=== PATIENT | male | born 1975 | race Caucasian/White ===

== ENCOUNTER → 2017-09-28 | Outpatient (CLI) | payer BC | END | disposition home or self-care (01) | LOC: LABWHC1 08:47 | PROVIDERS: ATTEND Orthopaedic Surgery | DX: E55.9 Vitamin D deficiency, unspecified (principal) | CPT/HCPCS: 36415; 82306 ==

== ENCOUNTER → 2017-10-30 | Outpatient (CLI) | payer BC ==
--- NOTE | 2017-10-30 10:22 | CT ---
EXAMINATION TYPE: CT ankle RT wo con DATE OF EXAM: 10/30/2017 COMPARISON: NONE HISTORY: Right ankle pain. History of diabetic neuropathy, foot ulcerations, Charcot joint, prior lef t great toe amputation and contractures. CT DLP: 287 mGycm Automated exposure control for dose reduction was used. TECHNIQUE: Contiguous axial CT slices were obtained of the right ankle without intravenous contrast. Coronal and sagittal reformats were obtained for review. FINDINGS: There is been interval surgical fusion of the right medial hindfoot, midfoot and forefoot extending f rom the talus through the navicular into the first cuneiform and throughout the entirety of the first metatarsal abutting the first metatarsal phalangeal joint. As seen on the prior exam there are exten sive osseous erosions, subchondral cysts, and osseous bone cysts primarily involving the midfoot part icularly of the navicular, first cuneiform, and second cuneiform but also involving the third cuneifo rm and cuboid bone to lesser degree. Osseous cysts are also seen within the calcaneus and talus. Larg e protuberant Achilles and plantar enthesophytes are seen. Degenerative changes are also identified o f the proximal interphalangeal joints and distal interphalangeal joints. No new acute fracture is see n. Chronic fracture deformity is noted of the third distal and mid diaphyseal metatarsal. Innumerable osseous fragments are seen within the midfoot from the known Charcot joint. Soft tissue swelling is seen circumferentially overlying the midfoot and to a lesser degree within the forefoot. Evaluation o f the ligaments and tendons is limited on CT. Achilles appears intact. No new focal fluid collection is identified. Tibiotalar joint space is maintained ankle mortise is intact. IMPRESSION: INTERVAL SURGICAL FUSION OF THE HINDFOOT AND FOREFOOT MEDIALLY WITH EXTENSIVE ARTHROPATHY, EROSIONS, AND CHARCOT JOINT OF THE RIGHT MIDFOOT. THERE IS PRESUMED COMPONENT OF OSTEOARTHRITIS GIVEN THE DISTR IBUTION AND INVOLVEMENT OF THE INTERPHALANGEAL JOINTS. DIFFUSE SOFT TISSUE SWELLING IS NOTED WITHOUT NEW FOCAL FLUID COLLECTION. NO NEW FRACTURE OR DISLOCATION.
== END | disposition home or self-care (01) ==
LOC: RADCTMAIN 06:53
PROVIDERS: ATTEND Orthopaedic Surgery
DX: M12.871 Other specific arthropathies, not elsewhere classified, right ankle and foot (principal); M85.871 Other specified disorders of bone density and structure, right ankle and foot; A52.16 Charcot's arthropathy (tabetic); Z98.890 Other specified postprocedural states

== ENCOUNTER → 2018-02-24 | Outpatient (CLI) | payer BC | END | disposition home or self-care (01) | LOC: LABWHC1 08:51 | PROVIDERS: ATTEND Thoracic Surgery (Cardiothoracic Vascular Surgery) | DX: E63.8 Other specified nutritional deficiencies (principal) | CPT/HCPCS: 36415; 84134 ==

== ENCOUNTER → 2018-03-17 | Outpatient (CLI) | payer BC ==
--- NOTE | 2018-03-17 13:38 | NM ---
EXAMINATION TYPE: NM bone 3 phase DATE OF EXAM: 03/17/2018 COMPARISON: 07/10/2015 HISTORY: Line Triple phase bone scintigraphy was performed following the injection of 24.525 mCi Tc 99m MDP. Immed iate images and 4 hours post injection images acquired. FINDINGS: There is increased perfusion to the right ankle and foot. Increased soft tissue radiotracer uptake is seen involving the proximal aspect of the right foot on blood pool images. Delayed imaging demonstrates focal increased uptake involving the right first digit and distal tarsal bones. IMPRESSION: Findings are suggestive of osteomyelitis and cellulitis right foot..
== END | disposition home or self-care (01) ==
LOC: RADNMMAIN 07:15
PROVIDERS: ATTEND Thoracic Surgery (Cardiothoracic Vascular Surgery)
DX: E13.621 Other specified diabetes mellitus with foot ulcer (principal); M86.8X8 Other osteomyelitis, other site
CPT/HCPCS: 78315; A9503

== ENCOUNTER → 2018-11-05 | Outpatient (CLI) | payer BC ==
--- NOTE | 2018-11-05 10:58 | XR ---
Left foot HISTORY: Osteomyelitis 3 views of the left foot Correlation to prior exam 01/25/2016 There is been interval amputation at the metatarsophalangeal joint of the first digit, small bone fra gment remains just distal to the distal aspect of the first metatarsal. Cortical thickening of the se cond metatarsal distally is stable, arthropathy is again noted at the metatarsophalangeal joint of th e second digit with some questionable sclerosis of the proximal phalanx of the second digit, and also at the third digit shows arthropathy. There is some lateral subluxation of the metatarsophalangeal j oint of the third digit with an ossific density present laterally which is well-corticated. No defini te periosteal reaction to suggest osteomyelitis. Soft tissue swelling is present within the forefoot. There is a plantar calcaneal spur. Enthesophyte present at the insertion of the Achilles tendon. Art hropathy present at the intertarsal joints, tibiotalar joint. IMPRESSION: Sclerotic change of the proximal phalanx of the second digit could be related to infectio n, MRI may be of benefit. Soft tissue swelling. Additional findings above.
== END | disposition home or self-care (01) ==
LOC: RADXRMAIN 09:12
PROVIDERS: ATTEND Internal Medicine Infectious Disease
DX: M89.8X7 Other specified disorders of bone, ankle and foot (principal); M86.8X8 Other osteomyelitis, other site

== ENCOUNTER → 2018-11-17 | Outpatient (CLI) | payer BC | END | disposition home or self-care (01) | LOC: RADMRIMAIN 10:52 | PROVIDERS: ATTEND Internal Medicine Infectious Disease | DX: Z53.9 Procedure and treatment not carried out, unspecified reason (principal); M86.8X8 Other osteomyelitis, other site ==

== ENCOUNTER → 2018-11-24 | Outpatient (CLI) | payer BC ==
--- NOTE | 2018-11-24 08:45 | MR ---
EXAMINATION TYPE: MR foot LT wo/w con DATE OF EXAM: 11/24/2018 COMPARISON: 08/01/2013 HISTORY: Osteomyelitis, left foot CONTRAST: Standard multiplanar, multisequence MRI departmental protocol utilizing 13 mL intravenous Gadavist ga dolinium contrast. FINDINGS: There appears to be previous amputation involving the first digit. There is soft tissue samuel ma and skin thickening overlying the distal margin of the metatarsals and phalanges. There is marked arthropathy of the MTP joint of the second and third digit with lesser involvement involving the four th and fifth digits. There is increased soft tissue surrounding the joint space of the second MTP monse nt does not appear to be entirely compatible with fluid attenuation may be related to synovitis and s urrounding inflammatory change.. There appears to be a soft tissue adjacent to the head of the second metatarsal correlate for ulceration No diagnostic evidence of marrow edema to suggest osteomyelitis. Chronic deformities involving the he ad of the second and third metatarsals. No pathologic marrow enhancement. IMPRESSION: 1. Findings are felt to be compatible with cellulitis and previous surgery but no diagnostic evidence of osteomyelitis. 2. There is a thickening and a small amount of fluid within the second MTP joint. This likely is post infectious. Findings may been the basis of a synovitis. Marrow signal changes are felt to be chronic with no diagnostic evidence of osteomyelitis.
== END ==
LOC: RADMRIMAIN 07:01
PROVIDERS: ATTEND Internal Medicine Infectious Disease
DX: M25.872 Other specified joint disorders, left ankle and foot (principal)
CPT/HCPCS: 73720; A9585

== ENCOUNTER → 2018-12-31 | Outpatient (CLI) | payer BC ==
[2018-12-31 16:00] LABS: Albumin 4.5 g/dL (3.80-4.90); Albumin/Globulin Ratio 2.25 (1.60-3.17); Anion Gap 6.9 mmol/L (4.00-12.00); Calcium 9.4 mg/dL (8.7-10.3); Carbon Dioxide 26.1 mmol/L (21.6-31.8); LDL Cholesterol,Calculated 33.4 mg/dL (0.0-131.0); Potassium 5.1 mmol/L (3.5-5.5); Total Bilirubin 0.5 mg/dL (0.2-1.2); Total Protein 6.5 g/dL (6.2-8.2); VLDL Calculation 44.6 mg/dL (5.00-40.00)
== END ==
LOC: LABWHC1 09:14
PROVIDERS: ATTEND Internal Medicine Endocrinology, Diabetes & Metabolism
DX: E11.65 Type 2 diabetes mellitus with hyperglycemia (principal)
CPT/HCPCS: 36415; 80053; 80061; 82043; 82570; 83036; 84443

== ENCOUNTER → 2019-06-20 | Outpatient (CLI) | payer BC ==
[2019-06-20 17:39] LABS: African American GFR (CKD) 125.9 (60.0-200.0); Albumin 4.5 g/dL (3.80-4.90); Albumin/Globulin Ratio 2.5 (1.60-3.17); Anion Gap 8.7 mmol/L (4.00-12.00); BUN/Creat Ratio 22.5 Ratio (12.00-20.00); Calcium 9.2 mg/dL (8.7-10.3); Carbon Dioxide 26.3 mmol/L (21.6-31.8); Chol/HDL Ratio 3.81; Globulin 1.8 g/dL (1.6-3.3); Total Bilirubin 0.6 mg/dL (0.2-1.2); Total Protein 6.3 g/dL (6.2-8.2)
[2019-06-20 19:44] LABS: Hemoglobin A1C 5.6 % (4.0-6.0)
== END | disposition home or self-care (01) ==
LOC: LABWHC1 08:35
PROVIDERS: ATTEND Internal Medicine Endocrinology, Diabetes & Metabolism
DX: E11.9 Type 2 diabetes mellitus without complications (principal)
CPT/HCPCS: 36415; 80053; 80061; 82043; 82570; 83036; 84443

== ENCOUNTER 2020-12-21 09:51 | Inpatient (IN) | payer BC ==
[2020-12-21] MEDS ORDERED: VANCOMYCIN IV PER PHARMACY 1 EACH MISC MISCELLANE PRN (10:18)
[2020-12-21] MEDS ORDERED: ACETAMINOPHEN TAB 325 MG TAB PO STA (10:18)
[2020-12-21] MEDS ORDERED: CEFEPIME 1 GM in SODIUM CHLORIDE 0.9% 50 ML IVPB STA (10:22)
--- NOTE | 2020-12-21 10:24 | ED ---
Extremity Problem HPI - General Chief complaint: Extremity Problem,Nontraumatic Stated complaint: Rt Foot Infection Time Seen by Provider: 12/21/20 10:08 Source: patient Mode of arrival: wheelchair Limitations: physical limitation - History of Present Illness Initial comments: 45-year-old male with history of type 2 diabetes with recurrent A1c between 5-6, HTN, HLD, neuropathy, charcots joint (right) s/p surgical intervention resides emergency department today for chief complaint of worsening right foot infection. Pt states that he has been on bactrim for the past few days secondary to a right foot infection, he states that the infection appears to be worsening and the foot in swollen/red and painful. patient states he has had chills, denies recording fevers but has been taking ibuprofen almost around the clock. Pt states he also has a worsening wound of the left great toe area at site of previous amputation. Patient denies additional complaints or concerns. Upon arrival pt HR is elevated and his temperature is 99.7F. - Related Data Home Medications Medication Instructions Recorded Confirmed Multivitamin [Multivitamins] 1 tab PO DAILY 12/19/13 12/21/20 Pravastatin Sodium [Pravachol] 10 mg PO HS 08/03/17 12/21/20 Dulaglutide [Trulicity] 0.75 mg SQ HARRELL 11/01/18 12/21/20 Ertugliflozin Pidolate [Steglatro] 5 mg PO DAILY 11/01/18 12/21/20 Metoprolol Tartrate [Lopressor] 25 mg PO BID 12/21/20 12/21/20 Sulfamethoxazole/Trimethoprim 1 tab PO BID 12/21/20 12/21/20 [Bactrim DS 800-160 mg] lisinopriL 40 mg PO HS 12/21/20 12/21/20 Allergies Allergy/AdvReac Type Severity Reaction Status Date / Time amlodipine [From Norvasc] Allergy Intermediate Rash/Hives Verified 12/21/20 12:25 amoxicillin trihydrate Allergy Rash/Hives Verified 12/21/20 12:25 [From Augmentin] ciprofloxacin [From Cipro] Allergy Unknown Verified 12/21/20 12:25 ciprofloxacin HCl Allergy Unknown Verified 12/21/20 12:25 [From Cipro] cyclobenzaprine HCl Allergy Rash/Hives Verified 12/21/20 12:25 [From Flexeril] potassium clavulanate Allergy Rash/Hives Verified 12/21/20 12:25 [From Augmentin] Review of Systems ROS Statement: Those systems with pertinent positive or pertinent negative responses have been documented in the HPI. ROS Other: All systems not noted in ROS Statement are negative. Past Medical History Past Medical History: Diabetes Mellitus, Hyperlipidemia, Hypertension, Neurologic Disorder, Sleep Apnea/CPAP/BIPAP Additional Past Medical History / Comment(s): neuropathy to feet, prior wound left toe-went to wound center for, no CPAP History of Any Multi-Drug Resistant Organisms: None Reported Past Surgical History: Appendectomy, Orthopedic Surgery Additional Past Surgical History / Comment(s): vasectomy, left big toe amputated,right foot surgery Past Anesthesia/Blood Transfusion Reactions: No Reported Reaction Past Psychological History: No Psychological Hx Reported Smoking Status: Never smoker Past Alcohol Use History: None Reported Past Drug Use History: None Reported - Past Family History Brother(s) Additional Family Medical History / Comment(s): anxiety Father Family Medical History: COPD, Deep Vein Thrombosis (DVT), Hyperlipidemia, Hypertension Additional Family Medical History / Comment(s): PAD, PART OF LEG AMP Mother Family Medical History: Cancer, COPD, CVA/TIA, Diabetes Mellitus, Hypertension Additional Family Medical History / Comment(s): bipolar,anxiety,depression,smoking General Exam - General Exam Comments Initial Comments: General: The patient is awake and alert, in no distress Eye: +3 mm pupils are equal, round and reactive to light, extra-ocular movements are intact. No nystagmus. There is normal conjunctiva bilaterally. No signs of icterus. Ears, nose, mouth and throat: There are moist mucous membranes and no oral lesions. Neck: The neck is supple, there is no tenderness or JVD. Cardiovascular: There is a regular rate and rhythm. No murmur, rub or gallop is appreciated. Respiratory: Lungs are clear to auscultation, respirations are non-labored, breath sounds are equal. No wheezes, stridor, rales, or rhonchi. Gastrointestinal: Soft, non-distended, non-tender abdomen without masses or organomegaly noted. There is no rebound or guarding present. Musculoskeletal: Normal ROM, no tenderness. Strength 5/5. Sensation intact. Pulses equal bilaterally 2+. Neurological: A&O x 3. CN II-XII intact, There are no obvious motor or sensory deficits. Coordination appears grossly intact. Speech is normal. Skin: Skin is warm and dry and no rashes. swolllen warm right foot/ankle, lesion on pad of great toe. there is left foot lesion at MCP joint at site of previous amputation. no significant drainage. Psychiatric: Cooperative, appropriate mood & affect, normal judgment. Limitations: physical limitation Course Vital Signs 12/21/20 12/21/20 10:00 12:03 Temperature 99.7 F H Pulse Rate 110 H 107 H Respiratory 18 18 Rate Blood Pressure 118/71 112/65 O2 Sat by Pulse 97 96 Oximetry Medical Decision Making - Medical Decision Making Mild leukocytosis. hx of fevers. no osteo noted. patient will be admitted on IV abx for failed outpatient cellulitis/infected wound. Dr Cifuentes agreeable to care plan. Dr Orellana accepted admission. - Lab Data Result diagrams: 12/21/20 10:29 12/21/20 10:29 Lab Results 12/21/20 12/21/20 12/21/20 Range/Units 10:29 10:29 10:29 WBC 10.9 H (3.8-10.6) k/uL RBC 4.70 (4.30-5.90) m/uL Hgb 14.0 (13.0-17.5) gm/dL Hct 40.3 (39.0-53.0) % MCV 85.8 (80.0-100.0) fL MCH 29.7 (25.0-35.0) pg MCHC 34.6 (31.0-37.0) g/dL RDW 13.7 (11.5-15.5) % Plt Count 334 (150-450) k/uL MPV 8.0 Neutrophils % 83 % Lymphocytes % 7 % Monocytes % 9 % Eosinophils % 1 % Basophils % 0 % Neutrophils # 9.0 H (1.3-7.7) k/uL Lymphocytes # 0.7 L (1.0-4.8) k/uL Monocytes # 1.0 (0-1.0) k/uL Eosinophils # 0.1 (0-0.7) k/uL Basophils # 0.0 (0-0.2) k/uL PT 11.6 (9.0-12.0) sec INR 1.1 (<1.2) APTT 23.8 (22.0-30.0) sec Sodium 133 L (137-145) mmol/L Potassium 4.9 (3.5-5.1) mmol/L Chloride 101 (98-107) mmol/L Carbon Dioxide 22 (22-30) mmol/L Anion Gap 10 mmol/L BUN 12 (9-20) mg/dL Creatinine 0.79 (0.66-1.25) mg/dL Est GFR (CKD-EPI)AfAm >90 (>60 ml/min/1.73 sqM) Est GFR (CKD-EPI)NonAf >90 (>60 ml/min/1.73 sqM) Glucose 261 H (74-99) mg/dL Plasma Lactic Acid Juan (0.7-2.0) mmol/L Calcium 9.4 (8.4-10.2) mg/dL Total Bilirubin 1.0 (0.2-1.3) mg/dL AST 37 (17-59) U/L ALT 40 (4-49) U/L Alkaline Phosphatase 109 (38-126) U/L Total Protein 6.3 (6.3-8.2) g/dL Albumin 3.3 L (3.5-5.0) g/dL 12/21/20 Range/Units 10:29 WBC (3.8-10.6) k/uL RBC (4.30-5.90) m/uL Hgb (13.0-17.5) gm/dL Hct (39.0-53.0) % MCV (80.0-100.0) fL MCH (25.0-35.0) pg MCHC (31.0-37.0) g/dL RDW (11.5-15.5) % Plt Count (150-450) k/uL MPV Neutrophils % % Lymphocytes % % Monocytes % % Eosinophils % % Basophils % % Neutrophils # (1.3-7.7) k/uL Lymphocytes # (1.0-4.8) k/uL Monocytes # (0-1.0) k/uL Eosinophils # (0-0.7) k/uL Basophils # (0-0.2) k/uL PT (9.0-12.0) sec INR (<1.2) APTT (22.0-30.0) sec Sodium (137-145) mmol/L Potassium (3.5-5.1) mmol/L Chloride (98-107) mmol/L Carbon Dioxide (22-30) mmol/L Anion Gap mmol/L BUN (9-20) mg/dL Creatinine (0.66-1.25) mg/dL Est GFR (CKD-EPI)AfAm (>60 ml/min/1.73 sqM) Est GFR (CKD-EPI)NonAf (>60 ml/min/1.73 sqM) Glucose (74-99) mg/dL Plasma Lactic Acid Juan 1.7 (0.7-2.0) mmol/L Calcium (8.4-10.2) mg/dL Total Bilirubin (0.2-1.3) mg/dL AST (17-59) U/L ALT (4-49) U/L Alkaline Phosphatase (38-126) U/L Total Protein (6.3-8.2) g/dL Albumin (3.5-5.0) g/dL Disposition Clinical Impression: Right foot infection, Wound of right foot, Wound of left foot Disposition: ADMITTED IP TO THIS [facility] Condition: Stable Is patient prescribed a controlled substance at d/c from ED?: No Time of Disposition: 13:17 Decision to Admit Reason: Admit from EC Decision Date: 12/21/20 Decision Time: 13:17
[2020-12-21] MEDS ORDERED: VANCOMYCIN 2,000 MG in SODIUM CHLORIDE 0.9% 500 ML 500 ML IVPB STA (10:27)
[2020-12-21] MEDS: SODIUM CHLORIDE 0.9% 500 ML 500 ML IV SCH ×2 (11:11→11:12)
[2020-12-21] MEDS: SODIUM CHLORIDE 0.9% 1,000 ML IV SCH ×3 (11:11→23:35)
[2020-12-21 11:33] LABS: INR 1.1 (<1.2); Partial Thromboplastin Time 23.8 sec (22.0-30.0); Prothrombin Time 11.6 sec (9.0-12.0)
[2020-12-21 11:37] LABS: ALT 40 U/L (4-49); AST 37 U/L (17-59); African American GFR (CKD) >90 (>60 ml/min/1.73 sqM); Albumin 3.3 g/dL (3.5-5.0); Alkaline Phosphatase 109 U/L (38-126); Anion Gap 10 mmol/L; Blood Urea Nitrogen 12 mg/dL (9-20); Calcium 9.4 mg/dL (8.4-10.2); Carbon Dioxide 22 mmol/L (22-30); Chloride 101 mmol/L (98-107); Glucose 261 mg/dL (74-99); Non-African American GFR(CKD) >90 (>60 ml/min/1.73 sqM); Potassium 4.9 mmol/L (3.5-5.1); Sodium 133 mmol/L (137-145); Total Protein 6.3 g/dL (6.3-8.2)
[2020-12-21 12:10] LABS: Basophils % (A) 0 %; Eosinophils # (A) 0.1 k/uL (0-0.7); Eosinophils % (A) 1 %; HCT 40.3 % (39.0-53.0); Lymphocytes # (A) 0.7 k/uL (1.0-4.8); Lymphocytes % (A) 7 %; MCH 29.7 pg (25.0-35.0); MCHC 34.6 g/dL (31.0-37.0); MCV 85.8 fL (80.0-100.0); Monocytes % (A) 9 %; Neutrophils % (A) 83 %; Platelet Count 334 k/uL (150-450); RDW 13.7 % (11.5-15.5); WBC 10.9 k/uL (3.8-10.6)
--- NOTE | 2020-12-21 12:57 | CT ---
EXAMINATION TYPE: CT foot RT wo con DATE OF EXAM: 12/21/2020 COMPARISON: 10/30/2017 HISTORY: Right foot infection CT DLP: 266.5 mGycm Automated exposure control for dose reduction was used. Contrast: None Technique: Axial images 2 mm thick sections. Reconstructed images in the coronal and sagittal plane. FINDINGS: There is extensive degenerative changes to the tarsal metatarsal region compatible with Charcot joint . A fixation screw through the first metatarsal and medial cuneiform is fractured and displaced from the talar extension. Diffuse soft tissue swelling is present through the foot. Despite extensive irre gularity of the foot, suspicious cortical erosions are not identified. However, more subtle early lin nges may be difficult to exclude. Large calcaneal heel spurs are present. There is flattening of the plantar arch. IMPRESSION: 1. EXTENSIVE SOFT TISSUE SWELLING COMPATIBLE WITH CELLULITIS. CORRELATE WITH PATIENT'S SYMPTOMS. OBVI OUS OSTEOMYELITIS IS NOT EVIDENT. 2. FRACTURE OF THE ARTHRODESIS SCREW TO THE FIRST METATARSAL TO THE TALUS. THE SCREW IS FRACTURED AT THE CUNEIFORM TALAR JUNCTION. 3. FINDINGS APPEARS SUGGESTIVE FOR CHARCOT JOINT.
[2020-12-21] MEDS ORDERED: NALOXONE 0.4 MG/ML 1 ML VIAL IV PRN (13:16)
--- NOTE | 2020-12-21 13:45 | XR ---
EXAMINATION TYPE: XR foot complete RT DATE OF EXAM: 12/21/2020 COMPARISON: 11/05/2018 HISTORY: Infection TECHNIQUE: 3 view right foot FINDINGS: There is a screw within the first metatarsal extending through the cuneiform towards the ta kristi. The screw is fractured at the cuboid cuneiform talus junction. Extensive changes are through the midfoot. Old fractures of the distal second and third metatarsals are likely present. No suspicious cortical erosions are identified. Large plantar and Achilles tendon calcaneal heel spurs are present. Is loss of the plantar arch. Soft tissue swelling is present. No suspicious cortical erosions are id entified. IMPRESSION: 1. Findings compatible with Charcot joint through the midfoot. 2. There is fracture of the arthrodesis screw at the talocuneiform junction. 3. Diffuse soft tissue swelling. 4. No suspicious radiographic changes for osteomyelitis.
[2020-12-21 16:46] LABS: Glucose,Whole Blood 186 mg/dL (75-99)
[2020-12-21] MEDS: CEFEPIME 2 GM in SODIUM CHLORIDE 0.9% 100 ML IVPB SCH (17:16)
--- NOTE | 2020-12-21 17:23 | P.HPIM ---
History of Present Illness 45-year-old male came in with infection of the right foot has a plantar ulcer ulcer in the metatarsal area with significant swelling of the right foot with redness and localized of temperature and patient is a being admitted for cell ulitis wound infection was started on cefepime and vancomycin. Patient has short course joint for which patient underwent corrective surgery and has a metal screws extending from the first metatarsal joint of the talus bone. 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 Patient does have history of diabetes with us. With recent hemoglobin A1c between 5 and 6 has low- grade temperature patient is complaining of moderate pain. Review of Systems REVIEW OF SYSTEMS: CONSTITUTIONAL: No fever, no malaise, no fatigue. HEENT: No recent visual problems or hearing problems. Denied any sore throat. CARDIOVASCULAR: No chest pain, orthopnea, PND, no palpitations, no syncope. PULMONARY: No shortness of breath, no cough, no hemoptysis. GASTROINTESTINAL: No diarrhea, no nausea, no vomiting, no abdominal pain. NEUROLOGICAL: No headaches, no weakness, no numbness. HEMATOLOGICAL: Denies any bleeding or petechiae. GENITOURINARY: Denies any burning micturition, frequency, or urgency. MUSCULOSKELETAL/RHEUMATOLOGICAL: As mentioned in the interval history ENDOCRINE: Denies any polyuria or polydipsia. The rest of the 14-point review of systems is negative. Past Medical History Past Medical History: Diabetes Mellitus, Hyperlipidemia, Hypertension, Neurologic Disorder, Sleep Apnea/CPAP/BIPAP Additional Past Medical History / Comment(s): neuropathy to feet, prior wound left toe-went to wound center for, no CPAP History of Any Multi-Drug Resistant Organisms: None Reported Past Surgical History: Appendectomy, Orthopedic Surgery Additional Past Surgical History / Comment(s): vasectomy, left big toe amputated,right foot surgery Past Anesthesia/Blood Transfusion Reactions: No Reported Reaction Past Psychological History: No Psychological Hx Reported Smoking Status: Never smoker Past Alcohol Use History: None Reported Past Drug Use History: None Reported - Past Family History Brother(s) Additional Family Medical History / Comment(s): anxiety Father Family Medical History: COPD, Deep Vein Thrombosis (DVT), Hyperlipidemia, Hypertension Additional Family Medical History / Comment(s): PAD, PART OF LEG AMP Mother Family Medical History: Cancer, COPD, CVA/TIA, Diabetes Mellitus, Hypertension Additional Family Medical History / Comment(s): bipolar,anxiety,depression,smoking Medications and Allergies Home Medications Medication Instructions Recorded Confirmed Type Multivitamin [Multivitamins] 1 tab PO DAILY 12/19/13 12/21/20 History Pravastatin Sodium [Pravachol] 10 mg PO HS 08/03/17 12/21/20 History Dulaglutide [Trulicity] 0.75 mg SQ HARRELL 11/01/18 12/21/20 History Ertugliflozin Pidolate [Steglatro] 5 mg PO DAILY 11/01/18 12/21/20 History Metoprolol Tartrate [Lopressor] 25 mg PO BID 12/21/20 12/21/20 History Sulfamethoxazole/Trimethoprim 1 tab PO BID 12/21/20 12/21/20 History [Bactrim DS 800-160 mg] lisinopriL 40 mg PO HS 12/21/20 12/21/20 History Allergies Allergy/AdvReac Type Severity Reaction Status Date / Time amlodipine [From Norvasc] Allergy Intermediate Rash/Hives Verified 12/21/20 12:25 amoxicillin trihydrate Allergy Rash/Hives Verified 12/21/20 12:25 [From Augmentin] ciprofloxacin [From Cipro] Allergy Unknown Verified 12/21/20 12:25 ciprofloxacin HCl Allergy Unknown Verified 12/21/20 12:25 [From Cipro] cyclobenzaprine HCl Allergy Rash/Hives Verified 12/21/20 12:25 [From Flexeril] potassium clavulanate Allergy Rash/Hives Verified 12/21/20 12:25 [From Augmentin] Physical Exam Vitals: Vital Signs Temp Pulse Pulse Resp BP BP Pulse Ox 12/21/20 14:51 98.8 F 95 16 126/70 97 12/21/20 12:03 107 H 18 112/65 96 12/21/20 10:00 99.7 F H 110 H 18 118/71 97 Intake and Output 12/21/20 12/21/20 12/21/20 06:59 14:59 22:59 Other: Weight 119.748 kg PHYSICAL EXAMINATION: GENERAL: The patient is alert and oriented x3, not in any acute distress. Well developed, well nourished. HEENT: Pupils are round and equally reacting to light. EOMI. No scleral icterus. No conjunctival pallor. Normocephalic, atraumatic. No pharyngeal erythema. No thyromegaly. CARDIOVASCULAR: S1 and S2 present. No murmurs, rubs, or gallops. PULMONARY: Chest is clear to auscultation, no wheezing or crackles. ABDOMEN: Soft, nontender, nondistended, normoactive bowel sounds. No palpable organomegaly. MUSCULOSKELETAL: Right foot as mentioned below EXTREMITIES: No cyanosis, clubbing, or pedal edema. NEUROLOGICAL: Gross neurological examination did not reveal any focal deficits. SKIN: Right foot is significantly swollen with a Plantar ulcer appears to be around stage III ulcer patient had a corrective surgery Scar for her Charcot's and patient does have deformity consistent with charcot's Results CBC & Chem 7: 12/21/20 10:29 12/21/20 10:29 Labs: Abnormal Lab Results - Last 24 Hours (Table) 12/21/20 12/21/20 12/21/20 Range/Units 10:29 10:29 16:37 WBC 10.9 H (3.8-10.6) k/uL Neutrophils # 9.0 H (1.3-7.7) k/uL Lymphocytes # 0.7 L (1.0-4.8) k/uL Sodium 133 L (137-145) mmol/L Glucose 261 H (74-99) mg/dL POC Glucose (mg/dL) 186 H (75-99) mg/dL Albumin 3.3 L (3.5-5.0) g/dL Thrombosis Risk Factor Assmnt - Choose All That Apply Any of the Below Risk Factors Present?: Yes Each Factor Represents 1 point: Age 41-60 years, Obesity (BMI >25) Other Risk Factors: No Other congenital or acquired thrombophilia - If yes, enter type in comment: No Thrombosis Risk Factor Assessment Total Risk Factor Score: 2 Thrombosis Risk Factor Assessment Level: Low Risk Assessment and Plan Plan: -Foot infection, severe neuropathy and an infected ulcer with cellulitis.: Patient will be continued on the cefepime and vancomycin infectious disease was consulted as to surgery was consulted. -Charcot's foot and neuropathy -Type 2 diabetes mellitus: Well controlled blood sugars at home patient will be resumed on home regimen along with sliding scale next and-hyperlipidemia -Hypertension -Sleep apnea continue CPAP machine DVT prophylaxis with Lovenox
[2020-12-21] MEDS: ACETAMINOPHEN TAB 325 MG TAB PO PRN (17:32)
--- NOTE | 2020-12-21 18:01 | CONS ---
CONSULTATION DATE OF SERVICE: 12/21/2020 REASON FOR CONSULTATION: Right diabetic foot infection. HISTORY OF PRESENT ILLNESS: The patient is a 45-year-old male with a past medical history significant for hypertension, hyperlipidemia. The patient did have right Charcot deformity to the right foot. This patient did have multiple surgeries and history of recurrent ulceration to the right foot. The patient did develop a callus on the plantar aspect of the right foot that has opened up bleeding to ulceration formation in August of 2020. The patient has been treating himself. The patient started having pain and swelling and redness to the right foot area that started on Thursday that is 3 days prior to presentation to the hospital. The patient describes the pain to be sharp and almost 10/10 when he walks on it with some relief after the patient is not walking on it. The patient apparently has been evaluated in the outpatient setting and been treated with oral Bactrim DS without any improvement. Hence the patient decided to come to the hospital. The patient complaining of rigors and chills but did not mention any high-grade fever on presentation to the hospital. The patient did have fever of 99.7 degrees Fahrenheit. The patient did have white count of 10.9 with left shift. Kidney function was normal. The patient did have x-rays of the foot. Findings compatible with Charcot joint through the midfoot fracture. Arthrodesis screw at the junction talocalcaneal junction. Diffuse soft tissue swelling. The patient did have a CT of the foot completed shows extensive soft tissue swelling compatible with cellulitis, osteomyelitis not evident. Findings suggestive of Charcot joint. The patient was given a dose of cefepime. He was started on vancomycin and has been admitted to the hospital. Infectious Disease was consulted for further management of antibiotic therapy. REVIEW OF SYSTEMS: Positive points have been mentioned in HPI. Rest of systems are negative. PAST MEDICAL HISTORY: Diabetes mellitus, hyperlipidemia, hypertension, Charcot deformity, sleep apnea, and did have a history of recurrent wounds to the right foot. PAST SURGICAL HISTORY: Appendectomy, vasectomy, left big toe amputation, right foot surgery. SOCIAL HISTORY: Denies smoking, drinking or any drug use. FAMILY HISTORY: Father with history of COPD, DVT. Mother with history of COPD, bipolar, anxiety, depression. ALLERGIES: TO MULTIPLE MEDICATIONS INCLUDING AMOXICILLIN, CIPROFLOXACIN, AMLODIPINE. MEDICATIONS: The patient is currently on vancomycin pharmacy to dose. He is on IV fluids and Narcan. PHYSICAL EXAMINATION: Blood pressure 126/70 with a pulse of 67, temperature 98.8, T-max is 98.7. He is 97% on room air. General description: The patient is a middle-aged male lying in bed in no distress. No tachypnea or accessory muscles of respiration use. HEENT: Shows no pallor or scleral icterus. Oral mucous membranes dry. NECK: Trachea central. No thyromegaly. LUNGS unlabored breathing. Clear to auscultation anteriorly. No wheeze or crackles. HEART S1, S2. Regular rate and rhythm. ABDOMEN: Soft, no tenderness. No guarding or rigidity. EXTREMITIES: No edema of the feet. Examination of the right foot did have Charcot deformity. The right foot is swollen and red and warm to touch with ulceration on the plantar aspect. No foul- smelling drainage. NEUROLOGICAL: Patient is awake, alert, oriented times three. Mood and affect normal. LABORATORY DATA: Hemoglobin 14, white count 10.9, BUN of 12, creatinine 0.79. His liver enzymes are normal. Electrolytes are normal. His CT and x-ray report as mentioned above. DIAGNOSTIC IMPRESSION AND PLAN: 1. Patient with extensive right diabetic foot infection in this patient who did have a Charcot deformity and chronic ulceration which has been there for almost 5 months now, likely the source of this infection. We will need to cover for both Gram- positive as well as Gram-negative pathogen. There is no evidence of any gas formation on the CT. 2. PATIENT DID HAVE MULTIPLE ANTIBIOTIC ALLERGIES that will limit the number of antibiotics safe to use. PLAN: 1. The patient needs a vascular surgery evaluation for possible I and D, drainage and deep cultures. This was discussed with the surgeon on the phone. 2. Vancomycin, pharmacy to dose target trough of 15 will continue. 3. We will add cefepime 2 grams q.8 hours. 4. We will obtain aerobic and anaerobic cultures to guide further antibiotic therapy. 5. We will follow on clinical condition and further adjust medication if needed. Thank you for this consultation. We will follow this patient along with you. MMODL / IJN: [id number] / MTDD
[2020-12-21] MEDS: METOPROLOL TARTRATE 25 MG TAB PO SCH (19:54)
[2020-12-21] MEDS: lisinopriL 20 MG TAB PO SCH (19:54)
[2020-12-21] MEDS: PRAVASTATIN SODIUM 20 MG TAB PO SCH (19:55)
[2020-12-21] MEDS: VANCOMYCIN 1,750 MG in SODIUM CHLORIDE 0.9% 500 ML 500 ML IVPB SCH (19:55)
[2020-12-22] MEDS: CEFEPIME 2 GM in SODIUM CHLORIDE 0.9% 100 ML IVPB SCH ×4 (00:10→23:25)
[2020-12-22] MEDS: VANCOMYCIN 1,750 MG in SODIUM CHLORIDE 0.9% 500 ML 500 ML IVPB SCH ×3 (05:31→19:40)
[2020-12-22 07:03] LABS: Glucose,Whole Blood 247 mg/dL (75-99)
[2020-12-22] MEDS ORDERED: INSULIN ASPART (NovoLOG) 100 UNIT/ML VIAL SQ SCH (07:30)
[2020-12-22] MEDS: ERTUGLIFLOZIN PIDOLATE 5 MG PO SCH (07:35)
[2020-12-22] MEDS: METOPROLOL TARTRATE 25 MG TAB PO SCH ×2 (07:41→19:41)
--- NOTE | 2020-12-22 09:18 | P.GSCN ---
History of Present Illness History of present illness: 45-year-old white male, history of diabetes patient came with marked swelling and redness of the right foot patient has a ulcer on the plantar aspect of the right foot for the past 2 months. Patient had a surgery by Dr. Krueger for Charcot foot foot screws has been placed at that time no patient has a fracture of the first metatarsal bone. This is a marked redness and fluctuation noted on the plantar and dorsal suspect of the left foot suggestive of a infection. Patient also has a ulcer on the plantar surface aspect of the left foot had a left big toe pressure done in the past. Patient is an IV antibiotic under care of infectious disease Neck examination neck is supple no bruit appreciated Chest pulses second sound normal good entry both lungs Abdomen soft nontender vascular examination femorals are 1+ bilateral posterior tibial dorsal pedis by the Doppler Impression infected wound left foot with some drainage and the right foot plantar aspect open wound with ulcer and marked swelling and tenderness of the dorsal suspect the foot Plan is to have discussed in detail patient has a Charcot foot foot nonfunctional with marked infection and a chronic ulcer on the dorsal suspect of the foot prognosis guarde option #1 is discharged articular to the foot on the right side and below-knee amputation #2 is a we will take the patient the OR explored the wound and drain the past and and debridement the wound of the both feet patient wanted us to do the option about 2 first and then we'll discuss about amputation we will arrange for this today Past Medical History Past Medical History: Diabetes Mellitus, Hyperlipidemia, Hypertension, Neurologic Disorder, Sleep Apnea/CPAP/BIPAP Additional Past Medical History / Comment(s): neuropathy to feet, prior wound left toe-went to wound center for, no CPAP History of Any Multi-Drug Resistant Organisms: None Reported Past Surgical History: Appendectomy, Orthopedic Surgery Additional Past Surgical History / Comment(s): vasectomy, left big toe amputated,right foot surgery Past Anesthesia/Blood Transfusion Reactions: No Reported Reaction Past Psychological History: No Psychological Hx Reported Smoking Status: Never smoker Past Alcohol Use History: None Reported Past Drug Use History: None Reported - Past Family History Brother(s) Additional Family Medical History / Comment(s): anxiety Father Family Medical History: COPD, Deep Vein Thrombosis (DVT), Hyperlipidemia, Hypertension Additional Family Medical History / Comment(s): PAD, PART OF LEG AMP Mother Family Medical History: Cancer, COPD, CVA/TIA, Diabetes Mellitus, Hypertension Additional Family Medical History / Comment(s): bip olar,anxiety,depression,smoking Medications and Allergies Home Medications Medication Instructions Recorded Confirmed Type Multivitamin [Multivitamins] 1 tab PO DAILY 12/19/13 12/21/20 History Pravastatin Sodium [Pravachol] 10 mg PO HS 08/03/17 12/21/20 History Dulaglutide [Trulicity] 0.75 mg SQ HARRELL 11/01/18 12/21/20 History Ertugliflozin Pidolate [Steglatro] 5 mg PO DAILY 11/01/18 12/21/20 History Metoprolol Tartrate [Lopressor] 25 mg PO BID 12/21/20 12/21/20 History Sulfamethoxazole/Trimethoprim 1 tab PO BID 12/21/20 12/21/20 History [Bactrim DS 800-160 mg] lisinopriL 40 mg PO HS 12/21/20 12/21/20 History Allergies Allergy/AdvReac Type Severity Reaction Status Date / Time amlodipine [From Norvasc] Allergy Intermediate Rash/Hives Verified 12/21/20 12:25 amoxicillin trihydrate Allergy Rash/Hives Verified 12/21/20 12:25 [From Augmentin] ciprofloxacin [From Cipro] Allergy Unknown Verified 12/21/20 12:25 ciprofloxacin HCl Allergy Unknown Verified 12/21/20 12:25 [From Cipro] cyclobenzaprine HCl Allergy Rash/Hives Verified 12/21/20 12:25 [From Flexeril] potassium clavulanate Allergy Rash/Hives Verified 12/21/20 12:25 [From Augmentin] Surgical - Exam Vital Signs Temp Pulse Resp BP Pulse Ox 99.7 F H 110 H 18 118/71 97 12/21/20 10:00 12/21/20 10:00 12/21/20 10:00 12/21/20 10:00 12/21/20 10:00 Results - Labs 12/21/20 10:29 12/21/20 10:29 Abnormal Lab Results - Last 24 Hours (Table) 12/21/20 12/21/20 12/21/20 Range/Units 10:29 10:29 16:37 WBC 10.9 H (3.8-10.6) k/uL Neutrophils # 9.0 H (1.3-7.7) k/uL Lymphocytes # 0.7 L (1.0-4.8) k/uL Sodium 133 L (137-145) mmol/L Glucose 261 H (74-99) mg/dL POC Glucose (mg/dL) 186 H (75-99) mg/dL Albumin 3.3 L (3.5-5.0) g/dL 12/22/20 Range/Units 06:50 WBC (3.8-10.6) k/uL Neutrophils # (1.3-7.7) k/uL Lymphocytes # (1.0-4.8) k/uL Sodium (137-145) mmol/L Glucose (74-99) mg/dL POC Glucose (mg/dL) 247 H (75-99) mg/dL Albumin (3.5-5.0) g/dL Microbiology - Last 24 Hours (Table) 12/21/20 10:29 Blood Culture Gram Stain - Preliminary Blood 12/21/20 10:29 Blood Culture Gram Stain - Preliminary Blood 12/21/20 10:29 Blood Culture - Final Blood 12/21/20 10:29 Blood Culture - Final Blood Diabetes panel 12/21/20 Range/Units 10:29 Sodium 133 L (137-145) mmol/L Potassium 4.9 (3.5-5.1) mmol/L Chloride 101 (98-107) mmol/L Carbon Dioxide 22 (22-30) mmol/L BUN 12 (9-20) mg/dL Creatinine 0.79 (0.66-1.25) mg/dL Glucose 261 H (74-99) mg/dL Calcium 9.4 (8.4-10.2) mg/dL AST 37 (17-59) U/L ALT 40 (4-49) U/L Alkaline Phosphatase 109 (38-126) U/L Total Protein 6.3 (6.3-8.2) g/dL Albumin 3.3 L (3.5-5.0) g/dL Calcium panel 12/21/20 Range/Units 10:29 Calcium 9.4 (8.4-10.2) mg/dL Albumin 3.3 L (3.5-5.0) g/dL Pituitary panel 12/21/20 Range/Units 10:29 Sodium 133 L (137-145) mmol/L Potassium 4.9 (3.5-5.1) mmol/L Chloride 101 (98-107) mmol/L Carbon Dioxide 22 (22-30) mmol/L BUN 12 (9-20) mg/dL Creatinine 0.79 (0.66-1.25) mg/dL Glucose 261 H (74-99) mg/dL Calcium 9.4 (8.4-10.2) mg/dL Adrenal panel 12/21/20 Range/Units 10:29 Sodium 133 L (137-145) mmol/L Potassium 4.9 (3.5-5.1) mmol/L Chloride 101 (98-107) mmol/L Carbon Dioxide 22 (22-30) mmol/L BUN 12 (9-20) mg/dL Creatinine 0.79 (0.66-1.25) mg/dL Glucose 261 H (74-99) mg/dL Calcium 9.4 (8.4-10.2) mg/dL Total Bilirubin 1.0 (0.2-1.3) mg/dL AST 37 (17-59) U/L ALT 40 (4-49) U/L Alkaline Phosphatase 109 (38-126) U/L Total Protein 6.3 (6.3-8.2) g/dL Albumin 3.3 L (3.5-5.0) g/dL
--- NOTE | 2020-12-22 10:17 | P.PN ---
Subjective 45-year-old male came in with infection of the right foot has a plantar ulcer ulcer in the metatarsal area with significant swelling of the right foot with redness and localized of temperature and patient is a being admitted for cellulitis wound infection was started on cefepime and vancomycin. Patient has short course joint for which patient underwent corrective surgery and has a metal screws extending from the first metatarsal joint of the talus bone. 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 Patient does have history of diabetes with us. With recent hemoglobin A1c between 5 and 6 has low- grade temperature patient is complaining of moderate pain. 12/22/2020 Patient has another ulcer in the left foot site of amputation of the great toe. Patient will undergo debridement of both ulcers. Constitutional: Denied any fatigue denied any fever. Cardio vascular: denied any chest pain, palpitations Gastrointestinal denied any nausea vomiting Pulmonary: Denied any shortness of breath cough Neurologic denied any new focal deficits All inpatient medications were reviewed and appropriate changes in these medications as dictated in the interval history and assessment and plan. Objective - Vital Signs Vital signs: Vital Signs Temp 100.0 F H 12/22/20 07:00 Pulse 100 12/22/20 07:00 Resp 16 12/22/20 07:00 BP 119/62 12/22/20 07:00 Pulse Ox 96 12/22/20 07:18 Intake & Output 12/21/20 12/22/20 12/22/20 18:59 06:59 18:59 Intake Total 900 Balance 900 Weight 119.748 kg Intake: Intake, IV Titration 600 Amount Cefepime 2 gm In Sodium 100 Chloride 0.9% 100 ml @ 25 mls/hr IVPB Q8HR [facility] Rx# :[id number] Vancomycin 1,750 mg In 500 Sodium Chloride 0.9% 500 ml 500 ml @ 167 mls/hr IVPB Q8H RSOIO Rx#: [id number] Oral 300 Other: # Voids 1 1 - Exam PHYSICAL EXAMINATION: GENERAL: The patient is alert and oriented x3, not in any acute distress. Well developed, well nourished. HEENT: Pupils are round and equally reacting to light. EOMI. No scleral icterus. No conjunctival pallor. Normocephalic, atraumatic. No pharyngeal erythema. No thyromegaly. CARDIOVASCULAR: S1 and S2 present. No murmurs, rubs, or gallops. PULMONARY: Chest is clear to auscultation, no wheezing or crackles. ABDOMEN: Soft, nontender, nondistended, normoactive bowel sounds. No palpable organomegaly. MUSCULOSKELETAL: Right foot as mentioned below EXTREMITIES: No cyanosis, clubbing, or pedal edema. NEUROLOGICAL: Gross neurological examination did not reveal any focal deficits. SKIN: Right foot is significantly swollen with a Plantar ulcer appears to be around stage III ulcer patient had a corrective surgery Scar for her Charcot's and patient does have deformity consistent with charcot's - Labs CBC & Chem 7: 12/21/20 10:12/21/20 10: Labs: Abnormal Lab Results - Last 24 Hours (Table) 12/21/20 12/21/20 12/21/20 Range/Units 10: 10: 16:37 WBC 10.9 H (3.8-10.6) k/uL Neutrophils # 9.0 H (1.3-7.7) k/uL Lymphocytes # 0.7 L (1.0-4.8) k/uL Sodium 133 L (137-145) mmol/L Glucose 261 H (74-99) mg/dL POC Glucose (mg/dL) 186 H (75-99) mg/dL Albumin 3.3 L (3.5-5.0) g/dL 12/22/20 Range/Units 06:50 WBC (3.8-10.6) k/uL Neutrophils # (1.3-7.7) k/uL Lymphocytes # (1.0-4.8) k/uL Sodium (137-145) mmol/L Glucose (74-99) mg/dL POC Glucose (mg/dL) 247 H (75-99) mg/dL Albumin (3.5-5.0) g/dL Microbiology - Last 24 Hours (Table) 12/21/20 10:29 Blood Culture Gram Stain - Preliminary Blood 12/21/20 10:29 Blood Culture Gram Stain - Preliminary Blood 12/21/20 10:29 Blood Culture - Final Blood 12/21/20 10: Blood Culture - Final Blood Assessment and Plan Plan: -Foot infection, severe neuropathy and an infected ulcer with cellulitis.: Patient will be continued on the cefepime and vancomycin infectious disease was consulted as to surgery was consulted. -Charcot's foot and neuropathy -Type 2 diabetes mellitus: Well controlled blood sugars at home patient will be resumed on home regimen along with sliding scale next and-hyperlipidemia -Hypertension -Sleep apnea continue CPAP machine DVT prophylaxis with Lovenox
[2020-12-22] MEDS ORDERED: LIDOCAINE 1% INJ 10MG/ML (20 ML MDV) ONE ×2 (11:18→14:17)
[2020-12-22] MEDS ORDERED: PROPOFOL 10 MG/ML 20 ML VIAL IV ONE ×2 (11:18→14:17)
[2020-12-22] MEDS ORDERED: MIDAZOLAM 2 MG/2 ML VIAL ONE ×2 (11:18→14:17)
[2020-12-22] MEDS ORDERED: fentaNYL (PF) 50 MCG/ML 2 ML AMP ONE ×2 (11:18→14:17)
[2020-12-22] MEDS: SODIUM CHLORIDE 0.9% 1,000 ML IV SCH ×3 (11:21→23:26)
[2020-12-22 11:33] LABS: Glucose,Whole Blood 209 mg/dL (75-99)
[2020-12-22] MEDS: INSULIN ASPART (NovoLOG) 100 UNIT/ML VIAL SQ SCH ×3 (12:24→22:11)
[2020-12-22 13:25] VITALS: BMI 35.8
[2020-12-22] MEDS: LACTATED RINGERS 1,000 ML IV ONE ×2 (14:17→15:30)
[2020-12-22] MEDS ORDERED: IV FLUID CONTINUATION 1,000 ML IV ONE (15:03)
[2020-12-22 15:16] LABS: Glucose,Whole Blood 189 mg/dL (75-99)
[2020-12-22 16:40] LABS: Glucose,Whole Blood 221 mg/dL (75-99)
[2020-12-22] MEDS: ACETAMINOPHEN TAB 325 MG TAB PO PRN ×2 (16:48→19:41)
--- NOTE | 2020-12-22 17:48 | PCN ---
PROCEDURE NOTE PREOP DIAGNOSIS: Chronic wound right foot plantar aspect, wound measurement is 2 x 2 cm. The patient has a Charcot foot and there is redness and fluctuation noted on the dorsum plantar aspect of the foot and lateral aspect of the foot suggestive of abscess. Left foot plantar aspect the patient has a chronic wound 3 x 2 cm with some devitalized tissue and some drainage of pus. POSTOP DIAGNOSIS: Chronic wound right foot plantar aspect, wound measurement is 2 x 2 cm. PROCEDURE PERFORMED: Debridement of the right foot plantar aspect wound with deep culture sent for culture and sensitivity and debridement of the left foot plantar aspect wound debridement. Tissue was sent for culture. DESCRIPTION OF PROCEDURE: Right foot incision was made about the 2 cm on the lateral aspect of the foot, deepened through skin fat and fascia. There was an excessive amount of pus was drained. Then another incision was made on the mid plantar aspect of the foot 2 cm and drainage of pus with some devitalized tissue and then we made another incision at the medial aspect of the ankle 3 cm and drainage of excessive pus. Culture was taken, sent for culture and sensitivity. The wound was irrigated with hydrogen peroxide and saline. We placed extra silver rope to the incision site and plantar and dorsum aspect of the foot. Dressing was applied. Plan is we will bring the patient back for second look operation and change of dressing. Prognosis is guarded. The patient was transferred to the recovery room in satisfactory condition. Dressing was applied to the both feet. SELMA / CLIFTONN: [id number] /
[2020-12-22] MEDS: PRAVASTATIN SODIUM 20 MG TAB PO SCH (19:41)
[2020-12-22] MEDS: lisinopriL 20 MG TAB PO SCH (19:43)
[2020-12-22 20:36] LABS: Glucose,Whole Blood 230 mg/dL (75-99)
--- NOTE | 2020-12-22 21:21 | PN ---
PROGRESS NOTE DATE OF SERVICE: 12/22/2020 REASON FOR FOLLOWUP: Right diabetic foot infection with bacteremia. INTERVAL HISTORY: Patient's clinical course complicated as the patient did have positive blood cultures with Gram-positive cocci. The patient did have low grade fever this morning, afebrile since then. The patient denies having any chest pain or shortness of breath or cough. No abdominal pain. Pain and discomfort to the right foot has slightly decreased in intensity. EXAMINATION: Blood pressure 108/72 with a pulse of 105, temperature 98.6 he is 97% on room air. General description is a middle-aged male lying in bed in no distress. Respiratory system: Unlabored breathing, clear to auscultation anteriorly. Heart S1, S2. Regular rate and rhythm. Abdomen soft, no tenderness. Right foot is currently dressed. Right foot Swelling and red and has slightly decreased. Minimal drainage. LABS: Blood culture with Gram-positive cocci. DIAGNOSTIC IMPRESSION AND PLAN: Patient with right diabetic foot infection with underlying abscess, cellulitis and Charcot deformity. The patient did have positive blood cultures. Blood cultures will be repeated to document clearance of his bacteremia. Patient is covered with vancomycin and cefepime to continue, adjusting further based on the culture report. Prognosis is guarded. MMODL / IJN: [id number] /
[2020-12-23] MEDS: VANCOMYCIN 1,750 MG in SODIUM CHLORIDE 0.9% 500 ML 500 ML IVPB SCH ×2 (05:22→13:55)
[2020-12-23] MEDS: ACETAMINOPHEN TAB 325 MG TAB PO PRN ×3 (05:31→19:53)
[2020-12-23] MEDS: INSULIN ASPART (NovoLOG) 100 UNIT/ML VIAL SQ SCH ×4 (06:57→21:47)
[2020-12-23] MEDS: METOPROLOL TARTRATE 25 MG TAB PO SCH ×2 (06:58→19:53)
[2020-12-23 07:06] LABS: Glucose,Whole Blood 209 mg/dL (75-99)
[2020-12-23] MEDS: CEFEPIME 2 GM in SODIUM CHLORIDE 0.9% 100 ML IVPB SCH (08:49)
[2020-12-23] MEDS: SODIUM CHLORIDE 0.9% 1,000 ML IV SCH ×3 (08:52→23:26)
[2020-12-23] MEDS: ERTUGLIFLOZIN PIDOLATE 5 MG PO SCH (08:52)
[2020-12-23 10:01] LABS: African American GFR (CKD) 139.7 (60.0-200.0); Anion Gap 7.8 mmol/L (4.00-12.00); BUN/Creat Ratio 18.33 Ratio (12.00-20.00); C Reactive Protein 29.3 mg/dL (0.0-0.8); Calcium 7.5 mg/dL (8.7-10.3); Carbon Dioxide 22.2 mmol/L (21.6-31.8); Non-African American GFR(CKD) 120.6 (60.0-200.0); Potassium 4.4 mmol/L (3.5-5.5)
[2020-12-23 10:51] LABS: Glucose,Whole Blood 158 mg/dL (75-99)
[2020-12-23] MEDS ORDERED: LACTATED RINGERS 1,000 ML IV ONE (11:18)
[2020-12-23] MEDS ORDERED: VANCOMYCIN TROUGH DUE 1 EACH MISC MISCELLANE ONE (12:00)
[2020-12-23 12:01] LABS: Glucose,Whole Blood 167 mg/dL (75-99)
--- NOTE | 2020-12-23 12:36 | P.PN ---
Subjective 45-year-old male came in with infection of the right foot has a plantar ulcer ulcer in the metatarsal area with significant swelling of the right foot with redness and localized of temperature and patient is a being admitted for cellulitis wound infection was started on cefepime and vancomycin. Patient has short course joint for which patient underwent corrective surgery and has a metal screws extending from the first metatarsal joint of the talus bone. 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 Patient does have history of diabetes with us. With recent hemoglobin A1c between 5 and 6 has low- grade temperature patient is complaining of moderate pain. 12/22/2020 Patient has another ulcer in the left foot site of amputation of the great toe. Patient will undergo debridement of both ulcers. 12/23/2020 Patient has MRSA in the wounds and patient is undergoing debridement today. Her bit higher but will use sliding scale probably can be started on long-acting insulin. Constitutional: Denied any fatigue denied any fever. Cardio vascular: denied any chest pain, palpitations Gastrointestinal denied any nausea vomiting Pulmonary: Denied any shortness of breath cough Neurologic denied any new focal deficits All inpatient medications were reviewed and appropriate changes in these medications as dictated in the interval history and assessment and plan. Objective - Vital Signs Vital signs: Vital Signs Temp 97.0 F L 12/23/20 11:55 Pulse 82 12/23/20 12:27 Resp 16 12/23/20 12:27 BP 132/74 12/23/20 12:27 Pulse Ox 97 12/23/20 12:27 Intake & Output 12/22/20 12/23/20 12/23/20 18:59 06:59 18:59 Intake Total 300 1960 250 Output Total 100 10 Balance 200 1960 240 Weight 119.748 kg Intake: IV 300 250 Intake, IV Titration 1660 Amount Cefepime 2 gm In Sodium 100 Chloride 0.9% 100 ml @ 25 mls/hr IVPB Q8HR [facility] Rx# :[id number] Sodium Chloride 0.9% 1, 1560 000 ml @ 130 mls/hr IV . Q7H42M [facility] Rx#:[id number] Oral 300 Output: Estimated Blood Loss 100 10 Other: # Voids 3 1 - Exam PHYSICAL EXAMINATION: GENERAL: The patient is alert and oriented x3, not in any acute distress. Well developed, well nourished. HEENT: Pupils are round and equally reacting to light. EOMI. No scleral icterus. No conjunctival pallor. Normocephalic, atraumatic. No pharyngeal erythema. No thyromegaly. CARDIOVASCULAR: S1 and S2 present. No murmurs, rubs, or gallops. PULMONARY: Chest is clear to auscultation, no wheezing or crackles. ABDOMEN: Soft, nontender, nondistended, normoactive bowel sounds. No palpable organomegaly. MUSCULOSKELETAL: Right foot as mentioned below EXTREMITIES: No cyanosis, clubbing, or pedal edema. NEUROLOGICAL: Gross neurological examination did not reveal any focal deficits. SKIN: Right foot is significantly swollen with a Plantar ulcer appears to be around stage III ulcer patient had a corrective surgery Scar for her Charcot's and patient does have deformity consistent with charcot's - Labs CBC & Chem 7: 12/21/20 10:29 12/23/20 05:42 Labs: Abnormal Lab Results - Last 24 Hours (Table) 12/22/20 12/22/20 12/22/20 Range/Units 15:13 16:29 20:35 Glucose (70-110) mg/dL POC Glucose (mg/dL) 189 H 221 H 230 H (75-99) mg/dL Calcium (8.7-10.3) mg/dL C-Reactive Protein (0.0-0.8) mg/dL 12/23/20 12/23/20 12/23/20 Range/Units 05:42 06:48 10:49 Glucose 211 H (70-110) mg/dL POC Glucose (mg/dL) 209 H 158 H (75-99) mg/dL Calcium 7.5 L (8.7-10.3) mg/dL C-Reactive Protein 29.3 H (0.0-0.8) mg/dL 12/23/20 Range/Units 12:00 Glucose (70-110) mg/dL POC Glucose (mg/dL) 167 H (75-99) mg/dL Calcium (8.7-10.3) mg/dL C-Reactive Protein (0.0-0.8) mg/dL Microbiology - Last 24 Hours (Table) 12/22/20 15:02 Fungal Culture - Preliminary Foot - Left 12/22/20 15:00 Fungal Culture - Preliminary Foot - Right 12/22/20 15:01 Fungal Culture - Preliminary Foot - Right 12/22/20 15:02 Anaerobic Culture - Preliminary Foot - Left 12/22/20 15:00 Anaerobic Culture - Preliminary Foot - Right 12/22/20 15:02 Tissue Culture - Preliminary Foot - Left 12/22/20 15:00 Wound Culture - Preliminary Foot - Right 12/22/20 15:01 Anaerobic Culture - Preliminary Foot - Right 12/22/20 15:01 Tissue Culture - Preliminary Foot - Right 12/21/20 10:29 Blood Culture Gram Stain - Preliminary Blood Blood Culture - Preliminary Presumptive MRSA 12/21/20 10:29 Blood Culture Gram Stain - Preliminary Blood Blood Culture - Preliminary Staphylococcus aureus Assessment and Plan Plan: -Foot infection, severe neuropathy and an infected ulcer with cellulitis.: Patient will be continued on the cefepime and vancomycin infectious disease as less surgery evaluated the patient patient had the debridement. Patient has MRSA in in the wounds and patient is presently on vancomycin and cefepime -Charcot's foot and neuropathy -Type 2 diabetes mellitus: Well controlled blood sugars at home patient will be resumed on home regimen along with sliding scale -hyperlipidemia -Hypertension -Sleep apnea continue CPAP machine DVT prophylaxis with Lovenox
[2020-12-23 12:39] LABS: Glucose,Whole Blood 146 mg/dL (75-99)
--- NOTE | 2020-12-23 15:29 | PN ---
PROGRESS NOTE DATE OF SERVICE: 12/23/2020 REASON FOR FOLLOWUP: Right foot abscess and gangrene and bacteremia. INTERVAL HISTORY: Patient is currently afebrile. Patient is status post washout of his right foot again today. The patient tolerated the procedure. Pain is currently controlled. The patient denies having any chest pain, shortness of breath or cough. No abdominal pain, no diarrhea. PHYSICAL EXAMINATION: Blood pressure 141/83, pulse of 91, temperature 97. He is 96% on room air. General description is a middle-aged male lying in bed in no distress. Respiratory system: Unlabored breathing, clear to auscultation anteriorly. Heart S1, S2. Regular rate and rhythm. Abdomen soft, no tenderness. Right foot is currently dressed. No obvious drainage on the dressing. LABS: Sed rate is 105, CRP 29.3, creatinine 0.6. Blood culture with presumptive MRSA. DIAGNOSTIC IMPRESSION AND PLAN: Patient with right diabetic foot infection with Charcot deformity, cultures with presumed MRSA. Vancomycin dose needs to be adjusted up to keep the trough around 15. Cefepime will be discontinued. Blood cultures repeated to document clearance of bacteremia and monitor clinical course closely. MMODL / IJN: [id number] /
[2020-12-23 16:32] LABS: Glucose,Whole Blood 206 mg/dL (75-99)
[2020-12-23] MEDS ORDERED: NON FORMULARY DRUG (Dulaglutide [Trulicity] 0.75 MG/0.5 ML Pen.Injctr) SQ SCH (17:15)
--- NOTE | 2020-12-23 19:44 | OP ---
OPERATIVE REPORT PREOPERATIVE DIAGNOSE: Charcot foot with abscess right foot post I&D. PROCEDURE PERFORMED: Exploration of the wound and change of dressing under anesthesia and placement of an Aquacel silver rope. DESCRIPTION OF PROCEDURE: This patient had a Charcot foot with abscess formation involving the whole foot. The patient had an incision made in the medial lateral aspect of the ankle and dorsal aspect of the foot. We brought the patient to the room and the right foot was prepped and drapes applied in the usual sterile manner. Using curette, we did selective debridement of right foot and wound was copiously irrigated with hydrogen peroxide and saline. No more pus was noted. Then we placed an Aquacel silver rope on the medial lateral and dorsal aspect of the foot. The patient still has some swelling, but no discharge was noted at this point, and dressing was applied and the patient tolerated the procedure well. PLAN: We will change the dressing tomorrow. SELMA / BETHANY: [id number] /
[2020-12-23] MEDS: VANCOMYCIN 2,000 MG in SODIUM CHLORIDE 0.9% 500 ML 500 ML IVPB SCH (19:52)
[2020-12-23] MEDS: PRAVASTATIN SODIUM 20 MG TAB PO SCH (19:53)
[2020-12-23] MEDS: lisinopriL 20 MG TAB PO SCH (19:53)
[2020-12-23 21:37] LABS: Glucose,Whole Blood 152 mg/dL (75-99)
[2020-12-24] MEDS: VANCOMYCIN 2,000 MG in SODIUM CHLORIDE 0.9% 500 ML 500 ML IVPB SCH ×3 (05:45→19:38)
[2020-12-24] MEDS: ACETAMINOPHEN TAB 325 MG TAB PO PRN (05:45)
[2020-12-24 07:05] LABS: Glucose,Whole Blood 163 mg/dL (75-99)
[2020-12-24] MEDS: HYDROcodone/APAP 5-325MG 1 EACH TAB PO PRN ×2 (07:15→19:39)
[2020-12-24] MEDS: METOPROLOL TARTRATE 25 MG TAB PO SCH ×2 (07:16→19:39)
[2020-12-24] MEDS: SODIUM CHLORIDE 0.9% 1,000 ML IV SCH ×3 (07:16→22:41)
[2020-12-24] MEDS: INSULIN ASPART (NovoLOG) 100 UNIT/ML VIAL SQ SCH ×4 (07:17→20:59)
[2020-12-24] MEDS: ERTUGLIFLOZIN PIDOLATE 5 MG PO SCH (07:19)
[2020-12-24 11:47] LABS: Glucose,Whole Blood 191 mg/dL (75-99)
--- NOTE | 2020-12-24 13:42 | P.PN ---
Progress Note - Text 45-year-old diabetic male, patient was seen with history of infected right foot plantar dorsum aspect with the sharp good foot deformity patient was taken to the OR we did incision and drainage of the foot pus was drained and patient also has a ulcer on the plantar aspect of the foot which was also debrided patient has a chronic wound on the left foot plantar aspect we did the selective debridement. Patient is under care of infectious disease for IV antibiotic. Today we have changed the dressing patient still has marked swelling of the right foot but no drainage noted we've educated the wound placed in the Aquacel silver rope. Femoral is 1+ PT DP by the Doppler plan is a right leg angiogram continue with local wound care and IV antibiotic
--- NOTE | 2020-12-24 14:28 | CDI ---
Documentation Clarification Form Date: 12/24/2020 02:20:36 PM From: Jaymie Guerra CCS, CCDS Admit Date: 12/21/2020 12:23:00 PM Patient Name: Carlo Clay Visit Number: [id number] Discharge Date: ATTENTION: The Clinical Documentation Specialists (CDI) and [facility] Coding Staff appreciate your assistance in clarifying documentation. Please respond to the clarification below the line at the bottom and electronically sign. The CDI & [facility] Coding staff will review the response and follow-up if needed. Please note: Queries are made part of the Legal Health Record. If you have any questions, please contact the author of this message via ITS. Dr. Richie Gonzalez: A debridement is documented in the 12/22 Procedure Note as: Debridement of the right foot plantar aspect wound with deep culture sent for culture and sensitivity and debridement of the left foot plantar aspect wound debridement. Tissue was sent for culture. Additional clarification regarding the procedure is requested. History/Risk Factors per the 12/21 H/P: IDDM II with diabetic neuropathy & Charcot's foot, Hypertension, Hyperlipidemia, Sleep apnea. Clinical Indicators: Presented to the ED on 12/21 with a right foot infection. Admitted with Right Foot Infection, Wound & Cellulitis. 12/21 VS: T 99.7, P 110, R 18, BP 118/71, PO 97 RA 12/21 LAB: WBC 10.9, Neut 9.0, Lymph 0.7 12/21 Blood Culture: Final: MRSA 12/22 Would Culture (Preliminary): Staph Aureus 12/22 Tissue Culture (Preliminary): MRSA Treatment 12/21: IV Cefepime, IV Vancomycin 12/22 Procedure as described above. 12/23 Procedure: Exploration of the wound & change of dressing under anesthesia. Please clarify the type of procedure performed: [ ] Excisional debridement (the removal of necrotic, devitalized tissue or slough by means of cutting away of tissue) [ ] Non-excisional debridement (the removal of necrotic, devitalized tissue or slough by means of flushing, brushing, or washing. (Irrigation) [ ] Other; please specify [ ] Unable to determine Five elements required for accurate and compliant documentation of a debridement: Technique used (e.g., excisional, excised, cutting, brushing, jet lavage etc.) Instrument(s) used (e.g., scalpel, curette, etc.) Nature of the tissue removed (e.g., necrotic, devitalized tissues, non-viable tissue, etc.) Appearance and size of the wound (e.g., down to fresh bleeding tissue, 7cm x 10cm, etc.) Depth of the debridement* (e.g., skin, subcutaneous tissue, fascia, muscle, bone, etc.) (Template Last Revised: October 2020) MTDD
[2020-12-24 16:37] LABS: Glucose,Whole Blood 185 mg/dL (75-99)
--- NOTE | 2020-12-24 18:17 | PN ---
PROGRESS NOTE DATE OF SERVICE: 12/24/2020 This 45-year-old gentleman who was admitted with severe foot infections had peripheral neuropathy. The patient has infected ulcers and cellulitis. The patient is on IV cefepime and vancomycin. Infectious Disease is following the patient closely. The microbiology showed presumptive MRSA on multiple cultures. No chest pain. No palpitations. No fever. PHYSICAL EXAMINATION: Alert and oriented x3. Pulse 80, blood pressure 123/70, respiration 16, temperature 98.2, pulse ox 96% on room air. HEENT: Conjunctivae normal. NECK: No jugular venous distention. CARDIOVASCULAR SYSTEM: S1, S2 muffled. RESPIRATORY SYSTEM: Breath sounds diminished at the bases. No rhonchi. No crackles. ABDOMEN: Soft, non-tender. LEGS: Bilateral leg ulcers. NERVOUS SYSTEM: No focal deficit. LABS: Accu-Cheks 163. ESR is 105. Glucose noted. ASSESSMENT: 1. Bilateral foot infections, right more than the left, with MRSA, status post debridement. 2. Charcot foot and peripheral neuropathy. 3. Diabetes mellitus, type 2, uncontrolled with hyperglycemia. 4. Hyperlipidemia. 5. Hypertension. 6. Sleep apnea. 7. Increased white count. 8. Lymphopenia. 9. Hypernatremia. 10.Obesity with body mass index of 34.8. 11.FULL CODE. RECOMMENDATIONS AND DISCUSSION: In this 45-year-old gentleman who presented with multiple complex medical issues, we will monitor the patient closely, continue the current medications, continue with vancomycin. Pharmacy to re-dose. Continue the rest of medications. I will cut down the IV fluids. Repeat labs. Guarded prognosis. Further recommendations to follow. MMODL / IJN: [id number] /
[2020-12-24] MEDS: PRAVASTATIN SODIUM 20 MG TAB PO SCH (19:38)
[2020-12-24] MEDS: lisinopriL 20 MG TAB PO SCH (19:39)
[2020-12-24 20:28] LABS: Glucose,Whole Blood 188 mg/dL (75-99)
[2020-12-25] MEDS ORDERED: VANCOMYCIN TROUGH DUE 1 EACH MISC MISCELLANE ONE (04:00)
[2020-12-25] MEDS: ACETAMINOPHEN TAB 325 MG TAB PO PRN (05:40)
[2020-12-25] MEDS: VANCOMYCIN 2,000 MG in SODIUM CHLORIDE 0.9% 500 ML 500 ML IVPB SCH ×3 (05:40→21:43)
[2020-12-25 06:26] LABS: Basophils % (A) 0 %; Eosinophils # (A) 0.1 k/uL (0-0.7); Eosinophils % (A) 2 %; HCT 36.5 % (39.0-53.0); HGB 12.1 gm/dL (13.0-17.5); Lymphocytes # (A) 1.3 k/uL (1.0-4.8); Lymphocytes % (A) 19 %; MCH 28.4 pg (25.0-35.0); MCHC 33.2 g/dL (31.0-37.0); MCV 85.5 fL (80.0-100.0); Mean Platelet Volume 7.7; Monocytes # (A) 0.5 k/uL (0-1.0); Monocytes % (A) 8 %; Neutrophils % (A) 71 %; Platelet Count 413 k/uL (150-450); RBC 4.27 m/uL (4.30-5.90); RDW 13.9 % (11.5-15.5); WBC 7.1 k/uL (3.8-10.6)
[2020-12-25 06:33] LABS: African American GFR (CKD) >90 (>60 ml/min/1.73 sqM); Anion Gap 7 mmol/L; Blood Urea Nitrogen 9 mg/dL (9-20); Calcium 8.6 mg/dL (8.4-10.2); Carbon Dioxide 29 mmol/L (22-30); Chloride 102 mmol/L (98-107); Glucose 155 mg/dL (74-99); Non-African American GFR(CKD) >90 (>60 ml/min/1.73 sqM); Potassium 4.5 mmol/L (3.5-5.1); Sodium 138 mmol/L (137-145)
[2020-12-25 06:57] LABS: Glucose,Whole Blood 185 mg/dL (75-99)
[2020-12-25] MEDS: INSULIN ASPART (NovoLOG) 100 UNIT/ML VIAL SQ SCH ×4 (08:00→21:42)
[2020-12-25] MEDS: MULTIVITAMINS, THERA 1 EACH TAB PO SCH (08:03)
[2020-12-25] MEDS: ERTUGLIFLOZIN PIDOLATE 5 MG PO SCH (08:03)
[2020-12-25] MEDS: METOPROLOL TARTRATE 25 MG TAB PO SCH ×2 (08:03→21:42)
[2020-12-25] MEDS: HYDROcodone/APAP 5-325MG 1 EACH TAB PO PRN ×2 (08:08→17:04)
--- NOTE | 2020-12-25 08:17 | CDI ---
Documentation Clarification Form Date: 12/25/2020 08:04:42 AM From: Jaymie Guerra CCS, CCDS Admit Date: 12/21/2020 12:23:00 PM Patient Name: Carlo Clay Visit Number: [id number] Discharge Date: ATTENTION: The Clinical Documentation Specialists (CDI) and [facility] Coding Staff appreciate your assistance in clarifying documentation. Please respond to the clarification below the line at the bottom and electronically sign. The CDI & [facility] Coding staff will review the response and follow-up if needed. Please note: Queries are made part of the Legal Health Record. If you have any questions, please contact the author of this message via ITS. Dr. Geuro Sun: Conflicting documentation has been found in the medical record. As attending physician, please provide clarification. Per the 12/22 Attending Progress Note Addendum: Patient continues to have fever and sepsis Per the 12/24 Attending Progress Note: Bilateral foot infections, right more than the left, with MRSA, status post debridement. (Sepsis is not documented) History/Risk Factors per the 12/21 H/P: IDDM II with peripheral neuropathy & Charcot foot, Hypertension, Obesity, BMI 34.8, Hyperlipidemia & Sleep Apnea. Clinical Indicators: Presented to the ED on 12/21 with a right foot infection, has been on Bactrim. Foot is swollen, red & painful, denies fevers but taking Ibuprofen. 12/21 VS: T 99.7, P 110, R 18, BP 118/71, PO 97 RA 12/21 LAB: WBC 10.9, Neutrophils 9.0, Lymphocytes 0.7, Lactic Acid 1.7. Cultures: 12/21 Blood Cx x2 neg (final). x1 MRSA (final). 12/22 Would Cx: Presumptive Staph aureus (Preliminary), Anaerobic Cx x3 (Preliminary), Fungal Cx x3 (Preliminary), Tissue Cx x2 Presumptive MRSA (Preliminary) 12/23 Blood Cx No Growth @ 24 hrs (Preliminary) Treatment 12/21: po Tylenol, IV Cefepime, IV Vancomycin, IV fluid 500 mls @ 1,000 mls/hr Please clarify which diagnosis is most appropriate: [ ] Sepsis, Present on Admission, please specify cause & organism: [ ] Sepsis, Not Present on Admission, please specify cause & organism: [ ] Sepsis, ruled out [ ] Other (please specify) [ ] Unable to determine (Template Last Revised: October 2020) not my documentation MTDD
[2020-12-25 11:19] LABS: Glucose,Whole Blood 172 mg/dL (75-99)
--- NOTE | 2020-12-25 13:25 | PN ---
PROGRESS NOTE DATE OF SERVICE: 12/25/2020 REASON FOR FOLLOW UP: Right diabetic foot infection with underlying osteomyelitis. INTERVAL HISTORY: The patient is currently afebrile. He did have a low-grade fever of 100.1 last night. The patient denies having any chest pain, shortness of breath or cough. No nausea, vomiting, abdominal pain, or any worsening pain to the bilateral foot wound area. PHYSICAL EXAMINATION: Blood pressure 145/70 with a pulse of 72, temperature 98.6. He is 94% on room air. GENERAL DESCRIPTION: A middle-aged male lying in bed in no distress. RESPIRATORY SYSTEM: Unlabored breathing, clear to auscultation anteriorly. HEART: S1, S2. Regular rate and rhythm. ABDOMEN: Soft, no tenderness. EXTREMITIES: Bilateral feet are dressed. No significant drainage on the dressing. LABS: Hemoglobin is 12.9, white count 7.1. BUN of 9, creatinine 0.68. Vancomycin trough was 12.3. Blood culture 12/23/2020 has been negative so far. DIAGNOSTIC IMPRESSION AND PLAN: Patient with MRSA bacteremia secondary to bilateral diabetic foot infection, more so on the right side with multiple abscesses drained and concern for deep infection. Patient is covered with vancomycin. Dose needs to be adjusted up to keep trough around 15. He can be able to get his PICC line tomorrow for outpatient IV antibiotic therapy. Discharge when cleared by Surgery. Continue supportive care. Thank you. SELMA / BETHANY: [id number] /
[2020-12-25] MEDS: MIDAZOLAM 2 MG/2 ML VIAL IVP ONE ×2 (14:30→14:35)
[2020-12-25] MEDS ORDERED: LIDOCAINE 1% INJ 10MG/ML (20 ML MDV) SQ ONE (14:30)
[2020-12-25] MEDS ORDERED: IV FLUID CONTINUATION 800 ML IV ONE (14:30)
[2020-12-25] MEDS ORDERED: VANCOMYCIN IV PER PHARMACY 1 EACH MISC MISCELLANE PRN (15:21)
[2020-12-25] MEDS ORDERED: FUROSEMIDE 10 MG/ML 2 ML VIAL IV STA (15:22)
[2020-12-25 15:28] LABS: Glucose,Whole Blood 157 mg/dL (75-99)
--- NOTE | 2020-12-25 15:45 | IR ---
Fluoroscopy HISTORY: Pain in right heel 1.4 minutes fluoroscopy time supplied to the referring clinician. 362 intraoperative C-arm images do cument the procedure. See dictated report from vascular surgery.
[2020-12-25 17:08] LABS: Glucose,Whole Blood 159 mg/dL (75-99)
--- NOTE | 2020-12-25 17:25 | PN ---
PROGRESS NOTE DATE OF SERVICE: 12/25/2020 This 45-year-old gentleman admitted with abnormal foot infection had multiple cultures positive for MRSA. The most recent blood cultures have been negative at this time. The last blood culture positive was on 12/21/2020. Past medical history reviewed. REVIEW OF SYSTEMS: CARDIOVASCULAR SYSTEM: No angina, palpitations. RESPIRATORY SYSTEM: As mentioned earlier. GI: As mentioned earlier. : No dysuria or retention. NERVOUS SYSTEM: No numbness, weakness. CURRENT MEDICATIONS: Reviewed. They include Tylenol, [place], NovoLog, Lopressor, simvastatin, vancomycin. PHYSICAL EXAMINATION: Patient is alert and oriented x3. Pulse 73, blood pressure 143/84, respiration 18, temperature 98.4, T-max 100.1, pulse ox 99% on room air. HEENT: Conjunctivae normal. NECK: No jugular venous distention. CARDIOVASCULAR SYSTEM: S1, S2 muffled. RESPIRATORY SYSTEM: Breath sounds diminished at the bases. No rhonchi. No crackles. ABDOMEN: Soft, non-tender. LEGS: Bilateral foot infection, bandaged. NERVOUS SYSTEM: No focal deficit. LABS: WBC 7.2, hemoglobin 12.1. Glucose noted. COVID-19 is negative. ASSESSMENT: 1. Bilateral foot infection, right more than the left, with MRSA, status post debridement. 2. Charcot foot and peripheral neuropathy. 3. Diabetes mellitus, type 2, uncontrolled with hyperglycemia. 4. Hyperlipidemia. 5. Hypertension. 6. History of sleep apnea. 7. Increased white count. 8. Lymphopenia. 9. Hyponatremia. 10.Obesity with body mass index of 34.8. 11.FULL CODE. RECOMMENDATIONS AND DISCUSSION: I recommend to continue current medications, continue with the monitoring, symptomatic treatment. I would also recommend stopping the IV fluids. Dose of Lasix. Monitor CBC, BMP. Pharmacy to monitor the vancomycin level. Further recommendations to follow. MMODL / IJN: [id number] /
[2020-12-25 21:33] LABS: Glucose,Whole Blood 180 mg/dL (75-99)
[2020-12-25] MEDS: lisinopriL 20 MG TAB PO SCH (21:42)
--- NOTE | 2020-12-25 21:50 | OP ---
OPERATIVE REPORT PREOPERATIVE DIAGNOSIS: Charcot foot, chronic wound, right foot. PROCEDURE: Right leg angiogram. PROCEDURE DESCRIPTION: This patient was brought to the labourers. Right groin was prepped and draped in the usual sterile manner. Lidocaine 1% was infiltrated with IV sedation. Ultrasound-guided micropuncture was introduced into the right common femoral artery. Micropuncture guidewire was passed and 4-Maltese dilator was advanced up the guidewire. With hand injection, right leg angiogram was performed. Right iliac was found to be patent. Common femoral artery and profunda were found to be patent. Right SFA was visualized. Popliteal artery was visualized and patient had 3-vessel runoff below the knee. His catheter was removed. Pressure was held. Patient tolerated the procedure well. MMODL / IJN: [id number] /
[2020-12-25] MEDS: PRAVASTATIN SODIUM 20 MG TAB PO SCH (22:23)
[2020-12-26] MEDS: VANCOMYCIN 2,000 MG in SODIUM CHLORIDE 0.9% 500 ML 500 ML IVPB SCH (05:24)
[2020-12-26 06:46] LABS: Basophils % (A) 0 %; Eosinophils # (A) 0.1 k/uL (0-0.7); Eosinophils % (A) 2 %; HCT 34.2 % (39.0-53.0); HGB 11.5 gm/dL (13.0-17.5); Lymphocytes # (A) 0.9 k/uL (1.0-4.8); Lymphocytes % (A) 15 %; MCH 28.8 pg (25.0-35.0); MCHC 33.5 g/dL (31.0-37.0); Mean Platelet Volume 7.2; Monocytes # (A) 0.5 k/uL (0-1.0); Monocytes % (A) 9 %; Neutrophils # (A) 4.4 k/uL (1.3-7.7); Neutrophils % (A) 73 %; Platelet Count 348 k/uL (150-450); RBC 3.98 m/uL (4.30-5.90); RDW 14.1 % (11.5-15.5)
[2020-12-26 07:28] LABS: African American GFR (CKD) >90 (>60 ml/min/1.73 sqM); Anion Gap 6 mmol/L; Blood Urea Nitrogen 10 mg/dL (9-20); Calcium 8.4 mg/dL (8.4-10.2); Carbon Dioxide 28 mmol/L (22-30); Chloride 103 mmol/L (98-107); Glucose 153 mg/dL (74-99); Non-African American GFR(CKD) >90 (>60 ml/min/1.73 sqM); Potassium 4.4 mmol/L (3.5-5.1); Sodium 137 mmol/L (137-145)
[2020-12-26 07:49] LABS: Glucose,Whole Blood 161 mg/dL (75-99)
[2020-12-26] MEDS: INSULIN ASPART (NovoLOG) 100 UNIT/ML VIAL SQ SCH ×2 (08:01→12:59)
[2020-12-26] MEDS: METOPROLOL TARTRATE 25 MG TAB PO SCH (08:02)
[2020-12-26] MEDS: ERTUGLIFLOZIN PIDOLATE 5 MG PO SCH (08:02)
[2020-12-26] MEDS: MULTIVITAMINS, THERA 1 EACH TAB PO SCH (08:02)
--- NOTE | 2020-12-26 09:02 | CDI ---
Documentation Clarification Form Date: 12/25/2020 08:04:00 AM From: Jaymie Guerra CCS, CCDS Admit Date: 12/21/2020 12:23:00 PM Patient Name: Carlo Clay Visit Number: [id number] Discharge Date: ATTENTION: The Clinical Documentation Specialists (CDI) and [facility] Coding Staff appreciate your assistance in clarifying documentation. Please respond to the clarification below the line at the bottom and electronically sign. The CDI & [facility] Coding staff will review the response and follow-up if needed. Please note: Queries are made part of the Legal Health Record. If you have any questions, please contact the author of this message via ITS. Dr. Guero Sun: Thank you for responding to this query. As the current physician of record, do you agree with the previously documented diagnosis of Sepsis found in Dr. Riddle Progress Note of 12/22. Conflicting documentation has been found in the medical record. As attending physician, please provide clarification. Per the 12/22 Attending Progress Note Addendum: Patient continues to have fever and sepsis Per the 12/24 Attending Progress Note: Bilateral foot infections, right more than the left, with MRSA, status post debridement. (Sepsis is not documented) History/Risk Factors per the 12/21 H/P: IDDM II with peripheral neuropathy & Charcot foot, Hypertension, Obesity, BMI 34.8, Hyperlipidemia & Sleep Apnea. Clinical Indicators: Presented to the ED on 12/21 with a right foot infection, has been on Bactrim. Foot is swollen, red & painful, denies fevers but taking Ibuprofen. 12/21 VS: T 99.7, P 110, R 18, BP 118/71, PO 97 RA 12/21 LAB: WBC 10.9, Neutrophils 9.0, Lymphocytes 0.7, Lactic Acid 1.7. Cultures: 12/21 Blood Cx x2 neg (final). x1 MRSA (final). 12/22 Would Cx: Presumptive Staph aureus (Preliminary), Anaerobic Cx x3 (Preliminary), Fungal Cx x3 (Preliminary), Tissue Cx x2 Presumptive MRSA (Preliminary) 12/23 Blood Cx No Growth @ 24 hrs (Preliminary) Treatment 12/21: po Tylenol, IV Cefepime, IV Vancomycin, IV fluid 500 mls @ 1,000 mls/hr Please clarify which diagnosis is most appropriate: [ ] Sepsis, Present on Admission, please specify cause & organism: [ ] Sepsis, Not Present on Admission, please specify cause & organism: [ ] Sepsis, ruled out [ ] Other (please specify) [ ] Unable to determine (Template Last Revised: October 2020) Sepsis, Present on Admission mrsa MTDD
[2020-12-26] MEDS ORDERED: LIDOCAINE 1% INJ 10MG/ML (20 ML MDV) ONE (10:57)
[2020-12-26] MEDS ORDERED: LIDOCAINE 1% INJ 10MG/ML (20 ML MDV) SQ ONE (11:05)
[2020-12-26 12:10] LABS: Glucose,Whole Blood 210 mg/dL (75-99)
--- NOTE | 2020-12-26 12:49 | PN ---
PROGRESS NOTE DATE OF SERVICE: 12/26/2020 REASON FOR FOLLOWUP: Bilateral diabetic foot infection, right greater than left. INTERVAL HISTORY: Patient is currently afebrile. The patient is breathing comfortably. No chest pain, shortness of breath or cough. No nausea. No vomiting. No abdominal pain or any worsening pain to the bilateral feet area. PHYSICAL EXAMINATION: Blood pressure 147/90 with a pulse of 80, temperature 98.1. He is 96% on room air. General description: The patient is a middle-aged male lying in bed in no distress. Respiratory system: Unlabored breathing, clear to auscultation anteriorly. Heart S1, S2. Regular rate and rhythm. Abdomen is soft, no tenderness. Bilateral feet current dressed up. No obvious drainage on the dressing. LABS: Hemoglobin 11.5, white count 6.0, BUN of 10, creatinine 0.64. Blood culture repeat has been negative. DIAGNOSTIC IMPRESSION AND PLAN: Patient with bilateral diabetic foot infection, more on the right side than the left. The patient culture has been positive MRSA. Blood culture repeat has been negative. Plan is for vancomycin, pharmacy to dose target of 15 for a total of 6 weeks. [facility] up [facility]. Questions and concerns were answered. MMODL / IJN: [id number] /
[2020-12-26 14:37] VITALS: BP 150/86; PULSE 81; RESP 17; TEMP 98.9
--- NOTE | 2020-12-26 16:09 | IR ---
PICC LINE PLACEMENT: HISTORY: Infection requiring long-term antibiotic therapy PROCEDURE: Ultrasound and fluoroscopic guidance of PICC line placement. COMPLICATIONS: None ANESTHESIA: 1. 1% Lidocaine locally. FINDINGS/TECHNIQUE: The procedure was explained to the patient. The risks, complications, benefits and alternatives were discussed and any questions were answered. Informed consent was obtained. The patient was placed supine on the fluoroscopic table and prepped and draped in the usual sterile fash ion. Utilizing a 21 gauge needle and sonographic and fluoroscopic guidance, access in the left basi lic vein was achieved and there is placement of a 0.018 guidewire. The vein is patent. A 4-F sheath was placed over the guidewire. The guidewire and dilator were removed and a 4-F. PICC line was plac ed through the sheath with the tip at the level of the SVC. The sheath was removed, the catheter was flushed and sutured into position. The patient was stable throughout the procedure and remained sta ble upon discharge from the Department of Radiology. The vein puncture was patent under ultrasound. A dupree scale image was obtained to document patency of the vein punctured. All elements of the maximal barrier technique were utilized. FLUOROSCOPY TIME: 0.1 minutes and one image submitted IMPRESSION: Successful PICC line placement under ultrasound and fluoroscopic guidance.
[2020-12-26] MEDS ORDERED: VANCOMYCIN TROUGH DUE 1 EACH MISC MISCELLANE ONE (20:30)
--- NOTE | 2020-12-26 22:56 | DS ---
DISCHARGE SUMMARY DATE OF SERVICE: 12/26/2020 FINAL DIAGNOSES: 1. Bilateral foot infection, right more than the left, with methicillin-resistant Staphylococcus aeruginosa, status post debridement. 2. Charcot foot and peripheral neuropathy. 3. Diabetes mellitus, type 2, uncontrolled with hyperglycemia. 4. Hyperlipidemia. 5. Hypertension. 6. History of sleep apnea. 7. Increased white count. 8. Lymphopenia. 9. Hyponatremia. 10.Obesity with body mass index of 34.8. 11.FULL CODE. DISCHARGE DISPOSITION: The patient will be discharged in stable condition with guarded prognosis. Total time taken 35 minutes. HISTORY OF PRESENT ILLNESS: This 45-year-old gentleman with a past medical history of multiple medical problems was admitted with bilateral extensive wound infection. MRSA was grown. Patient was evaluated by multiple consultants. Vancomycin was used for treatment. A PICC line was inserted and Dr. Gonzalez saw the patient during his hospitalization. Wound care was noted. Dr. Burroughs also saw the patient. The patient improved significantly. Abdominal angiography was also done which showed patent arteries. On exam, vitals are stable. CARDIOVASCULAR SYSTEM: S1, S2 muffled. ABDOMEN: Soft. NERVOUS SYSTEM: No focal deficit. LEGS: Bilateral leg ulcers. Cultures are as above. Multiple cultures grew MRSA as well as group D Enterococcus. The patient will be discharged in stable condition with guarded progress. DISCHARGE ADVICE AND MEDICATIONS: 1. Cardiac diet. 2. Activity limited until followup. 3. Follow up with primary physician Yohana Rogers in 1-2 days. 4. Follow up with Dr. Burroughs, Dr. Gonzalez. 5. Wound care infusion and home care as recommended. 6. Lisinopril 40 mg at bedtime. 7. Lopressor 25 mg p.o. b.i.d. 8. Multivitamins 1 p.o. daily. 9. Propofol 10 mg at bedtime. 10.Steglatro 5 mg p.o. daily. 11.Trulicity 0.7 mg subcutaneously daily. 12.CBC and BMP with primary physician. 13.IV antibiotics per Infectious Disease. 14.Wound care instructions. Guarded prognosis because of multiple complex medical issues. 1. PICC line care. 2. Vancomycin with a target rate of 15 for total of [address] Burroughs. Total time taken 35 minutes. MMODL / IJN: [id number] /
--- NOTE | 2020-12-28 08:44 | CDI ---
Documentation Clarification Form Date: 12/24/2020 02:20:00 PM From: Jaymie Guerra CCS, CCDS Admit Date: 12/21/2020 12:23:00 PM Patient Name: Carlo Clay Visit Number: [id number] Discharge Date: 12/26/2020 04:48:00 PM ATTENTION: The Clinical Documentation Specialists (CDI) and [facility] Coding Staff appreciate your assistance in clarifying documentation. Please respond to the clarification below the line at the bottom and electronically sign. The CDI & [facility] Coding staff will review the response and follow-up if needed. Please note: Queries are made part of the Legal Health Record. If you have any questions, please contact the author of this message via ITS. Dr. Richie Gonzalez: A debridement is documented in the 12/22 Procedure Note as: Debridement of the right foot plantar aspect wound with deep culture sent for culture and sensitivity and debridement of the left foot plantar aspect wound debridement. Tissue was sent for culture. Additional clarification regarding the procedure is requested. History/Risk Factors per the 12/21 H/P: IDDM II with diabetic neuropathy & Charcot's foot, Hypertension, Hyperlipidemia, Sleep apnea. Clinical Indicators: Presented to the ED on 12/21 with a right foot infection. Admitted with Right Foot Infection, Wound & Cellulitis. 12/21 VS: T 99.7, P 110, R 18, BP 118/71, PO 97 RA 12/21 LAB: WBC 10.9, Neut 9.0, Lymph 0.7 12/21 Blood Culture: Final: MRSA 12/22 Would Culture (Preliminary): Staph Aureus 12/22 Tissue Culture (Preliminary): MRSA Treatment 12/21: IV Cefepime, IV Vancomycin 12/22 Procedure as described above. 12/23 Procedure: Exploration of the wound & change of dressing under anesthesia. Please clarify the type of procedure performed: [ ] Excisional debridement (the removal of necrotic, devitalized tissue or slough by means of cutting away of tissue) [ ] Non-excisional debridement (the removal of necrotic, devitalized tissue or slough by means of flushing, brushing, or washing. (Irrigation) [ ] Other; please specify [ ] Unable to determine Five elements required for accurate and compliant documentation of a debridement: Technique used (e.g., excisional, excised, cutting, brushing, jet lavage etc.) Instrument(s) used (e.g., scalpel, curette, etc.) Nature of the tissue removed (e.g., necrotic, devitalized tissues, non-viable tissue, etc.) Appearance and size of the wound (e.g., down to fresh bleeding tissue, 7cm x 10cm, etc.) Depth of the debridement* (e.g., skin, subcutaneous tissue, fascia, muscle, bone, etc.) (Template Last Revised: October 2020) MTDD
--- NOTE | 2020-12-31 09:08 | CDI ---
Documentation Clarification Form Date: 12/31/20 From: Alyssia Marinelli Phone: Admit Date: 12/21/2020 12:23:00 PM Patient Name: Carlo Clay Visit Number: [id number] Discharge Date: 12/26/2020 04:48:00 PM ATTENTION: The Clinical Documentation Specialists (CDI) and [facility] Coding Staff appreciate your assistance in clarifying documentation. Please respond to the clarification below the line at the bottom and electronically sign. The CDI & [facility] Coding staff will review the response and follow-up if needed. Please note: Queries are made part of the Legal Health Record. If you have any questions, please contact the author of this message via ITS. Dr. Richie Gonzalez, A debridement is documented 12/23 in your operative note. Additional clarification regarding the procedure is requested. History/Risk Factors: DM Type 2 with Charcot's foot, peripheral neuropathy, gangrene, cellulitis and abscess of right foot Clinical Indicators: Charcot foot with abscess right foot post I D. Treatment: Exploration of the wound and change of dressing under anesthesia and placement of an Aquacel silver rope. Using curette, we did selective debridement of the right foot wound. Please clarify the type of procedure performed: [ ] Excisional debridement (the removal of necrotic, devitalized tissue or slough by means of cutting away of tissue) [ ] Non-excisional debridement (the removal of necrotic, devitalized tissue or slough by means of flushing, brushing, or washing. (Irrigation) [ ] Other; please specify [ ] Unable to determine Five elements required for accurate and compliant documentation of a debridement: Technique used (e.g., excisional, excised, cutting, brushing, jet lavage etc.) Instrument(s) used (e.g., scalpel, curette, etc.) Nature of the tissue removed (e.g., necrotic, devitalized tissues, non-viable tissue, etc.) Appearance and size of the wound (e.g., down to fresh bleeding tissue, 7cm x 10cm, etc.) Depth of the debridement* (e.g., skin, subcutaneous tissue, fascia, muscle, bone, etc.) MTDD
--- NOTE | 2020-12-31 09:35 | CDI ---
Documentation Clarification Form Date: 12/31/20 From: Alyssia Marinelli Phone: Admit Date: 12/21/2020 12:23:00 PM Patient Name: Carlo Clay Visit Number: [id number] Discharge Date: 12/26/2020 04:48:00 PM ATTENTION: The Clinical Documentation Specialists (CDI) and [facility] Coding Staff appreciate your assistance in clarifying documentation. Please respond to the clarification below the line at the bottom and electronically sign. The CDI & [facility] Coding staff will review the response and follow-up if needed. Please note: Queries are made part of the Legal Health Record. If you have any questions, please contact the author of this message via ITS. Dr. Guero Sun, Conflicting documentation has been found in the medical record. As attending physician, please provide clarification. Dr Burroughs documents no osteomyelitis evident in his consult. Then in his 12/25 progress note states right diabetic foot infection with underlying osteomyelitis. Neither you or Dr Gonzalez documented osteomyelitis. History/Risk Factors: HTN, obesity, HLD, sleep apnea, previous left great toe amputation Clinical Indicators: DM Type 2 with Charcot's foot, peripheral neuropathy, gangrene, cellulitis and abscess of right foot Treatment: Debridement of the right foot plantar aspect wound on 12/22. Please clarify which diagnosis is most appropriate: [ ] Osteomyelitis ruled out [ ] Acute osteomyelitis [ ] Chronic osteomyelitis [ ] Other (please specify) [ ] Unable to determine Osteomyelitis ruled out MTDD
--- NOTE | 2020-12-31 10:09 | CDI ---
Documentation Clarification Form Date: 12/24/2020 02:20:00 PM From: Jaymie Guerra CCS, CCDS Admit Date: 12/21/2020 12:23:00 PM Patient Name: Carlo Clay Visit Number: [id number] Discharge Date: 12/26/2020 04:48:00 PM ATTENTION: The Clinical Documentation Specialists (CDI) and [facility] Coding Staff appreciate your assistance in clarifying documentation. Please respond to the clarification below the line at the bottom and electronically sign. The CDI & [facility] Coding staff will review the response and follow-up if needed. Please note: Queries are made part of the Legal Health Record. If you have any questions, please contact the author of this message via ITS. Dr. Richie Gonzalez: A debridement is documented in the 12/22 Procedure Note as: Debridement of the right foot plantar aspect wound with deep culture sent for culture and sensitivity and debridement of the left foot plantar aspect wound debridement. Tissue was sent for culture. Additional clarification regarding the procedure is requested. History/Risk Factors per the 12/21 H/P: IDDM II with diabetic neuropathy & Charcot's foot, Hypertension, Hyperlipidemia, Sleep apnea. Clinical Indicators: Presented to the ED on 12/21 with a right foot infection. Admitted with Right Foot Infection, Wound & Cellulitis. 12/21 VS: T 99.7, P 110, R 18, BP 118/71, PO 97 RA 12/21 LAB: WBC 10.9, Neut 9.0, Lymph 0.7 12/21 Blood Culture: Final: MRSA 12/22 Would Culture (Preliminary): Staph Aureus 12/22 Tissue Culture (Preliminary): MRSA Treatment 12/21: IV Cefepime, IV Vancomycin 12/22 Procedure as described above. 12/23 Procedure: Exploration of the wound & change of dressing under anesthesia. Please clarify the type of procedure performed: [ ] Excisional debridement (the removal of necrotic, devitalized tissue or slough by means of cutting away of tissue) [ ] Non-excisional debridement (the removal of necrotic, devitalized tissue or slough by means of flushing, brushing, or washing. (Irrigation) [ ] Other; please specify [ ] Unable to determine Five elements required for accurate and compliant documentation of a debridement: Technique used (e.g., excisional, excised, cutting, brushing, jet lavage etc.) Instrument(s) used (e.g., scalpel, curette, etc.) Nature of the tissue removed (e.g., necrotic, devitalized tissues, non-viable tissue, etc.) Appearance and size of the wound (e.g., down to fresh bleeding tissue, 7cm x 10cm, etc.) Depth of the debridement* (e.g., skin, subcutaneous tissue, fascia, muscle, bone, etc.) (Template Last Revised: October 2020) MTDD
--- NOTE | 2021-01-02 07:14 | CDI ---
Documentation Clarification Form Date: 12/24/2020 02:20:00 PM From: Jaymie Guerra CCS, CCDS Admit Date: 12/21/2020 12:23:00 PM Patient Name: Carlo Clay Visit Number: [id number] Discharge Date: 12/26/2020 04:48:00 PM ATTENTION: The Clinical Documentation Specialists (CDI) and [facility] Coding Staff appreciate your assistance in clarifying documentation. Please respond to the clarification below the line at the bottom and electronically sign. The CDI & [facility] Coding staff will review the response and follow-up if needed. Please note: Queries are made part of the Legal Health Record. If you have any questions, please contact the author of this message via ITS. Dr. Richie Gonzalez: Please respond to this query in your documentation or on the query form prior to signing. A debridement is documented in the 12/22 Procedure Note as: Debridement of the right foot plantar aspect wound with deep culture sent for culture and sensitivity and debridement of the left foot plantar aspect wound debridement. Tissue was sent for culture. Additional clarification regarding the procedure is requested. History/Risk Factors per the 12/21 H/P: IDDM II with diabetic neuropathy & Charcot's foot, Hypertension, Hyperlipidemia, Sleep apnea. Clinical Indicators: Presented to the ED on 12/21 with a right foot infection. Admitted with Right Foot Infection, Wound & Cellulitis. 12/21 VS: T 99.7, P 110, R 18, BP 118/71, PO 97 RA 12/21 LAB: WBC 10.9, Neut 9.0, Lymph 0.7 12/21 Blood Culture: Final: MRSA 12/22 Would Culture (Preliminary): Staph Aureus 12/22 Tissue Culture (Preliminary): MRSA Treatment 12/21: IV Cefepime, IV Vancomycin 12/22 Procedure as described above. 12/23 Procedure: Exploration of the wound & change of dressing under anesthesia. Please clarify the type of procedure performed: [ ] Excisional debridement (the removal of necrotic, devitalized tissue or slough by means of cutting away of tissue) [ ] Non-excisional debridement (the removal of necrotic, devitalized tissue or slough by means of flushing, brushing, or washing. (Irrigation) [ ] Other; please specify [ ] Unable to determine Five elements required for accurate and compliant documentation of a debridement: Technique used (e.g., excisional, excised, cutting, brushing, jet lavage etc.) Instrument(s) used (e.g., scalpel, curette, etc.) Nature of the tissue removed (e.g., necrotic, devitalized tissues, non-viable tissue, etc.) Appearance and size of the wound (e.g., down to fresh bleeding tissue, 7cm x 10cm, etc.) Depth of the debridement* (e.g., skin, subcutaneous tissue, fascia, muscle, bone, etc.) (Template Last Revised: October 2020) MTDD
--- NOTE | 2021-01-02 08:16 | CDI ---
Documentation Clarification Form Date: 12/31/2020 09:08:00 AM From: Alyssia Marinelli Phone: Admit Date: 12/21/2020 12:23:00 PM Patient Name: Carlo Clay Visit Number: [id number] Discharge Date: 12/26/2020 04:48:00 PM ATTENTION: The Clinical Documentation Specialists (CDI) and [facility] Coding Staff appreciate your assistance in clarifying documentation. Please respond to the clarification below the line at the bottom and electronically sign. The CDI & [facility] Coding staff will review the response and follow-up if needed. Please note: Queries are made part of the Legal Health Record. If you have any questions, please contact the author of this message via ITS. Dr. Richie Gonzalez, A debridement is documented 12/23 in your operative note. Additional clarification regarding the procedure is requested. History/Risk Factors: DM Type 2 with Charcot's foot, peripheral neuropathy, gangrene, cellulitis and abscess of right foot Clinical Indicators: Charcot foot with abscess right foot post I D. Treatment: Exploration of the wound and change of dressing under anesthesia and placement of an Aquacel silver rope. Using curette, we did selective debridement of the right foot wound. Please clarify the type of procedure performed: [ ] Excisional debridement (the removal of necrotic, devitalized tissue or slough by means of cutting away of tissue) [ ] Non-excisional debridement (the removal of necrotic, devitalized tissue or slough by means of flushing, brushing, or washing. (Irrigation) [ ] Other; please specify [ ] Unable to determine Five elements required for accurate and compliant documentation of a debridement: Technique used (e.g., excisional, excised, cutting, brushing, jet lavage etc.) Instrument(s) used (e.g., scalpel, curette, etc.) Nature of the tissue removed (e.g., necrotic, devitalized tissues, non-viable tissue, etc.) Appearance and size of the wound (e.g., down to fresh bleeding tissue, 7cm x 10cm, etc.) Depth of the debridement* (e.g., skin, subcutaneous tissue, fascia, muscle, bone, etc.) MTDD
--- NOTE | 2021-01-04 08:39 | CDI ---
Documentation Clarification Form Date: 12/24/2020 02:20:00 PM From: Jaymie Guerra CCS, CCDS Admit Date: 12/21/2020 12:23:00 PM Patient Name: Carlo Clay Visit Number: [id number] Discharge Date: 12/26/2020 04:48:00 PM ATTENTION: The Clinical Documentation Specialists (CDI) and [facility] Coding Staff appreciate your assistance in clarifying documentation. Please respond to the clarification below the line at the bottom and electronically sign. The CDI & [facility] Coding staff will review the response and follow-up if needed. Please note: Queries are made part of the Legal Health Record. If you have any questions, please contact the author of this message via ITS. Dr. Richie Gonzalez: Please respond to this query in your documentation or on this query form prior to signing. A debridement is documented in the 12/22 Procedure Note as: Debridement of the right foot plantar aspect wound with deep culture sent for culture and sensitivity and debridement of the left foot plantar aspect wound debridement. Tissue was sent for culture. Additional clarification regarding the procedure is requested. History/Risk Factors per the 12/21 H/P: IDDM II with diabetic neuropathy & Charcot's foot, Hypertension, Hyperlipidemia, Sleep apnea. Clinical Indicators: Presented to the ED on 12/21 with a right foot infection. Admitted with Right Foot Infection, Wound & Cellulitis. 12/21 VS: T 99.7, P 110, R 18, BP 118/71, PO 97 RA 12/21 LAB: WBC 10.9, Neut 9.0, Lymph 0.7 12/21 Blood Culture: Final: MRSA 12/22 Would Culture (Preliminary): Staph Aureus 12/22 Tissue Culture (Preliminary): MRSA Treatment 12/21: IV Cefepime, IV Vancomycin 12/22 Procedure as described above. 12/23 Procedure: Exploration of the wound & change of dressing under anesthesia. Please clarify the type of procedure performed: [ ] Excisional debridement (the removal of necrotic, devitalized tissue or slough by means of cutting away of tissue) [ ] Non-excisional debridement (the removal of necrotic, devitalized tissue or slough by means of flushing, brushing, or washing. (Irrigation) [ ] Other; please specify [ ] Unable to determine Five elements required for accurate and compliant documentation of a debridement: Technique used (e.g., excisional, excised, cutting, brushing, jet lavage etc.) Instrument(s) used (e.g., scalpel, curette, etc.) Nature of the tissue removed (e.g., necrotic, devitalized tissues, non-viable tissue, etc.) Appearance and size of the wound (e.g., down to fresh bleeding tissue, 7cm x 10cm, etc.) Depth of the debridement* (e.g., skin, subcutaneous tissue, fascia, muscle, bone, etc.) (Template Last Revised: October 2020) MTDD
--- NOTE | 2021-01-04 09:17 | CDI ---
Documentation Clarification Form Date: 12/31/2020 09:08:00 AM From: Alyssia Marinelli Phone: Admit Date: 12/21/2020 12:23:00 PM Patient Name: Carlo Clay Visit Number: [id number] Discharge Date: 12/26/2020 04:48:00 PM ATTENTION: The Clinical Documentation Specialists (CDI) and [facility] Coding Staff appreciate your assistance in clarifying documentation. Please respond to the clarification below the line at the bottom and electronically sign. The CDI & [facility] Coding staff will review the response and follow-up if needed. Please note: Queries are made part of the Legal Health Record. If you have any questions, please contact the author of this message via ITS. Dr. Richie Gonzalez, A debridement is documented 12/23 in your operative note. Additional clarification regarding the procedure is requested. History/Risk Factors: DM Type 2 with Charcot's foot, peripheral neuropathy, gangrene, cellulitis and abscess of right foot Clinical Indicators: Charcot foot with abscess right foot post I D. Treatment: Exploration of the wound and change of dressing under anesthesia and placement of an Aquacel silver rope. Using curette, we did selective debridement of the right foot wound. Please clarify the type of procedure performed: [ ] Excisional debridement (the removal of necrotic, devitalized tissue or slough by means of cutting away of tissue) [ ] Non-excisional debridement (the removal of necrotic, devitalized tissue or slough by means of flushing, brushing, or washing. (Irrigation) [ ] Other; please specify [ ] Unable to determine Five elements required for accurate and compliant documentation of a debridement: Technique used (e.g., excisional, excised, cutting, brushing, jet lavage etc.) Instrument(s) used (e.g., scalpel, curette, etc.) Nature of the tissue removed (e.g., necrotic, devitalized tissues, non-viable tissue, etc.) Appearance and size of the wound (e.g., down to fresh bleeding tissue, 7cm x 10cm, etc.) Depth of the debridement* (e.g., skin, subcutaneous tissue, fascia, muscle, bone, etc.) MTDD
== END 2020-12-26 16:48 | disposition home health service (06) | DRG 854 ==
LOC: EC 09:51 → 4SSUR 12:23 → 6NMEDSUR 12-25 16:07
PROVIDERS: ADMIT Internal Medicine; ATTEND Internal Medicine
DX: A41.02 Sepsis due to Methicillin resistant Staphylococcus aureus (principal); E87.0 Hyperosmolality and hypernatremia; L97.516 Non-pressure chronic ulcer of other part of right foot with bone involvement without evidence of necrosis; L03.115 Cellulitis of right lower limb; L02.611 Cutaneous abscess of right foot; T84.318A Breakdown (mechanical) of other bone devices, implants and grafts, initial encounter; E87.1 Hypo-osmolality and hyponatremia; E11.52 Type 2 diabetes mellitus with diabetic peripheral angiopathy with gangrene; E11.610 Type 2 diabetes mellitus with diabetic neuropathic arthropathy; E11.42 Type 2 diabetes mellitus with diabetic polyneuropathy; D72.810 Lymphocytopenia; L97.529 Non-pressure chronic ulcer of other part of left foot with unspecified severity; E11.621 Type 2 diabetes mellitus with foot ulcer; E11.65 Type 2 diabetes mellitus with hyperglycemia; Z89.412 Acquired absence of left great toe; Z20.822 Contact with and (suspected) exposure to COVID-19; G47.30 Sleep apnea, unspecified; I10 Essential (primary) hypertension; E66.9 Obesity, unspecified; Z68.35 Body mass index [BMI] 35.0-35.9, adult; E78.5 Hyperlipidemia, unspecified; S92.321D Displaced fracture of second metatarsal bone, right foot, subsequent encounter for fracture with routine healing; S92.331D Displaced fracture of third metatarsal bone, right foot, subsequent encounter for fracture with routine healing; Z79.899 Other long term (current) drug therapy; Z98.52 Vasectomy status; Z90.49 Acquired absence of other specified parts of digestive tract; Z71.3 Dietary counseling and surveillance; Z88.1 Allergy status to other antibiotic agents; Z88.8 Allergy status to other drugs, medicaments and biological substances; Z81.8 Family history of other mental and behavioral disorders; Z83.2 Family history of diseases of the blood and blood-forming organs and certain disorders involving the immune mechanism; Z83.49 Family history of other endocrine, nutritional and metabolic diseases; Z82.5 Family history of asthma and other chronic lower respiratory diseases; Z83.3 Family history of diabetes mellitus; Z82.3 Family history of stroke; Z81.2 Family history of tobacco abuse and dependence; Z82.49 Family history of ischemic heart disease and other diseases of the circulatory system
CPT/HCPCS: 36200; 36573; 75710; 76937; 80048; 80053; 80202; 83605; 85025; 85610; 85652; 85730; 86140; 87040; 87070; 87075; 87077; 87102; 87186; 87205; 87635; 93005; 94760; 96365; 96366; 96367; 99285

== ENCOUNTER 2021-10-07 16:44 | Inpatient (IN) | payer BC ==
[2021-10-07] MEDS ORDERED: VANCOMYCIN IV PER PHARMACY 1 EACH MISC MISCELLANE PRN (17:20)
[2021-10-07] MEDS ORDERED: VANCOMYCIN 1,500 MG in SODIUM CHLORIDE 0.9% 250 ML IVPB ONE (17:45)
--- NOTE | 2021-10-07 18:15 | ED ---
General Adult HPI - General Chief complaint: Wound/Laceration Stated complaint: Foot infection Time Seen by Provider: 10/07/21 16:50 Source: patient, RN notes reviewed, old records reviewed Mode of arrival: wheelchair Limitations: no limitations - History of Present Illness Initial comments: This is a 45-year-old male who presents emergency Department with diabetes and a history of a right foot wound. Patient states he has been seeing Dr. Calvo for the last [address] Gonzalez and Dr. Power believes the wound is infected wanted the patient to be brought in put on antibiotics and to be followed up with himself and Sayed. He also requested a CT of the foot. Patient self has the chills but he denies any fever. Patient denies any other symptoms at this time. Patient denies any shortness of breath or difficulty breathing patient denies any abdominal pain patient is not vomiting diarrhea. - Related Data Home Medications Medication Instructions Recorded Confirmed Multivitamin [Multivitamins] 1 tab PO DAILY 12/19/13 10/07/21 Dulaglutide [Trulicity] 0.75 mg SQ HARRELL 11/01/18 10/07/21 lisinopriL 40 mg PO HS 12/21/20 10/07/21 Meclizine HCl 25 mg PO QID PRN 10/07/21 10/07/21 Metoprolol Tartrate [Lopressor] 50 mg PO BID-W/MEALS 10/07/21 10/07/21 Pravastatin Sodium [Pravachol] 20 mg PO HS 10/07/21 10/07/21 Allergies Allergy/AdvReac Type Severity Reaction Status Date / Time amlodipine [From Norvasc] Allergy Intermediate Rash/Hives Verified 10/07/21 19 :20 amoxicillin trihydrate Allergy Rash/Hives Verified 10/07/21 19:20 [From Augmentin] ciprofloxacin [From Cipro] Allergy Unknown Verified 10/07/21 19:20 ciprofloxacin HCl Allergy Unknown Verified 10/07/21 19:20 [From Cipro] cyclobenzaprine HCl Allergy Rash/Hives Verified 10/07/21 19:20 [From Flexeril] potassium clavulanate Allergy Rash/Hives Verified 10/07/21 19:20 [From Augmentin] Review of Systems ROS Statement: Those systems with pertinent positive or pertinent negative responses have been documented in the HPI. ROS Other: All systems not noted in ROS Statement are negative. Past Medical History Past Medical History: Diabetes Mellitus, Hyperlipidemia, Hypertension, Neurologic Disorder, Sleep Apnea/CPAP/BIPAP Additional Past Medical History / Comment(s): neuropathy to feet, prior wound left toe-went to wound center for, no CPAP History of Any Multi-Drug Resistant Organisms: MRSA Date of last positivie culture/infection: 12/22/20 MDRO Source:: Blood,FOOT Past Surgical History: Appendectomy, Orthopedic Surgery Additional Past Surgical History / Comment(s): vasectomy, left big toe amput ated,right foot surgery, right leg amputation. Past Anesthesia/Blood Transfusion Reactions: No Reported Reaction Past Psychological History: No Psychological Hx Reported Smoking Status: Never smoker Past Alcohol Use History: None Reported Past Drug Use History: None Reported - Past Family History Brother(s) Additional Family Medical History / Comment(s): anxiety Father Family Medical History: COPD, Deep Vein Thrombosis (DVT), Hyperlipidemia, Hypertension Additional Family Medical History / Comment(s): PAD, PART OF LEG AMP Mother Family Medical History: Cancer, COPD, CVA/TIA, Diabetes Mellitus, Hypertension Additional Family Medical History / Comment(s): bipolar,anxiety,depression,smoking General Exam - General Exam Comments Initial Comments: GENERAL: Patient is well-developed and well-nourished. Patient is nontoxic and well-hy drated and is in mild distress. ENT: Neck is soft and supple. No significant lymphadenopathy is noted. Oropharynx is clear. Moist mucous membranes. Neck has full range of motion without eliciting any pain. EYES: The sclera were anicteric and conjunctiva were pink and moist. Extraocular move ments were intact and pupils were equal round and reactive to light. Eyelids were unremarkable. PULMONARY: Unlabored respirations. Good breath sounds bilaterally. No audible rales rhonchi or wheezing was noted. CARDIOVASCULAR: There is a regular rate and rhythm without any murmurs gallops or rubs. ABDOMEN: Soft and nontender with normal bowel sounds. SKIN: Skin is clear with no lesions or rashes and otherwise unremarkable. NEUROLOGIC: Patient is alert and oriented x3. Cranial nerves II through XII are grossly intact. Motor and sensory are also intact. Normal speech, volume and content. Symmetrical smile. MUSCULOSKELETAL: Normal extremities with adequate strength and full range of motion. I did not look at the wound on the right foot because he just came from the wound center where Dr. Gonzalez he just freshly dressed the wound. LYMPHATICS: No significant lymphadenopathy is noted PSYCHIATRIC: Normal psychiatric evaluation. Limitations: no limitations Course Vital Signs 10/07/21 16:48 Temperature 97.9 F Pulse Rate 85 Respiratory 20 Rate Blood Pressure 112/75 O2 Sat by Pulse 100 Oximetry Medical Decision Making - Medical Decision Making EKG is of poor quality however does show a sinus rhythm at 90 bpm QRS is 82 QT interval 341 QTC is 388. I do not see any obvious ST segment elevation or depression however EKG again is a very poor quality. I started the patient on vancomycin gave the patient dose of Rocephin. I spoke with Dr. Sun he agreed to admit the patient admitted the patient I wrote admitting orders I consulted Dr. Gonzalez and Dr. Burroughs CT of the foot shows questionable osteomyelitis. - Lab Data Result diagrams: 10/07/21 19:00 10/07/21 19:43 Lab Results 10/07/21 10/07/21 10/07/21 Range/Units 19:00 19:00 19:00 WBC 14.4 H (3.8-10.6) k/uL RBC 5.01 (4.30-5.90) m/uL Hgb 14.0 (13.0-17.5) gm/dL Hct 43.0 (39.0-53.0) % MCV 85.8 (80.0-100.0) fL MCH 27.9 (25.0-35.0) pg MCHC 32.5 (31.0-37.0) g/dL RDW 14.6 (11.5-15.5) % Plt Count 645 H (150-450) k/uL MPV 7.4 Neutrophils % 79 % Lymphocytes % 11 % Monocytes % 6 % Eosinophils % 2 % Basophils % 1 % Neutrophils # 11.4 H (1.3-7.7) k/uL Lymphocytes # 1.6 (1.0-4.8) k/uL Monocytes # 0.9 (0-1.0) k/uL Eosinophils # 0.3 (0-0.7) k/uL Basophils # 0.1 (0-0.2) k/uL Hypochromasia Slight Poikilocytosis Slight PT 10.5 (9.0-12.0) sec INR 1.0 (<1.2) APTT 24.2 (22.0-30.0) sec Sodium 132 L (137-145) mmol/L Potassium 6.1 H* (3.5-5.1) mmol/L Chloride 97 L (98-107) mmol/L Carbon Dioxide 23 (22-30) mmol/L Anion Gap 12 mmol/L BUN 21 H (9-20) mg/dL Creatinine 0.78 (0.66-1.25) mg/dL Est GFR (CKD-EPI)AfAm >90 (>60 ml/min/1.73 sqM) Est GFR (CKD-EPI)NonAf >90 (>60 ml/min/1.73 sqM) Glucose 212 H (74-99) mg/dL Plasma Lactic Acid Juan (0.7-2.0) mmol/L Calcium 9.4 (8.4-10.2) mg/dL Total Bilirubin 0.9 (0.2-1.3) mg/dL AST 71 H (17-59) U/L ALT 91 H (4-49) U/L Alkaline Phosphatase 153 H (38-126) U/L Total Protein 7.5 (6.3-8.2) g/dL Albumin 3.6 (3.5-5.0) g/dL 10/07/21 Range/Units 19:00 WBC (3.8-10.6) k/uL RBC (4.30-5.90) m/uL Hgb (13.0-17.5) gm/dL Hct (39.0-53.0) % MCV (80.0-100.0) fL MCH (25.0-35.0) pg MCHC (31.0-37.0) g/dL RDW (11.5-15.5) % Plt Count (150-450) k/uL MPV Neutrophils % % Lymphocytes % % Monocytes % % Eosinophils % % Basophils % % Neutrophils # (1.3-7.7) k/uL Lymphocytes # (1.0-4.8) k/uL Monocytes # (0-1.0) k/uL Eosinophils # (0-0.7) k/uL Basophils # (0-0.2) k/uL Hypochromasia Poikilocytosis PT (9.0-12.0) sec INR (<1.2) APTT (22.0-30.0) sec Sodium (137-145) mmol/L Potassium (3.5-5.1) mmol/L Chloride (98-107) mmol/L Carbon Dioxide (22-30) mmol/L Anion Gap mmol/L BUN (9-20) mg/dL Creatinine (0.66-1.25) mg/dL Est GFR (CKD-EPI)AfAm (>60 ml/min/1.73 sqM) Est GFR (CKD-EPI)NonAf (>60 ml/min/1.73 sqM) Glucose (74-99) mg/dL Plasma Lactic Acid Juan 2.9 H* (0.7-2.0) mmol/L Calcium (8.4-10.2) mg/dL Total Bilirubin (0.2-1.3) mg/dL AST (17-59) U/L ALT (4-49) U/L Alkaline Phosphatase (38-126) U/L Total Protein (6.3-8.2) g/dL Albumin (3.5-5.0) g/dL Disposition Clinical Impression: Infected wound, Wound of left foot Disposition: ADMITTED IP TO THIS [facility] Time of Disposition: 19:35
--- NOTE | 2021-10-07 18:37 | CONS ---
DATE OF CONSULTATION: 10/07/2021 This is a 45-year-old diabetic male, well known to me. Patient has been coming to the wound clinic. This patient had a left big toe amputation done by a car cleaner about 7 years ago and he came to the wound clinic with a wound which was draining, and foot was painful with tenderness noted. The patient has been admitted. Culture came back as MRSA. Patient will be seen after his CT scan. Most likely he will need some debridement of the left foot. Past history: Patient had a right below-knee amputation done by me in the past. He has an artificial prosthesis that is working well. Medical history is significant for diabetes, hypertension. PHYSICAL EXAMINATION: NECK: Supple. Trachea central. CHEST: Clear to auscultation. ABDOMEN: Soft. Femorals are palpable. Dorsal pedis is 2+. The patient has open wound on the left foot big toe stump with tenderness and draining of some pus. PLAN: Will do the CT of the foot. Patient will be seen by Infectious Disease for IV antibiotic. Patient will need wound exploration. MMODL / IJN: [id number] / ROSA
[2021-10-07 18:53] LABS: Basophils # (A) 0.1 k/uL (0-0.2); Basophils % (A) 1 %; Eosinophils # (A) 0.3 k/uL (0-0.7); Eosinophils % (A) 2 %; Hypochromasia Slight; Lymphocytes # (A) 1.6 k/uL (1.0-4.8); Lymphocytes % (A) 11 %; MCH 27.9 pg (25.0-35.0); MCHC 32.5 g/dL (31.0-37.0); MCV 85.8 fL (80.0-100.0); Mean Platelet Volume 7.4; Monocytes # (A) 0.9 k/uL (0-1.0); Monocytes % (A) 6 %; Neutrophils # (A) 11.4 k/uL (1.3-7.7); Neutrophils % (A) 79 %; Platelet Count 645 k/uL (150-450); Poikilocytosis Slight; RBC 5.01 m/uL (4.30-5.90); RDW 14.6 % (11.5-15.5); WBC 14.4 k/uL (3.8-10.6)
[2021-10-07 19:01] LABS: ALT 91 U/L (4-49); African American GFR (CKD) >90 (>60 ml/min/1.73 sqM); Anion Gap 12 mmol/L; Blood Urea Nitrogen 21 mg/dL (9-20); Calcium 9.4 mg/dL (8.4-10.2); Carbon Dioxide 23 mmol/L (22-30); Chloride 97 mmol/L (98-107); Glucose 212 mg/dL (74-99); Non-African American GFR(CKD) >90 (>60 ml/min/1.73 sqM); Sodium 132 mmol/L (137-145); Total Bilirubin 0.9 mg/dL (0.2-1.3)
[2021-10-07 19:05] LABS: AST 71 U/L (17-59); Albumin 3.6 g/dL (3.5-5.0); Potassium 6.1 mmol/L (3.5-5.1); Total Protein 7.5 g/dL (6.3-8.2)
[2021-10-07 19:06] LABS: Alkaline Phosphatase 153 U/L (38-126)
[2021-10-07 19:07] LABS: Partial Thromboplastin Time 24.2 sec (22.0-30.0); Prothrombin Time 10.5 sec (9.0-12.0)
[2021-10-07] MEDS: SODIUM CHLORIDE 0.9% 500 ML 500 ML IV SCH ×2 (19:29→20:46)
[2021-10-07] MEDS ORDERED: SODIUM CHLORIDE 0.9% 1,000 ML IV ONE (19:35)
--- NOTE | 2021-10-07 19:38 | CT ---
EXAMINATION TYPE: CT foot LT wo con DATE OF EXAM: 10/07/2021 COMPARISON: Radiographs 11/05/2018. HISTORY: Infection. CT DLP: 241.[address] images of the left foot was performed without contrast. Coronal and sagittal reformats were provided and reviewed. Also Volumetric 3-D images generated on an independent workstation were provided and reviewed. Automa gustavo exposure control for dose reduction was used. FINDINGS: There is chronic appearing diffuse osseous erosions of the midfoot with scattered numerous tiny osseo us fragments adjacent to the tarsals and metatarsal bases. There is associated indistinctness of the osseous structures and mild deformity of the tarsal bones. There is chronic lateral subluxation of th e tarsometatarsal joints. There is multiple punctate foci of gas involving the cuboid bone. There is diffuse moderate to marked soft tissue edema most pronounced at the mid foot. No definite fo alex fluid collections seen. There is prior amputation of the great toe at the level of the tarsometatarsal joint. Otherwise no ac [place] fracture. IMPRESSION: DIFFUSE OSSEOUS EROSIONS WITH DEFORMITY AND CHRONIC SUBLUXATION OF THE MIDFOOT. FINDINGS CAN BE SEEN WITH CHARCOT ARTHROPATHY. DUE TO OVERLAPPING IMAGED CHARACTERISTICS, SUPERIMPOSED OSTEOMYELITIS CANNO T BE ENTIRELY EXCLUDED. HOWEVER THERE IS NOTE OF MULTIPLE FOCI OF GAS INVOLVING THE CUBOID BONE, CONC ERNING FOR OSTEOMYELITIS. FINDINGS ARE NEW COMPARED TO 2019 RADIOGRAPHS. ASSOCIATED SOFT TISSUE EDEMA WITHOUT DEFINITE FOCAL FLUID COLLECTIONS SEEN. PRIOR AMPUTATION OF THE GREAT TOE.
[2021-10-07] MEDS ORDERED: ACETAMINOPHEN TAB 500 MG TAB PO STA (21:45)
[2021-10-07] MEDS ORDERED: IBUPROFEN 600 MG TAB PO STA (21:46)
[2021-10-07] MEDS ORDERED: MECLIZINE 25 MG TAB PO PRN (22:20)
[2021-10-07 22:52] LABS: Glucose,Whole Blood 176 mg/dL (75-99)
[2021-10-07] MEDS: INSULIN ASPART (NovoLOG) 100 UNIT/ML VIAL SQ SCH (23:09)
[2021-10-08 02:43] LABS: Appearance,Urine Clear (Clear); Bilirubin,Urine Negative (Negative); Blood,Urine Negative (Negative); Color,Urine Yellow; Glucose,Urine (UA) 4+ (Negative); Ketones,Urine Negative (Negative); Leukocyte Esterase,Urine Negative (Negative); Nitrite,Urine Negative (Negative); PH, Urine 5.5 (5.0-8.0); Protein,Urine Trace (Negative); Specific Gravity,Urine 1.032 (1.001-1.035); Urobilinogen,Urine <2.0 mg/dL (<2.0)
[2021-10-08] MEDS: VANCOMYCIN 1,500 MG in SODIUM CHLORIDE 0.9% 250 ML IVPB SCH ×3 (03:03→20:59)
[2021-10-08 07:12] LABS: Glucose,Whole Blood 186 mg/dL (75-99)
[2021-10-08] MEDS: FAMOTIDINE 20 MG/2 ML VIAL IV SCH ×2 (08:32→20:59)
[2021-10-08] MEDS: SODIUM CHLORIDE 0.9% 1,000 ML IV SCH ×2 (08:33→21:17)
[2021-10-08] MEDS: HEPARIN SODIUM,PORCINE/PF 5,000 UNIT/0.5 ML SYRINGE SQ SCH ×2 (09:05→21:00)
[2021-10-08] MEDS: INSULIN ASPART (NovoLOG) 100 UNIT/ML VIAL SQ SCH ×4 (09:06→20:59)
[2021-10-08 09:28] LABS: African American GFR (CKD) 131.2 (60.0-200.0); Anion Gap 11.2 mmol/L (10.00-18.00); BUN/Creat Ratio 20.43 Ratio (12.00-20.00); Blood Urea Nitrogen 14.3 mg/dL (9.0-27.0); C Reactive Protein 12.7 mg/dL (0.00-0.80); Calcium 8.4 mg/dL (8.7-10.3); Carbon Dioxide 20.8 mmol/L (20.0-27.5); Non-African American GFR(CKD) 113.2 (60.0-200.0); Potassium 5.7 mmol/L (3.5-5.5)
[2021-10-08 11:55] LABS: Glucose,Whole Blood 177 mg/dL (75-99)
--- NOTE | 2021-10-08 12:39 | P.HPIM ---
History of Present Illness This is a pleasant 45 years old male with past medical history of Diabetes Mellitus, Hyperlipidemia, Hypertension, diabetic neuropathy Disorder, Sleep Apnea/CPAP/BIPAP At home he is on total lucidity 0.75 mg subcutaneous. Patient brought from wound center for left foot diabetic infection. Patient states that 4 weeks and a half ago he was following up with the wound center because his toe was open. This time he is been told he needs to come to emergency room He denies leg pain or warmth or redness. No other complaints, no chest pain or dyspnea. No change in urine or bowel habits. He has fever on admission He denies smoking, alcohol or illicit drugs Vitas looks stable, patient is afebrile but on admission he had a fever of 101.3. Heart rate is controlled, Lap showing leukocytosis of 14.4, INR 1.1, creatinine 0.7, potassium 6.1, came back to 5.5. Lactic acid elevated 2.9 came back to normal 1.4, liver enzymes AST 71 and ALT 91 slightly elevated, bilirubin is normal 0.9 Urine analysis showed glucosuria with no infection. Coronavirus not detected. CT of the foot: Diffuse osseous erosions with deformity and chronic subluxation of the mid foot finding could be seen with charcot arthropathy. With multiple foci of gas involving the cuboidbone , concerning for osteomyelitis. Which are new findings EKG showed supraventricular rhythm at 90 BPM. QTC 388 Emergency room patient was started on IV vancomycin and 1 dose of Rocephin as well as IV fluids Review of Systems CONSTITUTIONAL: No fever, no malaise, no fatigue. HEENT: No recent visual problems or hearing problems. Denied any sore throat. CARDIOVASCULAR: No orthopnea, PND, no palpitations, no syncope. PULMONARY: No shortness of breath, no cough, no hemoptysis. GASTROINTESTINAL: No diarrhea, no nausea, no vomiting, no abdominal pain. Normoactive bowel sounds. NEUROLOGICAL: No headaches, no weakness, no numbness. HEMATOLOGICAL: Denies any bleeding or petechiae. GENITOURINARY: Denies any burning micturition, frequency, or urgency. MUSCULOSKELETAL/RHEUMATOLOGICAL: Denies any joint pain, swelling, or any muscle pain. ENDOCRINE: Denies any polyuria or polydipsia. Past Medical History Past Medical History: Diabetes Mellitus, Hyperlipidemia, Hypertension, Neurologic Disorder, Sleep Apnea/CPAP/BIPAP Additional Past Medical History / Comment(s): neuropathy to feet, prior wound left toe-went to wound center for, no CPAP History of Any Multi-Drug Resistant Organisms: MRSA Date of last positivie culture/infection: 12/22/20 MDRO Source:: Blood,FOOT Past Surgical History: Appendectomy, Orthopedic Surgery Additional Past Surgical History / Comment(s): vasectomy, left big toe amputated,right foot surgery, right leg amputation. Past Anesthesia/Blood Transfusion Reactions: No Reported Reaction Past Psychological History: No Psychological Hx Reported Additional Psychological History / Comment(s): Pt resides with his spouse and 2 children. He is independent. Smoking Status: Never smoker Past Alcohol Use History: None Reported Past Drug Use History: None Reported - Past Family History Brother(s) Additional Family Medical History / Comment(s): anxiety Father Family Medical History: COPD, Deep Vein Thrombosis (DVT), Hyperlipidemia, Hypertension Additional Family Medical History / Comment(s): PAD, PART OF LEG AMP Mother Family Medical History: Cancer, COPD, CVA/TIA, Diabetes Mellitus, Hypertension Additional Family Medical History / Comment(s): bipolar,anxiety,depression,smoking Medications and Allergies Home Medications Medication Instructions Recorded Confirmed Type Multivitamin [Multivitamins] 1 tab PO DAILY 12/19/13 10/07/21 History Dulaglutide [Trulicity] 0.75 mg SQ HARRELL 11/01/18 10/07/21 History lisinopriL 40 mg PO HS 12/21/20 10/07/21 History Meclizine HCl 25 mg PO QID PRN 10/07/21 10/07/21 History Metoprolol Tartrate [Lopressor] 50 mg PO BID-W/MEALS 10/07/21 10/07/21 History Pravastatin Sodium [Pravachol] 20 mg PO HS 10/07/21 10/07/21 History Allergies Allergy/AdvReac Type Severity Reaction Status Date / Time amlodipine [From Norvasc] Allergy Intermediate Rash/Hives Verified 10/07/21 19:20 amoxicillin trihydrate Allergy Rash/Hives Verified 10/07/21 19:20 [From Augmentin] ciprofloxacin [From Cipro] Allergy Unknown Verified 10/07/21 19:20 ciprofloxacin HCl Allergy Unknown Verified 10/07/21 19:20 [From Cipro] cyclobenzaprine HCl Allergy Rash/Hives Verified 10/07/21 19:20 [From Flexeril] potassium clavulanate Allergy Rash/Hives Verified 10/07/21 19:20 [From Augmentin] Physical Exam Vitals: Vital Signs Temp Pulse Pulse Resp BP BP Pulse Ox 10/08/21 02:30 98.0 F 89 17 107/69 98 10/07/21 22:51 98.8 F 117 H 16 111/68 95 10/07/21 22:00 114 H 18 113/71 99 10/07/21 21:49 114 H 18 93/58 97 10/07/21 21:40 101.3 F H 118 H 18 98 10/07/21 16:48 97.9 F 85 20 112/75 100 Intake and Output 10/07/21 10/07/21 10/08/21 14:59 22:59 06:59 Other: Voiding Method Urinal Weight 95.254 kg 95.254 kg GENERAL: The patient is alert and oriented x3, not in any acute distress. Well developed, well nourished. HEENT: Pupils are round and equally reacting to light. EOMI. No scleral icterus. No conjunctival pallor. Normocephalic, atraumatic. No pharyngeal erythema. No thyromegaly. CARDIOVASCULAR: S1 and S2 present. No murmurs, rubs, or gallops. PULMONARY: Chest is clear to auscultation, no wheezing or crackles. ABDOMEN: Soft, nontender, nondistended, normoactive bowel sounds. No palpable organomegaly. MUSCULOSKELETAL: No joint swelling or deformity. -EXTREMITIES: No cyanosis, clubbing, or pedal edema. Left foot is deformed with signs of cellulitis and deep infection and tenderness NEUROLOGICAL: Gross neurological examination did not reveal any focal deficits. SKIN: No rashes. No petechiae Results CBC & Chem 7: 10/07/21 19:00 10/08/21 05:29 Labs: Abnormal Lab Results - Last 24 Hours (Table) 10/07/21 10/07/21 10/07/21 Range/Units 19:00 19:00 19:00 WBC 14.4 H (3.8-10.6) k/uL Plt Count 645 H (150-450) k/uL Neutrophils # 11.4 H (1.3-7.7) k/uL Sodium 132 L (137-145) mmol/L Potassium 6.1 H* (3.5-5.1) mmol/L Chloride 97 L (98-107) mmol/L BUN 21 H (9-20) mg/dL Glucose 212 H (74-99) mg/dL POC Glucose (mg/dL) (75-99) mg/dL Plasma Lactic Acid Juan 2.9 H* (0.7-2.0) mmol/L AST 71 H (17-59) U/L ALT 91 H (4-49) U/L Alkaline Phosphatase 153 H (38-126) U/L Urine Protein (Negative) Urine Glucose (UA) (Negative) 10/07/21 10/07/21 10/08/21 Range/Units 19:43 22:46 02:00 WBC (3.8-10.6) k/uL Plt Count (150-450) k/uL Neutrophils # (1.3-7.7) k/uL Sodium (137-145) mmol/L Potassium 5.5 H (3.5-5.1) mmol/L Chloride (98-107) mmol/L BUN (9-20) mg/dL Glucose (74-99) mg/dL POC Glucose (mg/dL) 176 H (75-99) mg/dL Plasma Lactic Acid Juan (0.7-2.0) mmol/L AST (17-59) U/L ALT (4-49) U/L Alkaline Phosphatase (38-126) U/L Urine Protein Trace H (Negative) Urine Glucose (UA) 4+ H (Negative) Thrombosis Risk Factor Assmnt - Choose All That Apply Each Factor Represents 1 point: Age 41-60 years, Obesity (BMI >25) Other Risk Factors: No Other congenital or acquired thrombophilia - If yes, enter type in comment: No Thrombosis Risk Factor Assessment Total Risk Factor Score: 2 Thrombosis Risk Factor Assessment Level: Low Risk Assessment and Plan Assessment: Diabetic left foot infection, with possible underlying osteomyelitis Sepsis with fever and leukocytosis, secondary to above charcot arthropathy Hyperkalemia, improved, keep monitoring Mildly elevated liver enzymes Hypertension Hyperlipidemia Diabetes mellitus Diabetic neuropathy History of sleep apnea Plan: this is a pleasant 45 years old male who presents with foot infection Continue with antibiotics and obtain cultures. Consult infectious disease team. Vascular surgery consult for possible debridement continue with normal saline , hold metoprolol and lisinopril for now Follow-up results for ESR, CRP Continue with insulin sliding scale and check hemoglobin A1c vascular surgery consult Labs and medication were reviewed.. Continue same treatment. Continue with symptomatic treatment. Resume home medication. Monitor lytes and vitals. DVT and GI prophylaxis. Further recommendations depends on the clinical course of the patient DVT prophylaxis: Subcutaneous heparin GI Prophylaxis: Pepcid PT/OT: Pending Prognosis is guarded
[2021-10-08 12:43] VITALS: BMI 28.5
[2021-10-08] MEDS ORDERED: IV FLUID CONTINUATION 1,000 ML IV ONE (15:15)
[2021-10-08 17:01] LABS: Glucose,Whole Blood 138 mg/dL (75-99)
[2021-10-08] MEDS ORDERED: ACETAMINOPHEN TAB 325 MG TAB PO STA (17:39)
[2021-10-08] MEDS ORDERED: IBUPROFEN 400 MG TAB PO PRN (17:40)
[2021-10-08 20:36] LABS: Glucose,Whole Blood 202 mg/dL (75-99)
[2021-10-08] MEDS: PRAVASTATIN SODIUM 20 MG TAB PO SCH (20:59)
[2021-10-08] MEDS: METOPROLOL TARTRATE 50 MG TAB PO SCH (22:48)
[2021-10-09] MEDS: VANCOMYCIN 1,500 MG in SODIUM CHLORIDE 0.9% 250 ML IVPB SCH ×3 (04:09→19:24)
[2021-10-09 06:54] LABS: Glucose,Whole Blood 190 mg/dL (75-99)
[2021-10-09] MEDS: HEPARIN SODIUM,PORCINE/PF 5,000 UNIT/0.5 ML SYRINGE SQ SCH ×2 (08:13→23:02)
[2021-10-09] MEDS: METOPROLOL TARTRATE 50 MG TAB PO SCH ×2 (08:13→17:26)
[2021-10-09] MEDS: INSULIN ASPART (NovoLOG) 100 UNIT/ML VIAL SQ SCH ×4 (08:13→23:02)
[2021-10-09] MEDS: FAMOTIDINE 20 MG/2 ML VIAL IV SCH (08:35)
[2021-10-09] MEDS: SODIUM CHLORIDE 0.9% 1,000 ML IV SCH (08:36)
[2021-10-09] MEDS ORDERED: VANCOMYCIN TROUGH DUE 1 EACH MISC MISCELLANE ONE (11:00)
[2021-10-09 11:28] LABS: Glucose,Whole Blood 250 mg/dL (75-99)
--- NOTE | 2021-10-09 12:47 | P.CONS ---
History of Present Illness - Reason for Consult Consult date: 10/08/21 Left diabetic foot infection Requesting physician: Richie Gonzalez - Chief Complaint Left foot wound and drainage times few weeks - History of Present Illness History of Present Illness : Patient is 45-year-old male with a past medical history significant for insulin-dependent is mellitus in this patient who did have a history of right diabetic foot infection requiring right below the knee amputation patient also have amputation of his left big toe patient apparently did develop a wound on the plantar aspect of his left foot for the patient has been following at [facility] symptoms started about 2 to 3 weeks ago, patient was noticed to have significant worsening of his wound with some purulent drainage for the patient was advised to go to the hospital for admission and antibiotic therapy patient did have diabetic neuropathy denies significant pain to the left foot area with occasional pressure-like sensation 3-4 out of 10 and had no radiation, patient on presentation the hospital did have a fever of 101.3 F patient did have white count of 14.4 with a left shift kidney function has been normal lactic acid was elevated CRP is elevated patient did have a CT of the foot with evidence of diffuse osseous erosion with deformity and chronic subluxation of the midfoot findings can be seen with Charcot arthropathy with overlying osteomyelitis bilateral excluded patient was started on vancomycin infectious was consulted for further management of antibiotic therapy patient is scheduled for OR this afternoon Review of system: CONSTITUTIONAL: Positive for weakness fever. EYES: No complaint. ENT: No complaint. RESPIRATORY: No complaint. CARDIOVASCULAR: No complaint. GENITOURINARY: No complaint. GASTROINTESTINAL: No complaint. MUSCULOSKELETAL: As per history of present illness. INTEGUMENTARY : As per history of present illness. PSYCHOLOGIC: No complaint. ENDOCRINE: No complaint. NEUROLOGIC: No complaint. Past medical history : Reviewed, documented below Past surgical history : Reviewed, documented below Social history: Reviewed, documented below Medications: Reviewed, as documented below EXAMINATION: Vital sigans= Reviewed and documented below GENERAL DESCRIPTION: Middle-aged male lying in bed, no distress. No tachypnea or accessory muscle of respiration use. HEENT: Shows Pallor , no scleral icterus. Oral mucous membrane is dry. NECK: Trachea central, no thyromegaly. LUNGS: Unlabored breathing. Clear to auscultation anteriorly. No wheeze or crackle. HEART: S1, S2, regular rate and rhythm. ABDOMEN: Soft, no tenderness , guarding or rigidity EXTREMITIES: Left foot plantar wound did have significant purulent drainage with significant maceration SKIN: No rash, no masses palpable. NEUROLOGICAL: The patient is awake, alert, oriented x3, mood and affect normal. LABS AND RADIOLOGY: Reviewed results see below Assessment : Patient admitted to hospital with sepsis sources left diabetic foot infection with infected ulcer on the plantar aspect with purulent drainage concerning for underlying deep abscess and osteomyelitis likely from MRSA in this patient did have previous culture positive for MRSA and did have a wound culture done in the outpatient setting on 09/30/2021 which was MRSA as well Plan: 1-vancomycin pharmacy to dose target trough of 15 while watching kidney function and vancomycin trough closely 2-await surgical debridement determine the extent of infection and deep culture 3-patient will likely need PICC line and outpatient antibiotic therapy We will follow on clinical condition and cultures to further adjust medication if needed Thank you for this consultation we will follow the patient along with you Past Medical History Past Medical History: Diabetes Mellitus, Hyperlipidemia, Hypertension, Neurologic Disorder, Sleep Apnea/CPAP/BIPAP Additional Past Medical History / Comment(s): neuropathy to feet, prior wound left toe-went to wound center for, no CPAP History of Any Multi-Drug Resistant Organisms: MRSA Year Discovered:: 12/22/20 MDRO Source:: Blood,FOOT Past Surgical History: Appendectomy, Orthopedic Surgery Additional Past Surgical History / Comment(s): vasectomy, left big toe amputated,right foot surgery, right leg amputation. Past Anesthesia/Blood Transfusion Reactions: No Reported Reaction Past Psychological History: No Psychological Hx Reported Additional Psychological History / Comment(s): Pt resides with his spouse and 2 children. He is independent. Smoking Status: Never smoker Past Alcohol Use History: None Reported Past Drug Use History: None Reported - Past Family History Brother(s) Additional Family Medical History / Comment(s): anxiety Father Family Medical History: COPD, Deep Vein Thrombosis (DVT), Hyperlipidemia, Hypertension Additional Family Medical History / Comment(s): PAD, PART OF LEG AMP Mother Family Medical History: Cancer, COPD, CVA/TIA, Diabetes Mellitus, Hypertension Additional Family Medical History / Comment(s): bipolar,anxiety,depression,smoking Medications and Allergies Home Medications Medication Instructions Recorded Confirmed Type Multivitamin [Multivitamins] 1 tab PO DAILY 12/19/13 10/07/21 History Dulaglutide [Trulicity] 0.75 mg SQ HARRELL 11/01/18 10/07/21 History lisinopriL 40 mg PO HS 12/21/20 10/07/21 History Meclizine HCl 25 mg PO QID PRN 10/07/21 10/07/21 History Metoprolol Tartrate [Lopressor] 50 mg PO BID-W/MEALS 10/07/21 10/07/21 History Pravastatin Sodium [Pravachol] 20 mg PO HS 10/07/21 10/07/21 History Allergies Allergy/AdvReac Type Severity Reaction Status Date / Time amlodipine [From Norvasc] Allergy Intermediate Rash/Hives Verified 10/08/21 15:17 amoxicillin trihydrate Allergy Rash/Hives Verified 10/08/21 15:17 [From Augmentin] ciprofloxacin [From Cipro] Allergy Unknown Verified 10/08/21 15:17 ciprofloxacin HCl Allergy Unknown Verified 10/08/21 15:17 [From Cipro] cyclobenzaprine HCl Allergy Rash/Hives Verified 10/08/21 15:17 [From Flexeril] potassium clavulanate Allergy Rash/Hives Verified 10/08/21 15:17 [From Augmentin] Physical Exam Vitals: Vital Signs Temp Pulse Pulse Resp BP BP Pulse Ox 10/08/21 08:51 95 10/08/21 08:02 98.1 F 104 H 16 124/73 100 10/08/21 02:30 98.0 F 89 17 107/69 98 10/07/21 22:51 98.8 F 117 H 16 111/68 95 10/07/21 22:00 114 H 18 113/71 99 10/07/21 21:49 114 H 18 93/58 97 10/07/21 21:40 101.3 F H 118 H 18 98 10/07/21 16:48 97.9 F 85 20 112/75 100 Intake and Output 10/07/21 10/08/21 10/08/21 22:59 06:59 14:59 Other: Voiding Method Urinal # Voids 2 Weight 95.254 kg 95.254 kg Results CBC & Chem 7: 10/07/21 19:00 10/08/21 05:29 Labs: Abnormal Lab Results - Last 24 Hours (Table) 10/07/21 10/07/21 10/07/21 Range/Units 19:00 19:00 19:00 WBC 14.4 H (3.8-10.6) k/uL Plt Count 645 H (150-450) k/uL Neutrophils # 11.4 H (1.3-7.7) k/uL Sodium 132 L (137-145) mmol/L Potassium 6.1 H* (3.5-5.1) mmol/L Chloride 97 L (98-107) mmol/L BUN 21 H (9-20) mg/dL BUN/Creatinine Ratio (12.00-20.00) Ratio Glucose 212 H (74-99) mg/dL POC Glucose (mg/dL) (75-99) mg/dL Plasma Lactic Acid Juan 2.9 H* (0.7-2.0) mmol/L Calcium (8.7-10.3) mg/dL AST 71 H (17-59) U/L ALT 91 H (4-49) U/L Alkaline Phosphatase 153 H (38-126) U/L C-Reactive Protein (0.00-0.80) mg/dL Urine Protein (Negative) Urine Glucose (UA) (Negative) 10/07/21 10/07/21 10/08/21 Range/Units 19:43 22:46 02:00 WBC (3.8-10.6) k/uL Plt Count (150-450) k/uL Neutrophils # (1.3-7.7) k/uL Sodium (137-145) mmol/L Potassium 5.5 H (3.5-5.1) mmol/L Chloride (98-107) mmol/L BUN (9-20) mg/dL BUN/Creatinine Ratio (12.00-20.00) Ratio Glucose (74-99) mg/dL POC Glucose (mg/dL) 176 H (75-99) mg/dL Plasma Lactic Acid Juan (0.7-2.0) mmol/L Calcium (8.7-10.3) mg/dL AST (17-59) U/L ALT (4-49) U/L Alkaline Phosphatase (38-126) U/L C-Reactive Protein (0.00-0.80) mg/dL Urine Protein Trace H (Negative) Urine Glucose (UA) 4+ H (Negative) 10/08/21 10/08/21 Range/Units 05:29 07:11 WBC (3.8-10.6) k/uL Plt Count (150-450) k/uL Neutrophils # (1.3-7.7) k/uL Sodium 134 L (137-145) mmol/L Potassium 5.7 H (3.5-5.1) mmol/L Chloride (98-107) mmol/L BUN (9-20) mg/dL BUN/Creatinine Ratio 20.43 H (12.00-20.00) Ratio Glucose 207 H (74-99) mg/dL POC Glucose (mg/dL) 186 H (75-99) mg/dL Plasma Lactic Acid Juan (0.7-2.0) mmol/L Calcium 8.4 L (8.7-10.3) mg/dL AST (17-59) U/L ALT (4-49) U/L Alkaline Phosphatase (38-126) U/L C-Reactive Protein 12.70 H (0.00-0.80) mg/dL Urine Protein (Negative) Urine Glucose (UA) (Negative)
--- NOTE | 2021-10-09 13:47 | P.CNOR ---
History of Present Illness - [facility] Consult date: 10/09/21 Consult reason: other (Left foot infection) History of present illness: This is a 45-year-old male with a history of type 2 diabetes with peripheral neuropathy, right below-knee amputation, bilateral Charcot arthropathy. Patient was admitted due to possible left foot infection. Patient states that prior to admission he developed extreme redness and swelling of the left foot. Soon thereafter a wound developed at the stump of where his great toe was amputated and began to drain copiously. Patient also experienced pain in the left foot when he normally does not have sensation. He denied any fevers while at home, however he was febrile upon admission. Since admission he's been afebrile. He also presented with leukocytosis. Review of Systems Constitutional: Denies chills, Denies fever Past Medical History Past Medical History: Diabetes Mellitus, Hyperlipidemia, Hypertension, Neurologic Disorder, Sleep Apnea/CPAP/BIPAP Additional Past Medical History / Comment(s): neuropathy to feet, prior wound left toe-went to wound center for, no CPAP History of Any Multi-Drug Resistant Organisms: MRSA Year Discovered:: 12/22/20 MDRO Source:: Blood,FOOT Past Surgical History: Appendectomy, Orthopedic Surgery Additional Past Surgical History / Comment(s): vasectomy, left big toe amputated,right foot surgery, right leg amputation. Past Anesthesia/Blood Transfusion Reactions: No Reported Reaction Past Psychological History: No Psychological Hx Reported Additional Psychological History / Comment(s): Pt resides with his spouse and 2 children. He is independent. Smoking Status: Never smoker Past Alcohol Use History: None Reported Past Drug Use History: None Reported - Past Family History Brother(s) Additional Family Medical History / Comment(s): anxiety Father Family Medical History: COPD, Deep Vein Thrombosis (DVT), Hyperlipidemia, H ypertension Additional Family Medical History / Comment(s): PAD, PART OF LEG AMP Mother Family Medical History: Cancer, COPD, CVA/TIA, Diabetes Mellitus, Hypertension Additional Family Medical History / Comment(s): bipo lar,anxiety,depression,smoking Medications and Allergies Home Medications Medication Instructions Recorded Confirmed Type Multivitamin [Multivitamins] 1 tab PO DAILY 12/19/13 10/07/21 History Dulaglutide [Trulicity] 0.75 mg SQ HARRELL 11/01/18 10/07/21 History lisinopriL 40 mg PO HS 12/21/20 10/07/21 History Meclizine HCl 25 mg PO QID PRN 10/07/21 10/07/21 History Metoprolol Tartrate [Lopressor] 50 mg PO BID-W/MEALS 10/07/21 10/07/21 History Pravastatin Sodium [Pravachol] 20 mg PO HS 10/07/21 10/07/21 History Allergies Allergy/AdvReac Type Severity Reaction Status Date / Time amlodipine [From Norvasc] Allergy Intermediate Rash/Hives Verified 10/08/21 15:17 amoxicillin trihydrate Allergy Rash/Hives Verified 10/08/21 15:17 [From Augmentin] ciprofloxacin [From Cipro] Allergy Unknown Verified 10/08/21 15:17 ciprofloxacin HCl Allergy Unknown Verified 10/08/21 15:17 [From Cipro] cyclobenzaprine HCl Allergy Rash/Hives Verified 10/08/21 15:17 [From Flexeril] potassium clavulanate Allergy Rash/Hives Verified 10/08/21 15:17 [From Augmentin] Physical Examination Osteopathic Statement: *. No significant issues noted on an osteopathic structural exam other than those noted in the History and Physical/Consult. - Ankle & Foot left Foot appearance: swelling (Mild edema left foot), other (There is a 0.6 x 0.6 cm wound on the distal aspect of the left foot at the hallux amputation site. The wound probes deep into the mid arch area. There is purulent drainage with expression of the medial soft tissues. No surrounding erythema. No followed her. Wound does not probe to bone.) Tenderness with palpation: none Tingling/Numbness: foot Foot alignment: other (Absence left great toe. Collapse of medial longitudinal arch) Results - Labs Labs: Abnormal Lab Results - Last 24 Hours (Table) 10/08/21 10/08/21 10/09/21 Range/Units 17:00 20:34 06:52 POC Glucose (mg/dL) 138 H 202 H 190 H (75-99) mg/dL 10/09/21 Range/Units 11:27 POC Glucose (mg/dL) 250 H (75-99) mg/dL Microbiology - Last 24 Hours (Table) 10/07/21 18:36 Blood Culture - Final Blood 10/07/21 18:20 Blood Culture Gram Stain - Preliminary Blood Blood Culture - Preliminary Staphylococcus aureus 10/07/21 18:36 Blood Culture Gram Stain - Preliminary Blood 10/07/21 18:20 Blood Culture - Final Blood H & H 10/07/21 Range/Units 19:00 Hgb 14.0 (13.0-17.5) gm/dL Hct 43.0 (39.0-53.0) % Coagulation 10/07/21 Range/Units 19:00 INR 1.0 (<1.2) Result Diagrams: 10/07/21 19:00 10/08/21 05:29 Assessment and Plan Assessment: 1. Pressure ulcer including muscle left foot 2. Charcot arthropathy left foot 3. Diabetes with peripheral neuropathy. 4. MRSA infection left foot Plan: At bedside the wound was probed with culture swabs to assess for the depth. At the same time due deep cultures were obtained. The soft tissue was expressed in the plantar surface foot where able to express about 5 mL of purulent material. Upon probing the wound there is no contact with the bony structures. Given that the patient is afebrile and that there is very little edema or erythema the left foot, surgery is not needed at this time. Recommendations are to pack silver alginate rope was deepened of the wound is possible to allowed to drain. Cultures indicated that there was a MRSA growth in the wound and the patient is currently on IV Vanco antibiotics. Recommend the current antibiotic therapy and follow-up with the Barbara. Due to the patient's foot deformity I recommended they also follow up with me in my office so that we can more accurately assess him for a custom-made shoe and insole to accommodate his left foot deformity. We did discuss Charcot arthropathy, it is my recommendation that the patient not consider any type of reconstructive surgery of the left foot given his prior history. I feel that his foot is plantigrade and we will be O to work with it utilizing custom shoes and insoles to prevent further ulceration.
[2021-10-09 14:13] LABS: Estimated Average Glucose UNC
[2021-10-09 16:39] LABS: Glucose,Whole Blood 158 mg/dL (75-99)
[2021-10-09 21:00] LABS: Glucose,Whole Blood 214 mg/dL (75-99)
[2021-10-09 22:33] LABS: African American GFR (CKD) >90 (>60 ml/min/1.73 sqM); Anion Gap 5 mmol/L; Blood Urea Nitrogen 10 mg/dL (9-20); Calcium 8.8 mg/dL (8.4-10.2); Carbon Dioxide 24 mmol/L (22-30); Chloride 103 mmol/L (98-107); Glucose 216 mg/dL (74-99); Non-African American GFR(CKD) >90 (>60 ml/min/1.73 sqM); Potassium 4.3 mmol/L (3.5-5.1); Sodium 132 mmol/L (137-145)
[2021-10-09] MEDS: FAMOTIDINE 20 MG TAB PO SCH (23:02)
[2021-10-09] MEDS: PRAVASTATIN SODIUM 20 MG TAB PO SCH (23:03)
--- NOTE | 2021-10-09 23:22 | P.PN ---
Progress Note - Text Progress Note Date: 10/09/21 Hospital course: This is a pleasant 45 years old male with past medical history of Diabetes Melli tus, Hyperlipidemia, Hypertension, diabetic neuropathy Disorder, Sleep Apnea/CPAP/BIPAP At home he is on total lucidity 0.75 mg subcutaneous. Patient brought from wound center for left foot diabetic infection. Patient states that 4 weeks and a half ago he was following up with the wound center because his toe was open. This time he is been told he needs to come to emergency room He denies leg pain or warmth or redness. No other complaints, no chest pain or dyspnea. No change in urine or bowel habits. He has fever on admission He denies smoking, alcohol or illicit drugs Vitas looks stable, patient is afebrile but on admission he had a fever of 101.3. Heart rate is controlled, Lap showing leukocytosis of 14.4, INR 1.1, creatinine 0.7, potassium 6.1, came back to 5.5. Lactic acid elevated 2.9 came back to normal 1.4, liver enzymes AST 71 and ALT 91 slightly elevated, bilirubin is normal 0.9 Urine analysis showed glucosuria with no infection. Coronavirus not detected. CT of the foot: Diffuse osseous erosions with deformity and chronic subluxation of the mid foot finding could be seen with charcot arthropathy. With multiple foci of gas involving the cuboidbone , concerning for osteomyelitis. Which are new findings EKG showed supraventricular rhythm at 90 BPM. QTC 388 Emergency room patient was started on IV vancomycin and 1 dose of Rocephin as well as IV fluids October 09: Discussed with the patient. Dr. Calvo had seen the patient. Has also suggested possible amputation. Orthopedics consulted. They did get some purulent material. Recommended to continue antibiotics and follow up in the office. Patient IV vancomycin. Not much pain Active Medications Famotidine (Famotidine 20 Mg Tab) 20 mg PO BID [facility] Heparin Sodium (Porcine) (Heparin Sodium,Porcine/Pf 5,000 Unit/0.5 Ml Syringe) 5,000 unit SQ Q12HR [facility] Last Admin: 10/09/21 08:13 Dose: 5,000 unit Documented by: Vancomycin HCl 1,500 mg/ (Sodium Chloride) 250 mls @ 125 mls/hr IVPB Q8H [facility] Last Admin: 10/09/21 19:24 Dose: 125 mls/hr Documented by: Sodium Chloride (Saline 0.9%) 1,000 mls @ 75 mls/hr IV .[id number] [facility] Last Admin: 10/09/21 08:36 Dose: 75 mls/hr Documented by: Ibuprofen (Ibuprofen 400 Mg Tab) 400 mg PO Q8HR PRN PRN Reason: Pain Last Admin: 10/08/21 21:00 Dose: 400 mg Documented by: Insulin Aspart (Insulin Aspart (Novolog) 100 Unit/Ml Vial) 0 unit SQ [facility]; Protocol Last Admin: 10/09/21 17:26 Dose: 1 unit Documented by: Meclizine HCl (Meclizine 25 Mg Tab) 25 mg PO QID PRN PRN Reason: Vertigo Metoprolol Tartrate (Metoprolol Tartrate 50 Mg Tab) 50 mg PO BID-W/MEALS [facility] Last Admin: 10/09/21 17:26 Dose: 50 mg Documented by: Pravastatin Sodium (Pravastatin Sodium 20 Mg Tab) 20 mg PO HS [facility] Last Admin: 10/08/21 20:59 Dose: 20 mg Documented by: On examination: VITAL SIGNS: [97.8, 88, 18, 157/98, 97% room air] GENERAL APPEARANCE: Reclining in bed, awake, comfortable. HEENT: Normal external appearance of nose and ear. Oral cavity normal EYES: Pupils equal. Conjunctiva normal. NECK: JVD not raised. Mass not palpable. RESPIRATORY: Respiratory effort normal. Lungs clear to auscultation. CARDIOVASCULAR: First and second sounds normal. No edema. ABDOMEN: Soft. Liver and spleen not palpable. No tenderness. No mass palpable. PSYCHIATRY: Alert and oriented x3. Mood and affect normal. EXTREMITY: Left foot in a dressing INVESTIGATIONS, reviewed in the clinical context: October 09: Potassium 4.3 ESR 81 sodium 134 creatinine 0.7 CRP 12.7 Blood culture [October 07]: MRSA Assessment and plan: -Diabetic left foot, possibly Charcot, infection, with possible underlying osteomyelitis IV vancomycin. Being followed by vascular and orthopedics -Sepsis positive blood culture for MRSA IV vancomycin -Left foot charcot arthropathy -Hyperkalemia,: Corrected Follow labs Hypertension Lopressor 50 mg twice a day. Hold lisinopril because of hyperkalemia Hyperlipidemia Pravachol 20 mg daily at bedtime Diabetes mellitus, type II Follow Accu-Cheks with sliding scale. On Trulicity at home Diabetic peripheral neuropathy Continue IV vancomycin. Patient been followed by vascular orthopedics and ID. Other medications to continue. Discussed with the patient.
[2021-10-10] MEDS: SODIUM CHLORIDE 0.9% 1,000 ML IV SCH ×3 (03:44→19:11)
[2021-10-10] MEDS: VANCOMYCIN 1,500 MG in SODIUM CHLORIDE 0.9% 250 ML IVPB SCH ×3 (03:44→19:11)
[2021-10-10 06:48] LABS: Glucose,Whole Blood 184 mg/dL (75-99)
[2021-10-10 07:19] LABS: African American GFR (CKD) >90 (>60 ml/min/1.73 sqM); Non-African American GFR(CKD) >90 (>60 ml/min/1.73 sqM)
[2021-10-10] MEDS: HEPARIN SODIUM,PORCINE/PF 5,000 UNIT/0.5 ML SYRINGE SQ SCH ×2 (08:16→20:52)
[2021-10-10] MEDS: FAMOTIDINE 20 MG TAB PO SCH ×2 (08:16→20:52)
[2021-10-10] MEDS: INSULIN ASPART (NovoLOG) 100 UNIT/ML VIAL SQ SCH ×4 (08:16→20:52)
[2021-10-10] MEDS: METOPROLOL TARTRATE 50 MG TAB PO SCH ×2 (08:16→17:14)
[2021-10-10] MEDS ORDERED: LIDOCAINE 1% INJ 10MG/ML (20 ML MDV) ONE (10:38)
[2021-10-10] MEDS ORDERED: LIDOCAINE 1% INJ 10MG/ML (20 ML MDV) SQ ONE (11:08)
[2021-10-10 11:33] LABS: Glucose,Whole Blood 171 mg/dL (75-99)
--- NOTE | 2021-10-10 13:37 | IR ---
EXAMINATION TYPE: IR cvc insert >=5 years DATE OF EXAM: 10/10/2021 COMPARISON: NONE CLINICAL HISTORY: Infection Needs long-term intravenous access for antibiotics. PROCEDURE: Hand hygiene obtained with soap and water and alcohol-based hand rub. After informed consent, the skin overlying the right basilic vein was localized with ultrasound and n oted to be compressible and patent. An ultrasound image was obtained and submitted on the patient's chart. The overlying skin was prepped and draped and Lidocaine was used for local anesthesia. A ski n mikhail was made with a scalpel. Access was gained to the vein under ultrasound guidance with a 21 ga uge needle and a 0.018 inch wire was advanced. Access site was dilated with Peel-Away sheath and cat heter tailored to the appropriate length and advanced such that the distal tip is at the cavoatrial j unction. Spot image was obtained verifying placement. Catheter was fixed to the skin and a sterile dressing was placed following hemostasis. Catheter was aspirated and flushed with saline. Patient w as discharged in stable condition without complication.Maximal barrier technique is utilized. Ultras ound image is documented on the chart. Ultrasound used with sterile technique. Fluoro time and fluoroscopic images submitted to document procedure: 0.3 minutes fluoroscopy time, 62 intraoperative images document the procedure IMPRESSION: STATUS POST ULTRASOUND AND FLUOROSCOPIC GUIDED PICC LINE PLACEMENT, READY FOR USE. THIS PROCEDURE WAS PERFORMED BY THE UNDERSIGNED.
[2021-10-10 16:36] LABS: Glucose,Whole Blood 169 mg/dL (75-99)
--- NOTE | 2021-10-10 20:10 | P.PN ---
Progress Note - Text Progress Note Date: 10/10/21 Hospital course: This is a pleasant 45 years old male with past medical history of Diabetes Ernee itus, Hyperlipidemia, Hypertension, diabetic neuropathy Disorder, Sleep Apnea/CPAP/BIPAP At home he is on total lucidity 0.75 mg subcutaneous. Patient brought from wound center for left foot diabetic infection. Patient states that 4 weeks and a half ago he was following up with the wound center because his toe was open. This time he is been told he needs to come to emergency room He denies leg pain or warmth or redness. No other complaints, no chest pain or dyspnea. No change in urine or bowel habits. He has fever on admission He denies smoking, alcohol or illicit drugs Vitas looks stable, patient is afebrile but on admission he had a fever of 101.3. Heart rate is controlled, Lap showing leukocytosis of 14.4, INR 1.1, creatinine 0.7, potassium 6.1, came back to 5.5. Lactic acid elevated 2.9 came back to normal 1.4, liver enzymes AST 71 and ALT 91 slightly elevated, bilirubin is normal 0.9 Urine analysis showed glucosuria with no infection. Coronavirus not detected. CT of the foot: Diffuse osseous erosions with deformity and chronic subluxation of the mid foot finding could be seen with charcot arthropathy. With multiple foci of gas involving the cuboidbone , concerning for osteomyelitis. Which are new findings EKG showed supraventricular rhythm at 90 BPM. QTC 388 Emergency room patient was started on IV vancomycin and 1 dose of Rocephin as well as IV fluids October 09: Discussed with the patient. Dr. Calvo had seen the patient. Has also suggested possible amputation. Orthopedics consulted. They did get some purulent material. Recommended to continue antibiotics and follow up in the office. Patient IV vancomycin. Not much pain October 10: As dressing in place from yesterday. Some discharge. Getting IV antibiotics. PICC line was placed. Active Medications Famotidine (Famotidine 20 Mg Tab) 20 mg PO BID [facility] Last Admin: 10/10/21 08:16 Dose: 20 mg Documented by: Heparin Sodium (Porcine) (Heparin Sodium,Porcine/Pf 5,000 Unit/0.5 Ml Syringe) 5,000 unit SQ Q12HR [facility] Last Admin: 10/10/21 08:16 Dose: 5,000 unit Documented by: Vancomycin HCl 1,500 mg/ (Sodium Chloride) 250 mls @ 125 mls/hr IVPB Q8H [facility] Last Admin: 10/10/21 19:11 Dose: 125 mls/hr Documented by: Sodium Chloride (Saline 0.9%) 1,000 mls @ 75 mls/hr IV .[id number] [facility] Last Admin: 10/10/21 19:11 Dose: 75 mls/hr Documented by: Ibuprofen (Ibuprofen 400 Mg Tab) 400 mg PO Q8HR PRN PRN Reason: Pain Last Admin: 10/08/21 21:00 Dose: 400 mg Documented by: Insulin Aspart (Insulin Aspart (Novolog) 100 Unit/Ml Vial) 0 unit SQ ACHS [facility]; Protocol Last Admin: 10/10/21 17:15 Dose: 2 unit Documented by: Meclizine HCl (Meclizine 25 Mg Tab) 25 mg PO QID PRN PRN Reason: Vertigo Metoprolol Tartrate (Metoprolol Tartrate 50 Mg Tab) 50 mg PO BID-W/MEALS [facility] Last Admin: 10/10/21 17:14 Dose: 50 mg Documented by: Pravastatin Sodium (Pravastatin Sodium 20 Mg Tab) 20 mg PO HS [facility] Last Admin: 10/09/21 23:03 Dose: 20 mg Documented by: Sodium Chloride (Sodium Chloride 0.9% Flush 10 Ml Syringe) 10 ml IV Q4HR PRN PRN Reason: PICC Line Sodium Chloride (Sodium Chloride 0.9% Flush 10 Ml Syringe) 10 ml IV WEEKLY [facility] Sodium Chloride (Sodium Chloride 0.9% Flush 10 Ml Syringe) 20 ml IV Q4HR PRN PRN Reason: PICC Line On examination: VITAL SIGNS: 98.4, 86, 18, 122/73, 96% room air GENERAL APPEARANCE: Reclining in bed, awake, comfortable. HEENT: Normal external appearance of nose and ear. Oral cavity normal EYES: Pupils equal. Conjunctiva normal. NECK: JVD not raised. Mass not palpable. RESPIRATORY: Respiratory effort normal. Lungs clear to auscultation. CARDIOVASCULAR: First and second sounds normal. No edema. ABDOMEN: Soft. Liver and spleen not palpable. No tenderness. No mass palpable. PSYCHIATRY: Alert and oriented x3. Mood and affect normal. EXTREMITY: Left foot in a dressing INVESTIGATIONS, reviewed in the clinical context: October 09: Potassium 4.3 ESR 81 sodium 134 creatinine 0.7 CRP 12.7 Blood culture [October 09]: Pending Blood culture [October 07]: MRSA Assessment and plan: -Diabetic left foot, possibly Charcot, infection, with probable underlying osteo myelitis, MRSA: Slow to respond IV vancomycin. Being followed by vascular and orthopedics -Sepsis positive blood culture for MRSA IV vancomycin -Left foot charcot arthropathy -Hyperkalemia,: Corrected Follow labs Hypertension Lopressor 50 mg twice a day. Hold lisinopril because of hyperkalemia Hyperlipidemia Pravachol 20 mg daily at bedtime Diabetes mellitus, type II Follow Accu-Cheks with sliding scale. On Trulicity at home Diabetic peripheral neuropathy IV vancomycin. PICC line placed today Other medications to continue. Discussed with the patient.
[2021-10-10 20:42] LABS: Glucose,Whole Blood 218 mg/dL (75-99)
[2021-10-10] MEDS: PRAVASTATIN SODIUM 20 MG TAB PO SCH (20:52)
[2021-10-11] MEDS: VANCOMYCIN 1,500 MG in SODIUM CHLORIDE 0.9% 250 ML IVPB SCH ×2 (04:06→12:36)
[2021-10-11 06:53] LABS: Glucose,Whole Blood 183 mg/dL (75-99)
[2021-10-11] MEDS: INSULIN ASPART (NovoLOG) 100 UNIT/ML VIAL SQ SCH ×2 (08:59→12:36)
[2021-10-11] MEDS: HEPARIN SODIUM,PORCINE/PF 5,000 UNIT/0.5 ML SYRINGE SQ SCH (09:00)
[2021-10-11] MEDS: METOPROLOL TARTRATE 50 MG TAB PO SCH (09:00)
[2021-10-11] MEDS: FAMOTIDINE 20 MG TAB PO SCH (09:00)
--- NOTE | 2021-10-11 09:59 | P.PN ---
Subjective Progress Note Date: 10/09/21 Principal diagnosis: Left diabetic foot infection Patient is a 45-year-old male admitted to the hospital with left foot abscess and cellulitis and concern for underlying osteomyelitis patient did have a positive culture with MRSA in the outpatient setting from the local wound and blood culture positive for MRSA as well, vascular surgery recommended against any further drainage procedure at this point. On today's evaluation that is 10/09/2021, the patient overall fever pattern has improved, the patient denies having any chest pain shortness of breath or cough no nausea no vomiting no abdominal pain or any worsening pain to the left foot Objective - Vital Signs Vital signs: Vital Signs Temp 98.3 F 10/09/21 08:00 Pulse 76 10/09/21 08:00 Resp 17 10/09/21 08:00 BP 108/71 10/09/21 08:00 Pulse Ox 95 10/09/21 09:49 Intake & Output 10/08/21 10/09/21 10/09/21 18:59 06:59 18:59 Intake Total 100 Output Total 1500 Balance 100 -1500 Weight 95.254 kg Intake: IV 100 Output: Urine 1500 Other: Voiding Method Urinal Urinal # Voids 1 # Bowel Movements 1 - Exam GENERAL DESCRIPTION: A middle-aged male lying in bed in no distress RESPIRATORY SYSTEM: Unlabored breathing , decreased breath sounds at bases HEART: S1 S2 regular rate and rhythm , ABDOMEN: Soft , no tenderness EXTREMITIES: Left foot plantar wound is currently dressed with the drainage on the dressing - Labs CBC & Chem 7: 10/07/21 19:00 10/10/21 06:24 Labs: Abnormal Lab Results - Last 24 Hours (Table) 10/08/21 10/08/21 10/08/21 Range/Units 05:29 17:00 20:34 ESR 81 H (0-15) mm/Hr POC Glucose (mg/dL) 138 H 202 H (75-99) mg/dL 10/09/21 10/09/21 Range/Units 06:52 11:27 ESR (0-15) mm/Hr POC Glucose (mg/dL) 190 H 250 H (75-99) mg/dL Microbiology - Last 24 Hours (Table) 10/07/21 18:36 Blood Culture - Final Blood 10/07/21 18:20 Blood Culture Gram Stain - Preliminary Blood Blood Culture - Preliminary Staphylococcus aureus 10/07/21 18:36 Blood Culture Gram Stain - Preliminary Blood 10/07/21 18:20 Blood Culture - Final Blood Assessment and Plan (1) Infected wound Current Visit: Yes Status: Acute Code(s): T14.8XXA - OTHER INJURY OF UNSPECIFIED BODY REGION, INITIAL ENCOUNTER; L08.9 - LOCAL INFECTION OF THE SKIN AND SUBCUTANEOUS TISSUE, UNSP SNOMED Code(s): 19243576 (2) Wound of left foot Current Visit: Yes Status: Acute Code(s): S91.302A - UNSPECIFIED OPEN WOUND, LEFT FOOT, INITIAL ENCOUNTER SNOMED Code(s): 738607733 Plan: 1-Patient with admission to the hospital with left diabetic foot wound on a respirator concerning for underlyingOsteomyelitis in this patient with MRSA bacteremia and local culture positive for MRSA, patient may benefit from further surgical drainage to decrease the burden of infection however vascular surgery recommended against it. 2-Vancomycin pharmacy to dose target trough of 15 while watching kidney function and Vanco trough closely 3-PICC line once repeat blood cultures negative for outpatient IV antibiotics
--- NOTE | 2021-10-11 10:00 | P.PN ---
Subjective Progress Note Date: 10/10/21 Principal diagnosis: Left diabetic foot infection Patient is a 45-year-old male admitted to the hospital with left foot abscess and cellulitis and concern for underlying osteomyelitis patient did have a positive culture with MRSA in the outpatient setting from the local wound and blood culture positive for MRSA as well, vascular surgery recommended against any further drainage procedure at this point. On today's evaluation that is 10/10/2021, the patient is afebrile, the patient denies having any chest pain shortness of breath or cough no nausea no vomiting no abdominal pain or any worsening pain to the left foot Objective - Vital Signs Vital signs: Vital Signs Temp 98.6 F 10/10/21 20:00 Pulse 98 10/10/21 20:00 Resp 16 10/10/21 20:00 BP 133/80 10/10/21 20:00 Pulse Ox 96 10/10/21 20:55 Intake & Output 10/10/21 10/10/21 10/11/21 06:59 18:59 06:59 Output Total 1 1 Balance -1 -1 Output: Stool 1 1 Other: Voiding Method Urinal Urinal # Voids 3 6 - Exam GENERAL DESCRIPTION: A middle-aged male lying in bed in no distress RESPIRATORY SYSTEM: Unlabored breathing , decreased breath sounds at bases HEART: S1 S2 regular rate and rhythm , ABDOMEN: Soft , no tenderness EXTREMITIES: Left foot plantar wound is currently dressed with the drainage on the dressing - Labs CBC & Chem 7: 10/07/21 19:00 10/10/21 06:24 Labs: Abnormal Lab Results - Last 24 Hours (Table) 10/10/21 10/10/21 10/10/21 Range/Units 06:24 06:47 11:30 Creatinine 0.57 L (0.66-1.25) mg/dL POC Glucose (mg/dL) 184 H 171 H (75-99) mg/dL 10/10/21 10/10/21 Range/Units 16:35 20:40 Creatinine (0.66-1.25) mg/dL POC Glucose (mg/dL) 169 H 218 H (75-99) mg/dL Microbiology - Last 24 Hours (Table) 10/07/21 18:36 Blood Culture Gram Stain - Final Blood Blood Culture - Final Methicillin resist S. aureus 10/07/21 18:20 Blood Culture Gram Stain - Final Blood Blood Culture - Final Methicillin resist S. aureus 10/09/21 10:14 Blood Culture - Preliminary Blood No Growth after 24 hours 10/09/21 13:30 Gram Stain - Preliminary Toe - Left First Wound Culture - Preliminary Assessment and Plan (1) Infected wound Current Visit: Yes Status: Acute Code(s): T14.8XXA - OTHER INJURY OF UNSPECIFIED BODY REGION, INITIAL ENCOUNTER; L08.9 - LOCAL INFECTION OF THE SKIN AND SUBCUTANEOUS TISSUE, UNSP SNOMED Code(s): 85981227 (2) Wound of left foot Current Visit: Yes Status: Acute Code(s): S91.302A - UNSPECIFIED OPEN WOUND, LEFT FOOT, INITIAL ENCOUNTER SNOMED Code(s): 459179041 Plan: 1-Patient with admission to the hospital with left diabetic foot wound on a respirator concerning for underlyingOsteomyelitis in this patient with MRSA bacteremia and local culture positive for MRSA, patient may benefit from further surgical drainage to decrease the burden of infection however vascular surgery recommended against it. 2-Vancomycin pharmacy to dose target trough of 15 while watching kidney function and Vanco trough closely 3-PICC line has already been placed, it the follow-up blood culture remains to be negative may be able to go home on IV vancomycin tomorrow
[2021-10-11 11:09] LABS: Glucose,Whole Blood 182 mg/dL (75-99)
[2021-10-11] MEDS: SODIUM CHLORIDE 0.9% 1,000 ML IV SCH (11:31)
--- NOTE | 2021-10-11 13:06 | PN ---
PROGRESS NOTE This 45-year-old gentleman is well known to me. He has a history of diabetes, post right BKA. Patient had his left foot big toe removed in the past. The patient has a CT scan which shows Charcot foot. Patient had an opinion from Orthopedic Surgery who recommended we treat the infection. Patient is under the care of Infectious Disease, on IV antibiotic. The blood culture came back negative. The patient has a PICC line for long-term antibiotic. We have also talked about the hyperbaric chamber. Patient goes home today. Will follow up in the wound clinic. MMODL / IJN: [id number] /
[2021-10-11 15:03] VITALS: BP 121/67; PULSE 81; RESP 17; TEMP 98.6
--- NOTE | 2021-10-11 16:47 | P.DS ---
Providers Date of admission: 10/07/21 19:36 Expected date of discharge: 10/11/21 Attending physician: David Ledbetter Consults: 10/07/21 19:35 Consult Physician Urgent Consulting Provider: Richie Gonzalez Consult Reason/Comments: Wound left foot Do you want consulting provider notified?: Yes Consult Physician Urgent Consulting Provider: Rajeev Chery Consult Reason/Comments: Infected wound left foot Do you want consulting provider notified?: Yes 10/09/21 07:01 Consult Physician Routine Consulting Provider: Adeel Jaramillo Consult Reason/Comments: left foot wound Do you want consulting provider notified?: Yes Primary care physician: [facility] Course: Hospital course: This is a pleasant 45 years old male with past medical history of Diabetes Mellitus, Hyperlipidemia, Hypertension, diabetic neuropathy Disorder, Sleep Apnea/CPAP/BIPAP At home he is on total lucidity 0.75 mg subcutaneous. Patient brought from wound center for left foot diabetic infection. Patient states that 4 weeks and a half ago he was following up with the wound center because his toe was open. This time he is been told he needs to come to emergency room He denies leg pain or warmth or redness. No other complaints, no chest pain or dyspnea. No change in urine or bowel habits. He has fever on admission He denies smoking, alcohol or illicit drugs Vitas looks stable, patient is afebrile but on admission he had a fever of 101.3. Heart rate is controlled, Lap showing leukocytosis of 14.4, INR 1.1, creatinine 0.7, potassium 6.1, came back to 5.5. Lactic acid elevated 2.9 came back to normal 1.4, liver enzymes AST 71 and ALT 91 slightly elevated, bilirubin is normal 0.9 Urine analysis showed glucosuria with no infection. Coronavirus not detected. CT of the foot: Diffuse osseous erosions with deformity and chronic subluxation of the mid foot finding could be seen with charcot arthropathy. With multiple foci of gas involving the cuboidbone , concerning for osteomyelitis. Which are new findings EKG showed supraventricular rhythm at 90 BPM. QTC 388 Emergency room patient was started on IV vancomycin and 1 dose of Rocephin as well as IV fluids October 09: Discussed with the patient. Dr. Calvo had seen the patient. Has also suggested possible amputation. Orthopedics consulted. They did get some purulent material. Recommended to continue antibiotics and follow up in the office. Patient IV vancomycin. Not much pain October 10: As dressing in place from yesterday. Some discharge. Getting IV antibiotics. PICC line was placed. October 11: Spoke with patient at length. After discussing with Dr. Vargas from ID. Looks unlikely that the foot with heel given the Charcot foot. Trial of antibiotics will be done. He will follow-up with orthopedics and Dr. Calvo. PICC line was placed. Vancomycin is being arranged. Questions answered. Weekly labs Discussion and discharge planning more than 35 minutes On examination: VITAL SIGNS: 98.6, 81, 17, 121/67, 95% room air GENERAL APPEARANCE: Reclining in bed, awake, comfortable. HEENT: Normal external appearance of nose and ear. Oral cavity normal EYES: Pupils equal. Conjunctiva normal. NECK: JVD not raised. Mass not palpable. RESPIRATORY: Respiratory effort normal. Lungs clear to auscultation. CARDIOVASCULAR: First and second sounds normal. No edema. ABDOMEN: Soft. Liver and spleen not palpable. No tenderness. No mass palpable. PSYCHIATRY: Alert and oriented x3. Mood and affect normal. EXTREMITY: Left foot in a dressing INVESTIGATIONS, reviewed in the clinical context: October 09: Potassium 4.3 ESR 81 sodium 134 creatinine 0.7 CRP 12.7 Blood culture [October 09]: Pending Blood culture [October 07]: MRSA Assessment and plan: -Diabetic left foot, Charcot, infection, with acute osteomyelitis, MRSA: Slow to respond IV vancomycin. Being followed by vascular and orthopedics -Sepsis positive blood culture for MRSA IV vancomycin -Left foot charcot arthropathy -Hyperkalemia,: Corrected Follow labs -Essential Hypertension Lopressor 50 mg twice a day. Hold lisinopril because of hyperkalemia -Hyperlipidemia Pravachol 20 mg daily at bedtime -Diabetes mellitus, type II Follow Accu-Cheks with sliding scale. On Trulicity at home -Diabetic peripheral neuropathy Disposition: Home Plan - Discharge Summary Discharge Rx Participant: No New Discharge Prescriptions: New Famotidine [Pepcid] 20 mg PO BID #60 tab Continue Multivitamin [Multivitamins] 1 tab PO DAILY Dulaglutide [Trulicity] 0.75 mg SQ HARRELL Pravastatin Sodium [Pravachol] 20 mg PO HS Metoprolol Tartrate [Lopressor] 50 mg PO BID-W/MEALS Discontinued Meclizine HCl 25 mg PO QID PRN PRN Reason: Vertigo No Action lisinopriL 40 mg PO HS Discharge Medication List Multivitamin [Multivitamins] 1 tab PO DAILY 12/19/13 [History] Dulaglutide [Trulicity] 0.75 mg SQ HARRELL 11/01/18 [History] lisinopriL 40 mg PO HS 12/21/20 [History] Metoprolol Tartrate [Lopressor] 50 mg PO BID-W/MEALS 10/07/21 [History] Pravastatin Sodium [Pravachol] 20 mg PO HS 10/07/21 [History] Famotidine [Pepcid] 20 mg PO BID #60 tab 10/11/21 [Rx] Follow up Appointment(s)/Referral(s): Andreas Hutson MD [Primary Care Provider] - 1-2 days (office is closed at time of discahrge. Please call to schedule appointment ) [facility], [NON-STAFF] - As Needed [facility] [NON-STAFF] - As Needed Richie Gonzalez MD [STAFF PHYSICIAN] - 10/24/21 11:00 am Rajeev Chery MD [STAFF PHYSICIAN] - 2 Weeks (office is closed Please call to schedule appointment ) Activity/Diet/Wound Care/Special Instructions: weekly cbc/bmp abx per dr chery Discharge Disposition: HOME SELF-CARE
[2021-10-12] MEDS ORDERED: VANCOMYCIN TROUGH DUE 1 EACH MISC MISCELLANE ONE (11:00)
--- NOTE | 2021-10-14 13:47 | CDI ---
Documentation Clarification Form Date: 10/18/21 From: Alyssia Marinelli Admit Date: 10/07/2021 07:36:00 PM Patient Name: Carlo Clay Visit Number: [id number] Discharge Date: 10/11/2021 04:19:00 PM ATTENTION: The Clinical Documentation Specialists (CDI) and [facility] Coding Staff appreciate your assistance in clarifying documentation. Please respond to the clarification below the line at the bottom and electronically sign. The CDI & [facility] Coding staff will review the response and follow-up if needed. Please note: Queries are made part of the Legal Health Record. If you have any questions, please contact the author of this message via ITS. Dr. Adeel Jaramillo, A pressure ulcer of left foot muscle is documented in your consult. Additional clarification regarding the stage of the pressure ulcer is requested. History/Risk Factors: s/p amputation of left great toe, right BKA, Charcot's arthropathy, DM peripheral polyneuropathy Clinical Indicators: Pt arrives with c/o nonhealing sore to where his left big toe was amputated, pt was being treated at wound center where the redressed wound and sent him down to ED for further evaluation per wound assessment. Per your consult: a wound developed at the stump of where his great toe was amputated and began to drain copiously. Wound description: Ankle Foot left Foot appearance: swelling (Mild edema left foot), other (There is a 0.6 x 0.6 cm wound on the distal aspect of the left foot at the hallux amputation site. The wound probes deep into the mid arch area. There is purulent drainage with expression of the medial soft tissues. No surrounding erythema. No followed her. Wound does not probe to bone. Tenderness with palpation: none Tingling/Numbness: Foot alignment: other (Absence left great toe. Collapse of medial longitudinal arch) Location: left foot Treatment: IV Antibiotics, PICC line placed to IV antibiotics post discharge Please clarify the stage of pressure ulcer left foot, if known: [ ] Deep tissue injury left foot [ ] Stage 1 Pressure Ulcer left foot [ ] Stage 2 Pressure Ulcer left foot [ ] Stage 3 Pressure Ulcer left foot [ ] Stage 4 Pressure Ulcer left foot [ ] Other condition, please specify [ ] Unable to determine Clinical Definitions: Stage 1 Pressure Ulcer: intact skin, non-blanching redness of local area Stage 2 Pressure Ulcer: Partial thickness, loss of dermis, pink wound bed Stage 3 Pressure Ulcer: Full thickness tissue loss Stage 4 Pressure Ulcer: Full thickness tissue loss with exposed bone, tendon, or muscle. Unstageable pressure ulcer: Full thickness tissue loss in which the base of the ulcer is covered by slough (yellow, haynes, dupree, green or brown) and/or eschar (haynes, brown or black) in the wound bed. I reviewed the chart. The diagnosis failed to add "non-" to the ulcer code. So this is a non-pressure ulcer of the foot, NOT a pressure ulcer. I added an addendum to the original note to reflect this change MTDD
--- NOTE | 2021-10-18 22:34 | P.PN ---
Subjective Progress Note Date: 10/11/21 Principal diagnosis: Left diabetic foot infection Patient is a 45-year-old male admitted to the hospital with left foot abscess and cellulitis and concern for underlying osteomyelitis patient did have a positive culture with MRSA in the outpatient setting from the local wound and blood culture positive for MRSA as well, vascular surgery recommended against any further drainage procedure at this point. On today's evaluation that is 10/11/2021, the patient remains to be afebrile, the patient denies having any chest pain shortness of breath or cough, the patient denies nausea no vomiting no abdominal pain or any worsening pain to the left foot Objective - Vital Signs Vital signs: Vital Signs Temp 98.7 F 10/11/21 07:27 Pulse 82 10/11/21 07:27 Resp 19 10/11/21 07:27 BP 128/76 10/11/21 07:27 Pulse Ox 96 10/11/21 07:27 Intake & Output 10/10/21 10/11/21 10/11/21 18:59 06:59 18:59 Intake Total 180 Output Total 1 1 750 Balance -1 -1 -570 Intake: Oral 180 Output: Urine 750 Stool 1 1 Other: Voiding Method Urinal # Voids 6 4 - Exam GENERAL DESCRIPTION: A middle-aged male lying in bed in no distress RESPIRATORY SYSTEM: Unlabored breathing , decreased breath sounds at bases HEART: S1 S2 regular rate and rhythm , ABDOMEN: Soft , no tenderness EXTREMITIES: Left foot plantar wound is currently dressed with the drainage on the dressing - Labs CBC & Chem 7: 10/07/21 19:00 10/10/21 06:24 Labs: Abnormal Lab Results - Last 24 Hours (Table) 10/10/21 10/10/21 10/11/21 Range/Units 16:35 20:40 06:51 POC Glucose (mg/dL) 169 H 218 H 183 H (75-99) mg/dL 10/11/21 Range/Units 11:07 POC Glucose (mg/dL) 182 H (75-99) mg/dL Microbiology - Last 24 Hours (Table) 10/10/21 06:34 Blood Culture - Preliminary Blood No Growth after 24 hours 10/07/21 18:36 Blood Culture Gram Stain - Final Blood Blood Culture - Final Methicillin resist S. aureus 10/07/21 18:20 Blood Culture Gram Stain - Final Blood Blood Culture - Final Methicillin resist S. aureus 10/09/21 10:14 Blood Culture - Preliminary Blood No Growth after 24 hours 10/09/21 13:30 Gram Stain - Preliminary Toe - Left First Wound Culture - Preliminary Assessment and Plan (1) Infected wound Status: Acute Code(s): T14.8XXA - OTHER INJURY OF UNSPECIFIED BODY REGION, INITIAL ENCOUNTER; L08.9 - LOCAL INFECTION OF THE SKIN AND SUBCUTANEOUS TISSUE, UNSP SNOMED Code(s): 43124550 (2) Wound of left foot Status: Acute Code(s): S91.302A - UNSPECIFIED OPEN WOUND, LEFT FOOT, INITIAL ENCOUNTER SNOMED Code(s): 691921688 Plan: 1-Patient with admission to the hospital with left diabetic foot wound on a respirator concerning for underlyingOsteomyelitis in this patient with MRSA bacteremia and local culture positive for MRSA, patient may benefit from further surgical drainage to decrease the burden of infection however vascular surgery recommended against it. 2-Vancomycin pharmacy to dose target trough of 15 while watching kidney f unction and Vanco trough closely 3-PICC line has already been placed, and plan is for at least 6 weeks of IV antibiotic therapy on discharge with close outpatient follow-up Time with Patient: Less than 30
== END 2021-10-11 16:19 | disposition home health service (06) | DRG 872 ==
LOC: EC 16:44 → 4SSUR 19:36
PROVIDERS: ADMIT Hospitalist; ATTEND Hospitalist
PROC: 02HV33Z Insertion of Infusion Device into Superior Vena Cava, Percutaneous Approach (ICD-10-PCS; principal; 2021-10-10 10:15)
DX: A41.02 Sepsis due to Methicillin resistant Staphylococcus aureus (principal); T87.44 Infection of amputation stump, left lower extremity; M86.172 Other acute osteomyelitis, left ankle and foot; L03.116 Cellulitis of left lower limb; E11.610 Type 2 diabetes mellitus with diabetic neuropathic arthropathy; E11.42 Type 2 diabetes mellitus with diabetic polyneuropathy; L97.523 Non-pressure chronic ulcer of other part of left foot with necrosis of muscle; E11.69 Type 2 diabetes mellitus with other specified complication; Z89.412 Acquired absence of left great toe; Z89.511 Acquired absence of right leg below knee; Z20.822 Contact with and (suspected) exposure to COVID-19; E87.5 Hyperkalemia; E78.5 Hyperlipidemia, unspecified; I10 Essential (primary) hypertension; G47.30 Sleep apnea, unspecified; Z79.899 Other long term (current) drug therapy; Z90.49 Acquired absence of other specified parts of digestive tract; Z87.19 Personal history of other diseases of the digestive system; Z98.52 Vasectomy status; Z98.890 Other specified postprocedural states; Z88.1 Allergy status to other antibiotic agents; Z88.0 Allergy status to penicillin; Z88.8 Allergy status to other drugs, medicaments and biological substances; Z82.5 Family history of asthma and other chronic lower respiratory diseases; Z83.3 Family history of diabetes mellitus; Z82.49 Family history of ischemic heart disease and other diseases of the circulatory system; Z86.14 Personal history of Methicillin resistant Staphylococcus aureus infection; Z83.2 Family history of diseases of the blood and blood-forming organs and certain disorders involving the immune mechanism; Z83.49 Family history of other endocrine, nutritional and metabolic diseases; Z82.3 Family history of stroke; Z81.8 Family history of other mental and behavioral disorders; Z81.2 Family history of tobacco abuse and dependence
CPT/HCPCS: 36415; 36573; 80048; 80053; 80202; 81003; 82565; 83036; 83605; 84132; 85025; 85610; 85652; 85730; 86140; 87040; 87070; 87077; 87186; 87205; 87635; 93005; 94760; 96374; 99285

== ENCOUNTER → 2021-12-27 | Outpatient (CLI) | payer OTHER ==
[2021-12-27 22:13] LABS: Basophils # (A) 0.02 X 10*3/uL (0.00-0.10); Basophils % (A) 0.3 %; Eosinophils # (A) 0.16 X 10*3/uL (0.04-0.35); Eosinophils % (A) 2.3 %; HCT 39.3 % (39.6-50.0); HGB 12.8 g/dL (13.0-17.0); Immature Grans, Automated 0.6 %; Lymphocytes # (A) 2.02 X 10*3/uL (0.90-5.00); Lymphocytes % (A) 28.7 %; MCH 27.3 pg (27.0-32.0); MCHC 32.6 g/dL (32.0-37.0); MCV 83.8 fL (80.0-97.0); Mean Platelet Volume 10.4 fL (9.5-12.2); Monocytes % (A) 11.4 %; NRBC Per 100 WBC 0 /100 WBCS (0.0-0.0); Neutrophils % (A) 56.7 %; Platelet Count 268 X 10*3/uL (140-440); RBC 4.69 X 10*6/uL (4.40-5.60); RDW 14.6 % (11.5-14.5); WBC 7.04 X 10*3/uL (4.50-10.00)
[2021-12-27 22:24] LABS: African American GFR (CKD) 119.7 (60.0-200.0); Albumin 4.2 g/dL (3.8-4.9); Albumin/Globulin Ratio 1.59 (1.60-3.17); Anion Gap 12.9 mmol/L (10.00-18.00); BUN/Creat Ratio 24.1 Ratio (12.00-20.00); Blood Urea Nitrogen 20.7 mg/dL (9.0-27.0); Calcium 9.3 mg/dL (8.7-10.3); Carbon Dioxide 22.5 mmol/L (20.0-27.5); Globulin 2.7 g/dL (1.6-3.3); Non-African American GFR(CKD) 103.3 (60.0-200.0); Potassium 4.1 mmol/L (3.5-5.5); Total Bilirubin 0.2 mg/dL (0.30-1.20); Total Protein 6.9 g/dL (6.2-8.2)
[2021-12-27 22:25] LABS: Erythrocyte Sedimentation Rate 18 mm/Hr (0-15)
== END | disposition home or self-care (01) ==
LOC: LABWHC1 15:43
PROVIDERS: ATTEND Internal Medicine Infectious Disease
DX: Z00.00 Encounter for general adult medical examination without abnormal findings (principal); L02.612 Cutaneous abscess of left foot
CPT/HCPCS: 36415; 80053; 85025; 85652; 86140

== ENCOUNTER → 2022-03-18 | Outpatient (CLI) | payer OTHER ==
[2022-03-18 10:43] LABS: ALT 21 U/L (10-49); AST 24 U/L (14-35); African American GFR (CKD) 123.3 (60.0-200.0); Albumin 3.6 g/dL (3.8-4.9); Albumin/Globulin Ratio 0.97 (1.60-3.17); Alkaline Phosphatase 92 U/L (41-126); Calcium 9.4 mg/dL (8.7-10.3); Carbon Dioxide 24.6 mmol/L (20.0-27.5); Chloride 106 mmol/L (96-109); Chol/HDL Ratio 3.46 Ratio; Globulin 3.7 g/dL (1.6-3.3); Glucose 188 mg/dL (70-110); LDL Cholesterol,Calculated 42.1 mg/dL (0.0-131.0); Non-African American GFR(CKD) 106.4 (60.0-200.0); Potassium 5.1 mmol/L (3.5-5.5); Sodium 142 mmol/L (135-145); Total Protein 7.3 g/dL (6.2-8.2)
[2022-03-18 11:52] LABS: Microalbumin Creatinine Ratio <30 mg/g Creat (0-30); Urine Creatinine 85.1 mg/dL (39.0-259.0)
== END | disposition home or self-care (01) ==
LOC: LABWHC1 07:57
PROVIDERS: ATTEND Internal Medicine Endocrinology, Diabetes & Metabolism
DX: E11.9 Type 2 diabetes mellitus without complications (principal); E78.1 Pure hyperglyceridemia
CPT/HCPCS: 36415; 80053; 80061; 82043; 82570; 83036; 84443

== ENCOUNTER → 2022-07-22 | Outpatient (CLI) | payer OTHER ==
[2022-07-22 10:57] LABS: ALT 30 U/L (10-49); AST 25 U/L (14-35); African American GFR (CKD) 117.5 (60.0-200.0); Albumin 4.4 g/dL (3.8-4.9); Albumin/Globulin Ratio 1.69 (1.60-3.17); Alkaline Phosphatase 91 U/L (41-126); BUN/Creat Ratio 17.89 Ratio (12.00-20.00); Blood Urea Nitrogen 16.1 mg/dL (9.0-27.0); Calcium 9.6 mg/dL (8.7-10.3); Carbon Dioxide 23.3 mmol/L (20.0-27.5); Chloride 104 mmol/L (96-109); Chol/HDL Ratio 3.76 Ratio; Globulin 2.6 g/dL (1.6-3.3); Glucose 138 mg/dL (70-110); LDL Cholesterol,Calculated 30.7 mg/dL (0.0-131.0); Non-African American GFR(CKD) 101.4 (60.0-200.0); Potassium 4.6 mmol/L (3.5-5.5); Sodium 139 mmol/L (135-145)
[2022-07-22 14:15] LABS: Microalbumin Creatinine Ratio <30 mg/g Creat (0-30)
== END | disposition home or self-care (01) ==
LOC: LABWHC1 07:37
PROVIDERS: ATTEND Internal Medicine Endocrinology, Diabetes & Metabolism
DX: E11.65 Type 2 diabetes mellitus with hyperglycemia (principal)
CPT/HCPCS: 36415; 80053; 80061; 82043; 82570; 83036; 84443

== ENCOUNTER → 2022-11-11 | Outpatient (CLI) | payer OTHER ==
[2022-11-11 15:41] LABS: ALT 39 U/L (10-49); AST 28 U/L (14-35); African American GFR (CKD) 121.6 (60.0-200.0); Albumin 4.3 g/dL (3.8-4.9); Albumin/Globulin Ratio 2.08 (1.60-3.17); Alkaline Phosphatase 78 U/L (41-126); Blood Urea Nitrogen 14.8 mg/dL (9.0-27.0); Carbon Dioxide 21.7 mmol/L (20.0-27.5); Chloride 107 mmol/L (96-109); Chol/HDL Ratio 3.34 Ratio; Globulin 2.1 g/dL (1.6-3.3); Glucose 138 mg/dL (70-110); LDL Cholesterol,Calculated 26.9 mg/dL (0.0-131.0); Non-African American GFR(CKD) 104.9 (60.0-200.0); Potassium 4.8 mmol/L (3.5-5.5); Sodium 140 mmol/L (135-145); Total Protein 6.3 g/dL (6.2-8.2)
[2022-11-11 17:41] LABS: Microalbumin Creatinine Ratio <30 mg/g Creat (0-30)
== END | disposition home or self-care (01) ==
LOC: LABWHC1 07:15
PROVIDERS: ATTEND Internal Medicine Endocrinology, Diabetes & Metabolism
DX: E11.65 Type 2 diabetes mellitus with hyperglycemia (principal)
CPT/HCPCS: 36415; 80053; 80061; 82043; 82570; 83036; 84443

== ENCOUNTER → 2023-03-30 | Outpatient (CLI) | payer OTHER ==
[2023-03-30 14:18] LABS: Microalbumin Creatinine Ratio <9 mg/g Cr (0-30)
[2023-03-30 14:35] LABS: ALT 54 U/L (10-49); AST 34 U/L (14-35); Albumin 4.6 d/dL (3.8-4.9); Albumin/Globulin Ratio 2.56 Ratio (1.60-3.17); Alkaline Phosphatase 78 U/L (41-126); BUN/Creat Ratio 16.22 Ratio (12.00-20.00); Blood Urea Nitrogen 14.6 mg/dL (9.0-27.0); Calcium 9.6 mg/dL (8.7-10.3); Chloride 108 mmol/L (96-109); Chol/HDL Ratio 4.16 Ratio; Globulin 1.8 d/dL (1.6-3.3); Glucose 150 mg/dL (70-110); LDL Cholesterol,Calculated 9.7 mg/dL (0.0-131.0); Potassium 5.7 mmol/L (3.5-5.5); Sodium 145 mmol/L (135-145); Total Bilirubin 0.5 mg/dL (0.3-1.2); Total Protein 6.4 d/dL (6.2-8.2)
== END | disposition home or self-care (01) ==
LOC: LABWHC1 08:31
PROVIDERS: ATTEND Internal Medicine Endocrinology, Diabetes & Metabolism
DX: E11.65 Type 2 diabetes mellitus with hyperglycemia (principal)
CPT/HCPCS: 36415; 80053; 80061; 82043; 82570; 83036; 84443